=== PATIENT | male | born 1975 | race American Indian/Alaskan Native ===

== ENCOUNTER 2017-02-22 06:34 | Day surgery (SDC) | payer MEDICARE, OTHER ==
[~2017-02-22 06:34] MED LIST: Dextrose 5%-0.45% NaCl 1,000 ML IV SCH; Midazolam 1 MG/ML 2 ML SDV ONE; Sodium Chloride 0.9% 10 ML Syringe FLUSH PRN; fentaNYL 100 MCG/2 ML SDV ONE
[2017-02-22] MEDS ORDERED: fentaNYL 100 MCG/2 ML SDV IV ONE ×3 (07:41→15:02)
[2017-02-22] MEDS ORDERED: Midazolam 1 MG/ML 2 ML SDV IV ONE ×6 (07:42→15:02)
--- NOTE | 2017-02-22 09:08 | OR ---
{null, DATE: 02/22/2017 PROCEDURE: Total colonoscopy and multiple pinch biopsies. INSTRUMENT USED: CF-H180AL Olympus video colonoscope. Olympus distal attachment device. PREMEDICATIONS: Fentanyl 100 mcg intravenous, Versed 3 mg intravenous. Nasal O2 cannula. The procedure was done under pulse oximetry, BP recording, and threat monitoring analyst. INDICATION: The patient with rectal bleeding. Colonoscopic examination is done for detection of any polypoid lesions and removal, endoscopic hemostasis therapy if needed. DESCRIPTION OF PROCEDURE: Initial rectal exam was unremarkable. Rigid anoscopy showed small internal hemorrhoids and diffuse distal rectal mucosal erythema. The colonoscope was passed with ease. Photographs were taken of the distal rectum with diffuse erythema, multiple pinch biopsies were obtained and sent for histopathology. Multiple pinch biopsies were also obtained from the normal appearing sigmoid mucosa and sent for histopathology. The colonoscope was passed with ease up to the ileocecal area, photographs were taken of the normal- appearing cecum, identified by landmarks of appendiceal orifice and double- bulged ileocecal folds. The examination was compromised in a few areas due to the presence of large amount of fecal material. No bleeding was noted from any of the visualized areas at the commencement of the examination. No stricture. No vascular ectasia. No large isolated ulcerations seen. No polyp or tumor mass identified. Probing the proximal sides of folds and flexures, using adequate distention and clearing up the stool material, withdrawal of the scope was made. Multiple pinch biopsies were taken from the normal-appearing mucosa of the mid transverse colon, and distal descending colon, and sent for histopathology. No bleeding was noted from any of the visualized areas at the completion of examination. IMPRESSION: Internal hemorrhoids. The patient tolerated the procedure well. [facility] /[id number] }
[2017-02-22 09:52] VITALS: BP 124/80
--- NOTE | 2017-02-22 10:43 | LETTER ---
{null, 02/22/2017 Vannessa Verma MD [facility] [address] [place] [address] RE: OSCAR ARMOS : [address] Verma: Mr. Oscar Ramos had colonoscopic examination done this morning and he tolerated the procedure well. I herewith send a copy of the endoscopy note and photographs for your review. Thank you. Sincerely, [facility] /[id number] }
== END 2017-02-22 10:00 | disposition home or self-care (01) ==
LOC: DL.ENDO 06:34
PROVIDERS: ATTEND Internal Medicine Gastroenterology
DX: K62.89 Other specified diseases of anus and rectum (principal); K64.8 Other hemorrhoids; F10.21 Alcohol dependence, in remission; F17.210 Nicotine dependence, cigarettes, uncomplicated; Z88.1 Allergy status to other antibiotic agents; L30.9 Dermatitis, unspecified; I10 Essential (primary) hypertension; Z88.8 Allergy status to other drugs, medicaments and biological substances
CPT/HCPCS: 45380; 88305; 99282; J2250; J2930; J3010; J7042

== ENCOUNTER 2017-02-22 10:11 | Emergency (ER) | payer MEDICARE, OTHER ==
[2017-02-22 10:24] VITALS: BP 132/87
[2017-02-22] MEDS ORDERED: methylPREDNISolone Sodium Succinate 125 MG/2 ML SDV IM ONE (10:29)
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
== END 2017-02-22 10:46 | disposition home or self-care (01) ==
LOC: DL.ED 10:11
DX: L30.9 Dermatitis, unspecified (principal); I10 Essential (primary) hypertension; F17.210 Nicotine dependence, cigarettes, uncomplicated; Z88.8 Allergy status to other drugs, medicaments and biological substances
CPT/HCPCS: 99282; J2930

== ENCOUNTER 2017-03-03 21:40 | Emergency (ER) | payer MEDICARE, MEDICAID ==
[2017-03-03 22:54] VITALS: BP 151/96
[2017-03-03] MEDS ORDERED: methylPREDNISolone Sodium Succinate 125 MG/2 ML SDV IM ONE (22:55)
[2017-03-03] MEDS ORDERED: Acetaminophen/HYDROcodone 325-10 MG Tab PO ONE (22:55)
[2017-03-03] MEDS ORDERED: hydrOXYzine HCl 25 MG Tab PO ONE (22:55)
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
== END 2017-03-03 23:24 | disposition home or self-care (01) ==
LOC: DL.ED 21:40
DX: L30.8 Other specified dermatitis (principal); I10 Essential (primary) hypertension; L40.9 Psoriasis, unspecified; F17.210 Nicotine dependence, cigarettes, uncomplicated; Z88.8 Allergy status to other drugs, medicaments and biological substances; Z88.1 Allergy status to other antibiotic agents
CPT/HCPCS: 96372; 99282; A9270; J2930; 99283

== ENCOUNTER 2017-03-30 23:50 | Emergency (ER) | payer MEDICARE, OTHER, MEDICAID ==
[2017-03-30] MEDS ORDERED: Sodium Chloride 0.9% 1,000 ML IV ONE (23:51)
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
[2017-03-31 00:05] VITALS: BP 98/81
[2017-03-31 00:23] LABS: CHLORIDE,CL 106 mmol/L (101-111); SODIUM,NA 137 mmol/L (135-145)
== END 2017-03-31 00:47 ==
LOC: DL.ED 23:50
DX: F10.129 Alcohol abuse with intoxication, unspecified (principal); I10 Essential (primary) hypertension; F17.210 Nicotine dependence, cigarettes, uncomplicated; Y90.8 Blood alcohol level of 240 mg/100 ml or more
CPT/HCPCS: 36415; 80053; 85025; 96365; 99282; 99285; G0480; J7030

== ENCOUNTER 2017-04-23 21:34 | Emergency (ER) | payer MEDICARE, OTHER ==
[2017-04-23 21:46] VITALS: BP 134/93
[2017-04-23] MEDS ORDERED: Triamcinolone Acetonide 40 MG/ML 1 ML MDV INJECT ONE (22:25)
[2017-04-23] MEDS ORDERED: hydrOXYzine HCl 25 MG Tab PO ONE (22:38)
[2017-04-23] MEDS ORDERED: hydrOXYzine HCl 25 MG Tab ONE (22:38)
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
== END 2017-04-23 23:00 | disposition home or self-care (01) ==
LOC: DL.ED 21:34
DX: L30.9 Dermatitis, unspecified (principal); I10 Essential (primary) hypertension; L40.9 Psoriasis, unspecified; F17.210 Nicotine dependence, cigarettes, uncomplicated; Z88.1 Allergy status to other antibiotic agents; Z88.8 Allergy status to other drugs, medicaments and biological substances
CPT/HCPCS: 96372; 99283; A9270; J3301

== ENCOUNTER 2017-10-10 23:43 | Emergency (ER) | payer MEDICARE, OTHER ==
[2017-10-10 23:54] VITALS: BP 135/99
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
[2017-10-11 00:31] LABS: CHLORIDE,CL 106 mmol/L (101-111); SODIUM,NA 143 mmol/L (135-145)
[2017-10-11 00:32] LABS: ACETAMINOPHEN < 10
[2017-10-11] MEDS ORDERED: Bacitracin Oint 1 GM U/D Packet TOP ONE (00:50)
== END 2017-10-11 01:23 ==
LOC: DL.ED 23:43
DX: F10.129 Alcohol abuse with intoxication, unspecified (principal); Y90.8 Blood alcohol level of 240 mg/100 ml or more; R45.851 Suicidal ideations; I10 Essential (primary) hypertension; Z87.891 Personal history of nicotine dependence; Z88.1 Allergy status to other antibiotic agents; Z88.8 Allergy status to other drugs, medicaments and biological substances
CPT/HCPCS: 36415; 80053; 80305; 81001; 85025; 99285; G0480; 99284

== ENCOUNTER 2018-12-09 16:24 | Emergency (ER) | payer MEDICARE ==
[~2018-12-09 16:24] MED LIST changes: -Dextrose 5%-0.45% NaCl 1,000 ML IV SCH; +Diphtheria,Pertussis(Acell),Tetanus Vaccine 0.5 ML SDV IM ONE; -Midazolam 1 MG/ML 2 ML SDV ONE; +Ondansetron 4 MG/2 ML SDV IV ONE; -fentaNYL 100 MCG/2 ML SDV ONE
[2018-12-09 16:25] LABS: ANION GAP 22.7; CHLORIDE,CL 104 mmol/L (101-111); SODIUM,NA 141 mmol/L (135-145)
[2018-12-09] MEDS ORDERED: Lactated Ringers 1,000 ML IV ONE (16:36)
[2018-12-09] MEDS ORDERED: Lidocaine 1% 30 ML SDV INJECT ONE (16:36)
[2018-12-09] MEDS ORDERED: Clindamycin Phosphate 600 MG in Sodium Chloride 0.9% 100 ML IV ONE (17:43)
[2018-12-09] MEDS ORDERED: Bacitracin Oint 1 GM U/D Packet TOP ONE (19:15)
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
== END 2018-12-09 20:00 | disposition home or self-care (01) ==
LOC: DL.ED 16:24
DX: S06.0X9A Concussion with loss of consciousness of unspecified duration, initial encounter (principal); S01.511A Laceration without foreign body of lip, initial encounter; S01.512A Laceration without foreign body of oral cavity, initial encounter; F10.929 Alcohol use, unspecified with intoxication, unspecified; W18.30XA Fall on same level, unspecified, initial encounter; Y90.8 Blood alcohol level of 240 mg/100 ml or more; Z88.8 Allergy status to other drugs, medicaments and biological substances
CPT/HCPCS: 13152; 36415; 40650; 70450; 70486; 71045; 72125; 80053; 80305; 85025; 96361; 96365; 96372; 96375; 99284; 99285; G0480; J2001; J2405; J3490; J7050; J7120; 40830; 90715

== ENCOUNTER 2019-01-03 18:33 | Emergency (ER) | payer MEDICARE ==
[2019-01-03 19:03] VITALS: BP 139/103
[2019-01-03] MEDS ORDERED: methylPREDNISolone Sodium Succinate 125 MG/2 ML SDV IM ONE (19:26)
[2019-01-03] MEDS ORDERED: diphenhydrAMINE 50 MG Cap PO ONE (19:26)
[2019-01-03] MEDS ORDERED: Ibuprofen 800 MG Tab PO ONE (19:26)
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
== END 2019-01-03 19:46 | disposition home or self-care (01) ==
LOC: DL.ED 18:33
DX: L30.9 Dermatitis, unspecified (principal); I10 Essential (primary) hypertension; Z88.8 Allergy status to other drugs, medicaments and biological substances
CPT/HCPCS: 96372; 99282; A9270; J2930; Q0163

== ENCOUNTER 2019-08-09 07:01 | Emergency (ER) | payer MEDICARE, MEDICAID ==
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
[2019-08-09] MEDS ORDERED: Ondansetron 4 MG/2 ML SDV IV ONE (07:16)
[2019-08-09] MEDS ORDERED: Lidocaine 1% with EPINEPHrine 1:100,000 20 ML MDV INJECT ONE (07:16)
[2019-08-09] MEDS ORDERED: MVI, Adult with Vitamin K 10 ML, Thiamine 100 MG, Folic Acid 1 MG in Lactated Ringers 1... IV ONE ×4 (07:16)
[2019-08-09 07:17] VITALS: BP 116/80; PULSE 86
[2019-08-09 07:55] LABS: CHLORIDE,CL 108 mmol/L (101-111); SODIUM,NA 142 mmol/L (135-145)
[2019-08-09] MEDS ORDERED: Acetaminophen 325 MG Tab PO ONE (08:57)
== END 2019-08-09 09:08 | disposition home or self-care (01) ==
LOC: DL.ED 07:01
DX: S01.81XA Laceration without foreign body of other part of head, initial encounter (principal); S01.21XA Laceration without foreign body of nose, initial encounter; X58.XXXA Exposure to other specified factors, initial encounter
CPT/HCPCS: 12013; 36415; 70450; 72125; 80053; 80305; 81003; 82150; 82962; 83690; 85025; 99283; 99284; A9270; G0480; J2405; J3411; J7120; J3490

== ENCOUNTER 2019-11-17 17:32 | Emergency (ER) | payer MEDICARE, MEDICAID ==
[2019-11-17 17:43] VITALS: BP 142/97; PULSE 76
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
[2019-11-17] MEDS ORDERED: Acetaminophen 325 MG Tab PO ONE (18:27)
== END 2019-11-17 18:56 | disposition home or self-care (01) ==
LOC: DL.ED 17:32
DX: S80.01XA Contusion of right knee, initial encounter (principal); M25.461 Effusion, right knee; F10.220 Alcohol dependence with intoxication, uncomplicated; Z88.1 Allergy status to other antibiotic agents; Z88.8 Allergy status to other drugs, medicaments and biological substances; Y04.2XXA Assault by strike against or bumped into by another person, initial encounter; Y90.8 Blood alcohol level of 240 mg/100 ml or more
CPT/HCPCS: 36415; 73562-RT; 80305-QW; 80307; 81003; 99282; 99284-25

== ENCOUNTER 2019-12-11 18:57 | Emergency (ER) | payer MEDICARE, MEDICAID ==
[2019-12-11] MEDS ORDERED: Sodium Chloride 0.9% 10 ML Syringe FLUSH PRN (19:40)
[2019-12-11] MEDS ORDERED: MVI, Adult with Vitamin K 10 ML, Folic Acid 1 MG, Thiamine 100 MG in Lactated Ringers 1... IV ONE ×4 (19:40)
[2019-12-11 19:56] LABS: ANION GAP 15.6; CHLORIDE,CL 109 mmol/L (101-111); SODIUM,NA 142 mmol/L (135-145)
[2019-12-11 20:34] VITALS: BP 133/69; PULSE 82
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
[2019-12-11] MEDS ORDERED: Sodium Chloride 0.9% 1,000 ML IV ONE (20:52)
== END 2019-12-12 00:26 ==
LOC: DL.ED 18:57
DX: F10.129 Alcohol abuse with intoxication, unspecified (principal); Y90.8 Blood alcohol level of 240 mg/100 ml or more; I10 Essential (primary) hypertension; Z88.8 Allergy status to other drugs, medicaments and biological substances
CPT/HCPCS: 36415; 80053; 80307; 85025; 96365; 99282; 99284; J3411; J7120; J3490

== ENCOUNTER 2020-03-20 05:43 | Emergency (ER) | payer MEDICARE, MEDICAID ==
[2020-03-20 05:49] VITALS: BP 116/83; PULSE 88
[2020-03-20] MEDS ORDERED: Famotidine 20 MG/2 ML SDV IVPUSH ONE (06:05)
[2020-03-20] MEDS ORDERED: methylPREDNISolone Sodium Succinate 125 MG/2 ML SDV IVPUSH ONE (06:05)
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
== END 2020-03-20 06:59 | disposition home or self-care (01) ==
LOC: DL.ED 05:43
DX: L50.0 Allergic urticaria (principal); I10 Essential (primary) hypertension; F17.210 Nicotine dependence, cigarettes, uncomplicated; Z91.018 Allergy to other foods; Z88.8 Allergy status to other drugs, medicaments and biological substances; Z88.1 Allergy status to other antibiotic agents
CPT/HCPCS: 96374; 96375; 99283; J2930; J3490

== ENCOUNTER 2020-06-21 20:50 | Emergency (ER) | payer MEDICARE, MEDICAID ==
[2020-06-21] MEDS ORDERED: Ondansetron 4 MG/2 ML SDV ONE (21:04)
[2020-06-21] MEDS ORDERED: Sodium Chloride 0.9% 1,000 ML IV ONE (21:06)
[2020-06-21 21:11] VITALS: BP 121/81; PULSE 84
[2020-06-21] MEDS ORDERED: Ondansetron 4 MG/2 ML SDV IVPUSH ONE (21:14)
[2020-06-21] MEDS ORDERED: Pantoprazole 40 MG Vial IVPUSH ONE (21:31)
[2020-06-21 21:36] LABS: ANION GAP 14.6 mEq/L (7-13); CHLORIDE,CL 108 mmol/L (98-107); SODIUM,NA 147 mmol/L (136-145)
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
== END 2020-06-21 22:40 ==
LOC: DL.ED 20:50
DX: T49.0X2A Poisoning by local antifungal, anti-infective and anti-inflammatory drugs, intentional self-harm, initial encounter (principal); F10.129 Alcohol abuse with intoxication, unspecified; U07.1 COVID-19; I10 Essential (primary) hypertension; F17.200 Nicotine dependence, unspecified, uncomplicated; Z88.8 Allergy status to other drugs, medicaments and biological substances; Z88.1 Allergy status to other antibiotic agents; Z91.018 Allergy to other foods; Y90.8 Blood alcohol level of 240 mg/100 ml or more
CPT/HCPCS: 36415; 80053; 80307; 82150; 83605; 83690; 85025; 96361; 96374; 96375; 99284; 99285; C9113; G0480; J2405; J7030

== ENCOUNTER 2020-07-05 07:12 | Emergency (ER) | payer MEDICARE, MEDICAID ==
[2020-07-05] MEDS ORDERED: methylPREDNISolone Sodium Succinate 125 MG/2 ML SDV IVPUSH ONE (07:19)
[2020-07-05] MEDS ORDERED: Lactated Ringers 1,000 ML IV ONE (07:19)
[2020-07-05] MEDS ORDERED: Famotidine 20 MG/2 ML SDV IVPUSH ONE (07:19)
[2020-07-05 07:24] VITALS: BP 110/70; PULSE 82
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
== END 2020-07-05 09:12 | disposition home or self-care (01) ==
LOC: DL.ED 07:12
DX: L50.0 Allergic urticaria (principal); I10 Essential (primary) hypertension; F17.210 Nicotine dependence, cigarettes, uncomplicated; Z88.1 Allergy status to other antibiotic agents; Z88.8 Allergy status to other drugs, medicaments and biological substances; Z91.018 Allergy to other foods
CPT/HCPCS: 96361; 96374; 96375; 99284; J2930; J3490; J7120; 99283

== ENCOUNTER 2020-08-06 22:29 | Emergency (ER) | payer MEDICARE, MEDICAID ==
[2020-08-06 22:55] VITALS: BP 129/77; PULSE 103
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
--- NOTE | 2020-08-06 23:24 | CR ---
PROCEDURE INFORMATION: Exam: XR Right Knee Exam date and time: 08/06/2020 11:13 PM Age: 45 years old Clinical indication: Other: Etoh-uncooperative; Additional info: Fell few days ago TECHNIQUE: Imaging protocol: XR Right knee. Views: 1 or 2 views. COMPARISON: CR Knee 3V Rt 11/17/2019 5:48 PM FINDINGS: Bones/joints: A moderate-sized joint effusion is present. No fractures are identified. Alignment is anatomic. Soft tissues: Normal. IMPRESSION: 1. Moderate size joint effusion. No acute fracture identified.
== END 2020-08-07 00:09 | disposition home or self-care (01) ==
LOC: DL.ED 22:29
DX: S61.211A Laceration without foreign body of left index finger without damage to nail, initial encounter (principal); M25.461 Effusion, right knee; I10 Essential (primary) hypertension; Z88.8 Allergy status to other drugs, medicaments and biological substances; Z88.1 Allergy status to other antibiotic agents; Z91.018 Allergy to other foods; W45.8XXA Other foreign body or object entering through skin, initial encounter
CPT/HCPCS: 73560-RT; 99283-25

== ENCOUNTER 2020-08-14 21:20 | Emergency (ER) | payer MEDICARE, MEDICAID ==
[2020-08-14 21:27] VITALS: BP 100/54; PULSE 86
[2020-08-14] MEDS ORDERED: MVI, Adult with Vitamin K 10 ML, Folic Acid 1 MG, Thiamine 100 MG in Lactated Ringers 1... IV ONE ×4 (21:53)
[2020-08-14 22:11] LABS: ANION GAP 15.5 mEq/L (7-13); CHLORIDE,CL 108 mmol/L (98-107); SODIUM,NA 146 mmol/L (136-145)
--- NOTE | 2020-08-14 22:33 | CR ---
PROCEDURE INFORMATION: Exam: XR Right Knee Exam date and time: 08/14/2020 9:48 PM Age: 45 years old Clinical indication: Injury or trauma; Fall; Laceration; Patella or knee; Right; Foreign body involvement not specified; Additional info: Pain post fall TECHNIQUE: Imaging protocol: XR Right knee. Views: 3 views. COMPARISON: CR Knee 1V or 2V Rt 08/06/2020 11:13 PM FINDINGS: Bones/joints: Normal. Soft tissues: Normal. IMPRESSION: No fracture.
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
== END 2020-08-15 01:34 ==
LOC: DL.ED 21:20
DX: M25.561 Pain in right knee (principal); F10.920 Alcohol use, unspecified with intoxication, uncomplicated; I10 Essential (primary) hypertension; F17.210 Nicotine dependence, cigarettes, uncomplicated; Z91.018 Allergy to other foods; Z88.1 Allergy status to other antibiotic agents; Z88.8 Allergy status to other drugs, medicaments and biological substances; Y90.8 Blood alcohol level of 240 mg/100 ml or more
CPT/HCPCS: 36415; 73562; 80053; 80305; 80307; 81001; 85025; 93005; 96365; 96366; 99284; J3411; J7120; J3490

== ENCOUNTER 2020-09-14 17:33 | Emergency (ER) | payer MEDICARE, MEDICAID ==
[2020-09-14 18:09] VITALS: BP 146/91; PULSE 98
[2020-09-14] MEDS ORDERED: Dexamethasone 4 MG/ML SDV IM ONE (18:33)
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
[2020-09-14 19:13] LABS: CHLORIDE,CL 102 mmol/L (98-107); SODIUM,NA 138 mmol/L (136-145)
== END 2020-09-14 18:55 | disposition left against medical advice (07) ==
LOC: DL.ED 17:33
DX: L30.9 Dermatitis, unspecified (principal); H60.543 Acute eczematoid otitis externa, bilateral; I10 Essential (primary) hypertension; F17.210 Nicotine dependence, cigarettes, uncomplicated; Z88.8 Allergy status to other drugs, medicaments and biological substances; Z88.1 Allergy status to other antibiotic agents; Z91.018 Allergy to other foods
CPT/HCPCS: 36415; 80053; 85025; 86140; 96372; 99283; J1100

== ENCOUNTER 2020-10-11 06:31 | Emergency (ER) | payer MEDICARE, MEDICAID ==
[2020-10-11 06:35] VITALS: BP 109/75; PULSE 86
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
[2020-10-11] MEDS ORDERED: Naloxone 2 MG/2 ML Syringe IVPUSH ONE (07:08)
[2020-10-11] MEDS ORDERED: Naloxone 2 MG/2 ML Syringe IM ONE (07:08)
[2020-10-11 07:24] LABS: ANION GAP 18.7 mEq/L (7-13); CHLORIDE,CL 105 mmol/L (98-107); SODIUM,NA 141 mmol/L (136-145)
== END 2020-10-11 08:35 | disposition home or self-care (01) ==
LOC: DL.ED 06:31
DX: F10.129 Alcohol abuse with intoxication, unspecified (principal); F15.10 Other stimulant abuse, uncomplicated; L30.1 Dyshidrosis [pompholyx]; I10 Essential (primary) hypertension; Y90.8 Blood alcohol level of 240 mg/100 ml or more; Z88.8 Allergy status to other drugs, medicaments and biological substances; Z88.1 Allergy status to other antibiotic agents; Z91.018 Allergy to other foods
CPT/HCPCS: 36415; 80053; 80307; 85025; 86140; 96372; 99283; 99284; J2310

== ENCOUNTER 2020-10-22 13:20 | Observation (INO) | payer MEDICARE, MEDICAID ==
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
[2020-10-22] MEDS ORDERED: MVI, Adult with Vitamin K 10 ML, Thiamine 100 MG, Folic Acid 1 MG in Lactated Ringers 1... IV ONE ×4 (13:34)
[2020-10-22 14:14] LABS: ANION GAP 16.1 mEq/L (7-13); CHLORIDE,CL 110 mmol/L (98-107); SODIUM,NA 144 mmol/L (136-145)
[2020-10-22] MEDS ORDERED: LORazepam 2 MG/ML SDV IVPUSH PRN (15:45)
[2020-10-22] MEDS ORDERED: Docusate Sodium 100 MG Cap PO PRN (15:46)
[2020-10-22] MEDS ORDERED: Ondansetron 4 MG Tab.DIS PO PRN (15:46)
[2020-10-22] MEDS ORDERED: Temazepam 15 MG Cap PO PRN (15:46)
[2020-10-22] MEDS ORDERED: Sodium Chloride 0.9% 10 ML Syringe FLUSH PRN (15:46)
[2020-10-22] MEDS ORDERED: Morphine 2 MG/ML SYRINGE IVPUSH PRN (15:46)
[2020-10-22] MEDS ORDERED: Acetaminophen 325 MG Tab PO PRN (15:46)
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
[2020-10-22] MEDS ORDERED: Sodium Chloride 0.9% 1,000 ML IV SCH (16:00)
[2020-10-22] MEDS: predniSONE 20 MG Tab PO SCH ×2 (19:52→20:03)
[2020-10-22] MEDS: Acetaminophen/HYDROcodone 325-10 MG Tab PO PRN (19:53)
[2020-10-22] MEDS: LORazepam 0.5 MG Tab PO PRN (19:53)
[2020-10-22] MEDS: Levofloxacin 500 MG Tab PO SCH (20:57)
[2020-10-22] MEDS ORDERED: Hydrocortisone 1% Oint 28 GM Tube TOP SCH (21:00)
[2020-10-22] MEDS: Heparin Sodium 5,000 Units/ML Vial SUBCUT SCH (21:14)
[2020-10-22] MEDS: Hydrocortisone 1% Crm 30 GM Tube TOP SCH (23:35)
[2020-10-23] MEDS: Acetaminophen/HYDROcodone 325-10 MG Tab PO PRN (00:30)
[2020-10-23] MEDS: LORazepam 0.5 MG Tab PO PRN ×4 (01:29→21:33)
[2020-10-23] MEDS: hydrOXYzine HCl 25 MG Tab PO SCH ×4 (03:02→20:57)
[2020-10-23] MEDS: Heparin Sodium 5,000 Units/ML Vial SUBCUT SCH ×4 (04:53→20:59)
[2020-10-23 07:10] LABS: ANION GAP 13.8 mEq/L (7-13); CHLORIDE,CL 109 mmol/L (98-107); SODIUM,NA 141 mmol/L (136-145)
[2020-10-23] MEDS: Multivitamins, Therapeutic with Minerals Tab PO SCH (09:13)
[2020-10-23] MEDS: predniSONE 20 MG Tab PO SCH ×2 (09:14→20:57)
[2020-10-23] MEDS: Thiamine 100 MG Tab PO SCH (09:14)
[2020-10-23] MEDS: Hydrocortisone 1% Crm 30 GM Tube TOP SCH ×2 (09:14→20:58)
[2020-10-23] MEDS: Folic Acid 1 MG Tab PO SCH (09:14)
--- NOTE | 2020-10-23 12:02 | PCM.PN ---
- General Info Date of Service: 10/23/20 Admission Dx/Problem (Free Text): Admission Diagnosis/Problem Admission Diagnosis/Problem Intoxication Subjective Update: the patient is quite withdrawn and minimally at communicating. Last night he got a hold of skin disinfectant spray and drank the content. Continues to have severely dry, flaky skin. Denies pain. Minimally communicative and not volunteering with symptoms, - Patient Data Vitals - Most Recent: Last Vital Signs Temp 100.2 F 10/23/20 00:00 Pulse 99 10/23/20 00:00 Resp 20 10/23/20 00:00 BP 150/84 H 10/23/20 00:00 Pulse Ox 95 10/23/20 00:00 Weight - Most Recent: 218 lb 8 oz I&O - Last 24 Hours: Intake & Output 10/22/20 10/23/20 10/23/20 22:59 06:59 14:59 Intake Total 820 600 Output Total 400 Balance 820 200 Lab Results Last 24 Hours: Laboratory Results - last 24 hr 10/22/20 10/22/20 10/22/20 Range/Units 13:46 13:46 14:12 WBC 11.7 H (5.0-10.0) 10^3/uL RBC 4.15 L (4.6-6.2) 10^6/uL Hgb 13.7 L (14.0-18.0) g/dL Hct 41.2 (40.0-54.0) % MCV 99.3 (80-100) fL MCH 33.0 (27.0-34.0) pg MCHC 33.3 (33.0-35.0) g/dL Plt Count 442 D (150-450) 10^3/uL Neut % (Auto) 32.9 L (42.2-75.2) % Lymph % (Auto) 17.0 L (20.5-50.1) % [place] % (Auto) 7.2 (2-8) % Eos % (Auto) 42.6 H (1.0-3.0) % Baso % (Auto) 0.3 (0.0-1.0) % Add Manual Diff Yes Neutrophils % (Manual) 35 L (42-75) % Lymphocytes % (Manual) 15 L (20-50) % Atypical Lymphs % % Monocytes % (Manual) 6 (2-8) % Eosinophils % (Manual) 44 H (1-3) % Basophils % (Manual) Sodium 144 (136-145) mmol/L Potassium 4.1 (3.5-5.1) mmol/L Chloride 110 H (98-107) mmol/L Carbon Dioxide 22 (21-32) mmol/L Anion Gap 16.1 H (7-13) mEq/L BUN 7 (7-18) mg/dL Creatinine 0.75 (0.70-1.30) mg/dL Est Cr Clr Drug Dosing 125.72 mL/min Estimated GFR (MDRD) > 60 BUN/Creatinine Ratio 9.3 (No establ ref range) Glucose 95 (74-99) mg/dL Calcium 7.2 L (8.5-10.1) mg/dL Phosphorus (2.6-4.7) mg/dL Magnesium 2.0 (1.8-2.4) mg/dL Total Bilirubin 0.2 (0.2-1.0) mg/dL AST 21 (15-37) U/L ALT 16 (16-63) U/L Alkaline Phosphatase 116 (46-116) U/L Total Protein 5.9 L (6.4-8.2) g/dL Albumin 2.6 L (3.4-5.0) g/dL Globulin 3.3 Albumin/Globulin Ratio 0.79 Urine Opiates Screen (NEGATIVE) Ur Oxycodone Screen (NEGATIVE) Urine Methadone Screen (NEGATIVE) Ur Barbiturates Screen (NEGATIVE) U Tricyclic Antidepress (NEGATIVE) Ur Phencyclidine Scrn (NEGATIVE) Ur Amphetamine Screen (NEGATIVE) U Methamphetamines Scrn (NEGATIVE) Urine MDMA Screen (NEGATIVE) U Benzodiazepines Scrn (NEGATIVE) Urine Cocaine Screen (NEGATIVE) U Marijuana (THC) Screen (NEGATIVE) Ethyl Alcohol 336 (0) mg/dL SARS-CoV-2 RNA (FABI) Negative (NEGATIVE) 10/23/20 10/23/20 10/23/20 Range/Units 02:05 06:10 06:10 WBC 5.3 (5.0-10.0) 10^3/uL RBC 3.63 L (4.6-6.2) 10^6/uL Hgb 11.9 L D (14.0-18.0) g/dL Hct 36.3 L (40.0-54.0) % MCV 100.0 (80-100) fL MCH 32.8 (27.0-34.0) pg MCHC 32.8 L (33.0-35.0) g/dL Plt Count 417 (150-450) 10^3/uL Neut % (Auto) 67.0 (42.2-75.2) % Lymph % (Auto) 21.8 (20.5-50.1) % [place] % (Auto) 9.8 H (2-8) % Eos % (Auto) 0.8 L (1.0-3.0) % Baso % (Auto) 0.6 (0.0-1.0) % Add Manual Diff Yes Neutrophils % (Manual) 67 (42-75) % Lymphocytes % (Manual) 19 L (20-50) % Atypical Lymphs % 7 % Monocytes % (Manual) 5 (2-8) % Eosinophils % (Manual) 1 (1-3) % Basophils % (Manual) 1 Sodium 141 (136-145) mmol/L Potassium 4.8 (3.5-5.1) mmol/L Chloride 109 H (98-107) mmol/L Carbon Dioxide 23 (21-32) mmol/L Anion Gap 13.8 H (7-13) mEq/L BUN 7 (7-18) mg/dL Creatinine 0.62 L (0.70-1.30) mg/dL Est Cr Clr Drug Dosing 152.08 mL/min Estimated GFR (MDRD) > 60 BUN/Creatinine Ratio (No establ ref range) Glucose 127 H (74-99) mg/dL Calcium 7.3 L (8.5-10.1) mg/dL Phosphorus 3.1 (2.6-4.7) mg/dL Magnesium 1.9 (1.8-2.4) mg/dL Total Bilirubin (0.2-1.0) mg/dL AST (15-37) U/L ALT (16-63) U/L Alkaline Phosphatase (46-116) U/L Total Protein (6.4-8.2) g/dL Albumin (3.4-5.0) g/dL Globulin Albumin/Globulin Ratio Urine Opiates Screen Positive H (NEGATIVE) Ur Oxycodone Screen Negative (NEGATIVE) Urine Methadone Screen Negative (NEGATIVE) Ur Barbiturates Screen Negative (NEGATIVE) U Tricyclic Antidepress Negative (NEGATIVE) Ur Phencyclidine Scrn Negative (NEGATIVE) Ur Amphetamine Screen Negative (NEGATIVE) U Methamphetamines Scrn Positive H (NEGATIVE) Urine MDMA Screen Negative (NEGATIVE) U Benzodiazepines Scrn Positive H (NEGATIVE) Urine Cocaine Screen Negative (NEGATIVE) U Marijuana (THC) Screen Negative (NEGATIVE) Ethyl Alcohol (0) mg/dL SARS-CoV-2 RNA (FABI) (NEGATIVE) Med Orders - Current: Current Medications Acetaminophen (Tylenol) 650 mg PO Q4H PRN PRN Reason: Pain (Mild 1-3)/fever Hydrocodone Bitart/Acetaminophen ([place] 325-10 Mg) 1 tab PO Q4H PRN PRN Reason: Pain (moderate 4-6) Last Admin: 10/23/20 00:30 Dose: 1 tab Documented by: Docusate Sodium (Colace) 100 mg PO BID PRN PRN Reason: Constipation Emollient Ointment (Hydrocerin Lotion) 0 ml TOP TID [facility] Folic Acid (Folic Acid) 1 mg PO DAILY [facility] Last Admin: 10/23/20 09:14 Dose: 1 mg Documented by: Heparin Sodium (Porcine) (Heparin Sodium) 5,000 units SUBCUT Q8HR [facility] Last Admin: 10/23/20 05:08 Dose: Not Given Documented by: Hydrocortisone (Hydrocortisone 1% Crm) 0 gm TOP Q12H [facility] Last Admin: 10/23/20 09:14 Dose: 1 gram Documented by: Hydroxyzine HCl (Atarax) 50 mg PO Q6H [facility] Last Admin: 10/23/20 09:14 Dose: 50 mg Documented by: Sodium Chloride (Normal Saline) 1,000 mls @ 100 mls/hr IV ASDIRECTED [facility] Last Infusion: 10/23/20 04:53 Dose: 0 mls/hr Documented by: Levofloxacin (Levaquin) 500 mg PO Q24H [facility] Last Admin: 10/22/20 20:57 Dose: 500 mg Documented by: Lorazepam (Ativan) 0 mg PO TITRATE PRN; Protocol PRN Reason: [facility] protocol Last Admin: 10/23/20 09:16 Dose: 2 mg Documented by: Lorazepam (Ativan) 0 mg IVPUSH TITRATE PRN; Protocol PRN Reason: [facility] protocol Last Admin: 10/23/20 03:02 Dose: 2 mg Documented by: Morphine Sulfate (Morphine) 2 mg IVPUSH Q2H PRN PRN Reason: Pain (severe 7-10) Multivitamins/Minerals (Vitamins And Minerals) 1 tab PO WITHBREAKFAST [facility] Last Admin: 10/23/20 09:13 Dose: 1 tab Documented by: Ondansetron HCl (Zofran Odt) 4 mg PO Q6H PRN PRN Reason: nausea, able to take PO Last Admin: 10/22/20 20:57 Dose: 4 mg Documented by: Prednisone (Prednisone) 20 mg PO BID [facility] Last Admin: 10/23/20 09:14 Dose: 20 mg Documented by: Sodium Chloride (Saline Flush) 10 ml FLUSH ASDIRECTED PRN PRN Reason: Keep Vein Open Temazepam (Restoril) 15 mg PO BEDTIME PRN PRN Reason: Sleep Thiamine HCl (Vitamin B-1) 100 mg PO DAILY [facility] Last Admin: 10/23/20 09:14 Dose: 100 mg Documented by: Discontinued Medications Hydrocortisone (Hydrocortisone 1% Oint) 0 gm TOP BID [facility] Last Admin: 10/22/20 23:33 Dose: Not Given Documented by: Multivitamins/Minerals 10 ml/Thiamine HCl 100 mg/ Folic Acid 1 mg/ Lactated Ringer's 1,011.2 mls @ 999 mls/hr IV .BOLUS ONE Stop: 10/22/20 14:34 Last Admin: 10/22/20 13:51 Dose: 999 mls/hr Documented by: - Exam General: Alert, Oriented Neck: Supple Lungs: Clear to Auscultation, Normal Respiratory Effort Cardiovascular: Regular Rate, Regular Rhythm GI/Abdominal Exam: Normal Bowel Sounds, Soft, Non-Tender Extremities: No: Pedal Edema Skin: Other (whole body is covered with flaky, dry skin) Sepsis Event Note - Evaluation Sepsis Screening Result: No Definite Risk - Problem List & Annotations (1) Alcohol intoxication SNOMED Code(s): 02147357 Code(s): F10.129 - ALCOHOL ABUSE WITH INTOXICATION, UNSPECIFIED Status: Acute Current Visit: No (2) Eczema SNOMED Code(s): 67793495 Code(s): L30.9 - DERMATITIS, UNSPECIFIED Status: Acute Current Visit: No (3) Methamphetamine abuse SNOMED Code(s): 110746210 Code(s): F15.10 - OTHER STIMULANT ABUSE, UNCOMPLICATED Status: Acute Current Visit: No - Problem List Review Problem List Initiated/Reviewed/Updated: Yes - My Orders Last 24 Hours: My Active Orders 10/22/20 15:42 Wound Care [RC] Q12HR 10/22/20 15:45 LORazepam [Ativan] See Protocol IVPUSH TITRATE PRN LORazepam [Ativan] See Protocol PO TITRATE PRN 10/22/20 15:46 Oxygen Therapy [RC] PRN Up With Assistance [RC] ASDIRECTED VTE/DVT Education [RC] PER UNIT ROUTINE Vital Signs [RC] 00,04,08,12,16,20 Acetaminophen [TylenoL] 650 mg PO Q4H PRN Acetaminophen/HYDROcodone [[place] 325-10 MG] 1 tab PO Q4H PRN Docusate Sodium [Colace] 100 mg PO BID PRN Morphine 2 mg IVPUSH Q2H PRN Ondansetron [Zofran ODT] 4 mg PO Q6H PRN Sodium Chloride 0.9% [Saline Flush] 10 ml FLUSH ASDIRECTED PRN Temazepam [Restoril] 15 mg PO BEDTIME PRN Peripheral IV Insertion Adult [OM.PC] Routine Resuscitation Status Routine 10/22/20 15:47 Antiembolic Hose [OM.PC] Per Unit Routine 10/22/20 15:48 Antiembolic Devices [RC] QSHIFT Peripheral IV Care [RC] 10/22/20 16:00 Sodium Chloride 0.9% [Normal Saline] 1,000 ml IV ASDIRECTED 10/22/20 Dinner Regular Diet [DIET] 10/22/20 20:00 levoFLOXacin [Levaquin] 500 mg PO Q24H 10/22/20 21:00 predniSONE 20 mg PO BID 10/22/20 21:45 Hydrocortisone [Hydrocortisone 1% Crm] 0 gm TOP Q12H 10/22/20 22:00 Heparin Sodium 5,000 units SUBCUT Q8HR 10/23/20 03:00 hydrOXYzine HCL [Atarax] 50 mg PO Q6H 10/23/20 08:00 Multivitamins/Minerals [Vitamins and Minerals] 1 tab PO WITHBREAKFAST 10/23/20 09:00 Folic Acid 1 mg PO DAILY Thiamine [Vitamin B-1] 100 mg PO DAILY 10/23/20 14:00 I-Prop Myr/Mineral Oil/Water [Hydrocerin Lotion] See Dose Instructions TOP TID - Plan Plan:: 45-year-old that came in with dry, painful scaly rash of the whole body. 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 Severe eczema covering the whole body Will use oral prednisone Will use local hydrocortisone cream with generous amounts ofmoisturizer high risk for cellulitis, infection through the skin started levofloxacin prophylactically pain control will be with Tylenol, hydrocodone, IV morphine for mild, moderate, severe pain Alcohol addiction, substance abuse Will need treatment when skin condition is stabilizing Risk for alcohol withdrawal Will use Ativan per [facility] protocol Will hydrate Follow electrolytes and replace them as needed Chronic alcohol abuse Give thiamine, folate, multivitamin DVT prophylaxis with subcutaneous heparin
[2020-10-23] MEDS: Isopropyl Myristate/Mineral Oil/Water Lotion 240 ML Bottle TOP SCH ×2 (14:04→20:58)
[2020-10-23] MEDS: Levofloxacin 500 MG Tab PO SCH (20:57)
[2020-10-24] MEDS: hydrOXYzine HCl 25 MG Tab PO SCH ×4 (03:35→20:08)
[2020-10-24] MEDS: Heparin Sodium 5,000 Units/ML Vial SUBCUT SCH ×4 (05:14→22:09)
[2020-10-24] MEDS: LORazepam 0.5 MG Tab PO PRN ×3 (05:21→13:10)
[2020-10-24] MEDS: Acetaminophen/HYDROcodone 325-10 MG Tab PO PRN ×2 (05:21→20:11)
[2020-10-24 06:53] LABS: ANION GAP 12.7 mEq/L (7-13); CHLORIDE,CL 104 mmol/L (98-107); SODIUM,NA 140 mmol/L (136-145)
[2020-10-24] MEDS: Thiamine 100 MG Tab PO SCH (08:55)
[2020-10-24] MEDS: predniSONE 20 MG Tab PO SCH ×2 (08:55→20:08)
[2020-10-24] MEDS: Folic Acid 1 MG Tab PO SCH (08:55)
[2020-10-24] MEDS: Hydrocortisone 1% Crm 30 GM Tube TOP SCH ×3 (08:56→22:09)
[2020-10-24] MEDS: Multivitamins, Therapeutic with Minerals Tab PO SCH (08:56)
[2020-10-24] MEDS: Isopropyl Myristate/Mineral Oil/Water Lotion 240 ML Bottle TOP SCH ×3 (08:57→20:08)
--- NOTE | 2020-10-24 11:46 | PCM.PN ---
- General Info Date of Service: 10/24/20 Admission Dx/Problem (Free Text): Admission Diagnosis/Problem Admission Diagnosis/Problem Intoxication Functional Status: Reports: Pain Controlled, Tolerating Diet - Review of Systems General: Denies: Fever Pulmonary: Denies: Shortness of Breath Cardiovascular: Denies: Chest Pain Gastrointestinal: Denies: Abdominal Pain Skin: Reports: Rash - Patient Data Vitals - Most Recent: Last Vital Signs Temp 99.4 F 10/24/20 08:00 Pulse 90 10/24/20 08:00 Resp 20 10/24/20 08:00 BP 154/80 H 10/24/20 08:00 Pulse Ox 99 10/24/20 08:00 Weight - Most Recent: 218 lb 8 oz I&O - Last 24 Hours: Intake & Output 10/23/20 10/24/20 10/24/20 22:59 06:59 14:59 Intake Total 180 380 Balance 180 380 Lab Results Last 24 Hours: Laboratory Results - last 24 hr 10/24/20 10/24/20 Range/Units 06:15 06:15 WBC 7.1 (5.0-10.0) 10^3/uL RBC 3.48 L (4.6-6.2) 10^6/uL Hgb 11.4 L (14.0-18.0) g/dL Hct 34.5 L (40.0-54.0) % MCV 99.1 (80-100) fL MCH 32.8 (27.0-34.0) pg MCHC 33.0 (33.0-35.0) g/dL Plt Count 399 (150-450) 10^3/uL Neut % (Auto) 55.3 (42.2-75.2) % Lymph % (Auto) 32.2 (20.5-50.1) % Foster % (Auto) 9.0 H (2-8) % Eos % (Auto) 2.7 (1.0-3.0) % Baso % (Auto) 0.8 (0.0-1.0) % Sodium 140 (136-145) mmol/L Potassium 3.7 (3.5-5.1) mmol/L Chloride 104 (98-107) mmol/L Carbon Dioxide 27 (21-32) mmol/L Anion Gap 12.7 (7-13) mEq/L BUN 6 L (7-18) mg/dL Creatinine 0.66 L (0.70-1.30) mg/dL Est Cr Clr Drug Dosing 142.87 mL/min Estimated GFR (MDRD) > 60 Glucose 130 H (74-99) mg/dL Calcium 7.5 L (8.5-10.1) mg/dL Phosphorus 2.3 L (2.6-4.7) mg/dL Magnesium 2.0 (1.8-2.4) mg/dL Med Orders - Current: Current Medications Acetaminophen (Tylenol) 650 mg PO Q4H PRN PRN Reason: Pain (Mild 1-3)/fever Hydrocodone Bitart/Acetaminophen ([place] 325-10 Mg) 1 tab PO Q4H PRN PRN Reason: Pain (moderate 4-6) Last Admin: 10/24/20 05:21 Dose: 1 tab Documented by: Docusate Sodium (Colace) 100 mg PO BID PRN PRN Reason: Constipation Emollient Ointment (Hydrocerin Lotion) 0 ml TOP TID [facility] Last Admin: 10/24/20 08:57 Dose: 1 applic Documented by: Folic Acid (Folic Acid) 1 mg PO DAILY [facility] Last Admin: 10/24/20 08:55 Dose: 1 mg Documented by: Heparin Sodium (Porcine) (Heparin Sodium) 5,000 units SUBCUT Q8HR [facility] Last Admin: 10/24/20 05:14 Dose: 5,000 units Documented by: Hydrocortisone (Hydrocortisone 1% Crm) 0 gm TOP Q12H [facility] Last Admin: 10/24/20 08:56 Dose: 30 gram Documented by: Hydroxyzine HCl (Atarax) 50 mg PO Q6H [facility] Last Admin: 10/24/20 08:56 Dose: 50 mg Documented by: Sodium Chloride (Normal Saline) 1,000 mls @ 100 mls/hr IV ASDIRECTED [facility] Last Infusion: 10/23/20 04:53 Dose: 0 mls/hr Documented by: Levofloxacin (Levaquin) 500 mg PO Q24H [facility] Last Admin: 10/23/20 20:57 Dose: 500 mg Documented by: Lorazepam (Ativan) 0 mg PO TITRATE PRN; Protocol PRN Reason: [facility] protocol Last Admin: 10/24/20 09:06 Dose: 1 mg Documented by: Lorazepam (Ativan) 0 mg IVPUSH TITRATE PRN; Protocol PRN Reason: [facility] protocol Last Admin: 10/23/20 03:02 Dose: 2 mg Documented by: Morphine Sulfate (Morphine) 2 mg IVPUSH Q2H PRN PRN Reason: Pain (severe 7-10) Multivitamins/Minerals (Vitamins And Minerals) 1 tab PO WITHBREAKFAST [facility] Last Admin: 10/24/20 08:56 Dose: 1 tab Documented by: Ondansetron HCl (Zofran Odt) 4 mg PO Q6H PRN PRN Reason: nausea, able to take PO Last Admin: 10/22/20 20:57 Dose: 4 mg Documented by: Prednisone (Prednisone) 20 mg PO BID [facility] Last Admin: 10/24/20 08:55 Dose: 20 mg Documented by: Sodium Chloride (Saline Flush) 10 ml FLUSH ASDIRECTED PRN PRN Reason: Keep Vein Open Sodium Phosphate (Neutra-Phos) 500 mg PO Q6H [facility] Stop: 10/24/20 17:46 Temazepam (Restoril) 15 mg PO BEDTIME PRN PRN Reason: Sleep Thiamine HCl (Vitamin B-1) 100 mg PO DAILY [facility] Last Admin: 10/24/20 08:55 Dose: 100 mg Documented by: Discontinued Medications Hydrocortisone (Hydrocortisone 1% Oint) 0 gm TOP BID [facility] Last Admin: 10/22/20 23:33 Dose: Not Given Documented by: Multivitamins/Minerals 10 ml/Thiamine HCl 100 mg/ Folic Acid 1 mg/ Lactated Ringer's 1,011.2 mls @ 999 mls/hr IV .BOLUS ONE Stop: 10/22/20 14:34 Last Admin: 10/22/20 13:51 Dose: 999 mls/hr Documented by: - Exam General: Alert, Oriented Neck: Supple Lungs: Clear to Auscultation, Normal Respiratory Effort Cardiovascular: Regular Rate, Regular Rhythm GI/Abdominal Exam: Normal Bowel Sounds, Soft, Non-Tender Skin: Warm, Rash, Other (dry scaly rash improving) Sepsis Event Note - Evaluation Sepsis Screening Result: No Definite Risk - Focused Exam Vital Signs: Vital Signs Temp Pulse Resp BP Pulse Ox 10/24/20 08:00 99.4 F 90 20 154/80 H 99 10/24/20 03:35 99.9 F 88 20 145/88 H 96 - Problem List & Annotations (1) Alcohol intoxication SNOMED Code(s): 03709834 Code(s): F10.129 - ALCOHOL ABUSE WITH INTOXICATION, UNSPECIFIED Status: Acute Current Visit: No (2) Eczema SNOMED Code(s): 86616597 Code(s): L30.9 - DERMATITIS, UNSPECIFIED Status: Acute Current Visit: No (3) Methamphetamine abuse SNOMED Code(s): 354063655 Code(s): F15.10 - OTHER STIMULANT ABUSE, UNCOMPLICATED Status: Acute Current Visit: No - Problem List Review Problem List Initiated/Reviewed/Updated: Yes - My Orders Last 24 Hours: My Active Orders 10/23/20 14:00 I-Prop Myr/Mineral Oil/Water [Hydrocerin Lotion] See Dose Instructions TOP TID 10/24/20 08:59 Seizure Precautions [OM.PC] Routine 10/24/20 11:45 Phosphorus #1 [Neutra-Phos] 500 mg PO Q6H - Plan Plan:: 45-year-old that came in with dry, painful scaly rash of the whole body. 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 Severe eczema covering the whole body Will use oral prednisone Will use local hydrocortisone cream with generous amounts of moisturizer high risk for cellulitis, infection through the skin started levofloxacin prophylactically pain control will be with Tylenol, hydrocodone, IV morphine for mild, moderate, severe pain Alcohol addiction, substance abuse has been evaluated by [facility] considering alcohol treatment as inpatient Risk for alcohol withdrawal Will use Ativan per [facility] protocol can stop IVF Chronic alcohol abuse Give thiamine, folate, multivitamin DVT prophylaxis with subcutaneous heparin
[2020-10-24] MEDS: Phosphorus #1 250 MG Tab PO SCH ×2 (13:10→17:08)
[2020-10-24] MEDS: Levofloxacin 500 MG Tab PO SCH (20:07)
[2020-10-25] MEDS: hydrOXYzine HCl 25 MG Tab PO SCH ×3 (01:27→08:09)
[2020-10-25] MEDS: LORazepam 0.5 MG Tab PO PRN (01:28)
[2020-10-25] MEDS: Acetaminophen/HYDROcodone 325-10 MG Tab PO PRN ×2 (01:28→08:07)
[2020-10-25] MEDS: Heparin Sodium 5,000 Units/ML Vial SUBCUT SCH (05:06)
[2020-10-25 07:46] VITALS: BP 140/78; PULSE 60
[2020-10-25] MEDS: predniSONE 20 MG Tab PO SCH (08:07)
[2020-10-25] MEDS: Multivitamins, Therapeutic with Minerals Tab PO SCH (08:09)
[2020-10-25] MEDS: Thiamine 100 MG Tab PO SCH (08:09)
[2020-10-25] MEDS: Folic Acid 1 MG Tab PO SCH (08:10)
[2020-10-25] MEDS: Hydrocortisone 1% Crm 30 GM Tube TOP SCH ×2 (08:38→08:39)
[2020-10-25] MEDS: Isopropyl Myristate/Mineral Oil/Water Lotion 240 ML Bottle TOP SCH (08:39)
--- NOTE | 2020-10-25 09:38 | PCM.DCSUM1 ---
Discharge Summary - Hospital Course Free Text/Narrative:: 45-year-old that came in with dry, painful scaly rash of the whole body. 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 Severe eczema covering the whole body Will use local hydrocortisone cream with generous amounts of moisturizer hydroxyzine for itching Alcohol addiction, substance abuse plan for addiction treatment as inpatient Chronic alcohol abuse continue multivitamin Diagnosis: Stroke: No - Discharge Data Discharge Date: 10/25/20 Discharge Disposition: DC/Tfer to Other 70 Condition: Good - Referral to Home Health Primary Care Physician: PCP None - Discharge Diagnosis/Problem(s) (1) Alcohol intoxication SNOMED Code(s): 78490645 ICD Code: F10.129 - ALCOHOL ABUSE WITH INTOXICATION, UNSPECIFIED Status: Acute Current Visit: No (2) Eczema SNOMED Code(s): 56111131 ICD Code: L30.9 - DERMATITIS, UNSPECIFIED Status: Acute Current Visit: No (3) Methamphetamine abuse SNOMED Code(s): 294215296 ICD Code: F15.10 - OTHER STIMULANT ABUSE, UNCOMPLICATED Status: Acute Current Visit: No - Patient Instructions Diet: Regular Diet as Tolerated Activity: As Tolerated - Discharge Plan *PRESCRIPTION DRUG MONITORING PROGRAM REVIEWED*: No *COPY OF PRESCRIPTION DRUG MONITORING REPORT IN PATIENT RASHMI: No Prescriptions/Med Rec: I-Prop Myr/Mineral Oil/Water [Hydrocerin Lotion] 1 gm TOP TID #1 bottle Hydrocortisone [Hydrocortisone 1% Crm] 1 gm TOP TID #1 tube hydrOXYzine HCL [hydrOXYzine] 50 mg PO BID #14 tablet Multivitamins/Minerals [Vitamins and Minerals] 1 tab PO WITHBREAKFAST #30 tablet Home Medications: Home Meds Hydrocortisone [Hydrocortisone 1% Crm] 1 gm TOP TID #1 tube 10/25/20 [Rx] I-Prop Myr/Mineral Oil/Water [Hydrocerin Lotion] 1 gm TOP TID #1 bottle 10/25/20 [Rx] Multivitamins/Minerals [Vitamins and Minerals] 1 tab PO WITHBREAKFAST #30 tablet 10/25/20 [Rx] hydrOXYzine HCL [hydrOXYzine] 50 mg PO BID #14 tablet 10/25/20 [Rx] Referrals: PCP,None [Primary Care Provider] - (in 3-4 days to eval skin) - Discharge Summary/Plan Comment DC Time >30 min.: No - General Info Date of Service: 10/25/20 - Review of Systems General: Denies: Fever Pulmonary: Denies: Shortness of Breath Cardiovascular: Denies: Chest Pain Gastrointestinal: Denies: Abdominal Pain Genitourinary: Denies: Dysuria Skin: Reports: Pruritis Neurological: Denies: Confusion - Patient Data Vitals - Most Recent: Last Vital Signs Temp 98.7 F 10/25/20 07:45 Pulse 60 10/25/20 07:45 Resp 18 10/25/20 07:45 BP 140/78 10/25/20 07:45 Pulse Ox 98 10/25/20 07:45 Weight - Most Recent: 218 lb 8 oz I&O - Last 24 hours: Intake & Output 10/24/20 10/25/20 10/25/20 22:59 06:59 14:59 Intake Total 780 1320 240 Balance 780 1320 240 Med Orders - Current: Current Medications Acetaminophen (Tylenol) 650 mg PO Q4H PRN PRN Reason: Pain (Mild 1-3)/fever Hydrocodone Bitart/Acetaminophen ([place] 325-10 Mg) 1 tab PO Q4H PRN PRN Reason: Pain (moderate 4-6) Last Admin: 10/25/20 08:07 Dose: 1 tab Documented by: Docusate Sodium (Colace) 100 mg PO BID PRN PRN Reason: Constipation Emollient Ointment (Hydrocerin Lotion) 0 ml TOP TID [facility] Last Admin: 10/25/20 08:39 Dose: 1 applic Documented by: Folic Acid (Folic Acid) 1 mg PO DAILY [facility] Last Admin: 10/25/20 08:10 Dose: 1 mg Documented by: Heparin Sodium (Porcine) (Heparin Sodium) 5,000 units SUBCUT Q8HR [facility] Last Admin: 10/25/20 05:06 Dose: 5,000 units Documented by: Hydrocortisone (Hydrocortisone 1% Crm) 0 gm TOP Q12H [facility] Last Admin: 10/25/20 08:38 Dose: 30 gram Documented by: Hydroxyzine HCl (Atarax) 50 mg PO Q6H [facility] Last Admin: 10/25/20 08:09 Dose: 50 mg Documented by: Levofloxacin (Levaquin) 500 mg PO Q24H [facility] Last Admin: 10/24/20 20:07 Dose: 500 mg Documented by: Lorazepam (Ativan) 0 mg PO TITRATE PRN; Protocol PRN Reason: [facility] protocol Last Admin: 10/25/20 01:28 Dose: 1 mg Documented by: Lorazepam (Ativan) 0 mg IVPUSH TITRATE PRN; Protocol PRN Reason: [place] protocol Last Admin: 10/23/20 03:02 Dose: 2 mg Documented by: Morphine Sulfate (Morphine) 2 mg IVPUSH Q2H PRN PRN Reason: Pain (severe 7-10) Multivitamins/Minerals (Vitamins And Minerals) 1 tab PO WITHBREAKFAST [facility] Last Admin: 10/25/20 08:09 Dose: 1 tab Documented by: Ondansetron HCl (Zofran Odt) 4 mg PO Q6H PRN PRN Reason: nausea, able to take PO Last Admin: 10/22/20 20:57 Dose: 4 mg Documented by: Prednisone (Prednisone) 20 mg PO BID [facility] Last Admin: 10/25/20 08:07 Dose: 20 mg Documented by: Sodium Chloride (Saline Flush) 10 ml FLUSH ASDIRECTED PRN PRN Reason: Keep Vein Open Temazepam (Restoril) 15 mg PO BEDTIME PRN PRN Reason: Sleep Last Admin: 10/24/20 20:12 Dose: 15 mg Documented by: Thiamine HCl (Vitamin B-1) 100 mg PO DAILY [facility] Last Admin: 10/25/20 08:09 Dose: 100 mg Documented by: Discontinued Medications Hydrocortisone (Hydrocortisone 1% Oint) 0 gm TOP BID [facility] Last Admin: 10/22/20 23:33 Dose: Not Given Documented by: Multivitamins/Minerals 10 ml/Thiamine HCl 100 mg/ Folic Acid 1 mg/ Lactated Ringer's 1,011.2 mls @ 999 mls/hr IV .BOLUS ONE Stop: 10/22/20 14:34 Last Admin: 10/22/20 13:51 Dose: 999 mls/hr Documented by: Sodium Chloride (Normal Saline) 1,000 mls @ 100 mls/hr IV ASDIRECTED [facility] Last Infusion: 10/23/20 04:53 Dose: 0 mls/hr Documented by: Sodium Phosphate (Neutra-Phos) 500 mg PO Q6H [facility] Stop: 10/24/20 18:01 Last Admin: 10/24/20 17:08 Dose: 500 mg Documented by: - Exam General: Reports: Alert, Oriented Neck: Reports: Supple Lungs: Reports: Clear to Auscultation, Normal Respiratory Effort Cardiovascular: Reports: Regular Rate, Regular Rhythm GI/Abdominal Exam: Normal Bowel Sounds, Soft, Non-Tender Extremities: No Pedal Edema Skin: Reports: Warm, Other (dry skin, flaky all body)
== END 2020-10-25 11:34 | disposition other institution (70) ==
LOC: DL.ED 13:20 → DL.MS 14:19
PROVIDERS: ADMIT Internal Medicine; ATTEND Internal Medicine
DX: L30.9 Dermatitis, unspecified (principal); F10.129 Alcohol abuse with intoxication, unspecified; I10 Essential (primary) hypertension; F17.210 Nicotine dependence, cigarettes, uncomplicated; F15.10 Other stimulant abuse, uncomplicated; Z88.8 Allergy status to other drugs, medicaments and biological substances; Z91.018 Allergy to other foods; Z20.822 Contact with and (suspected) exposure to COVID-19
CPT/HCPCS: 36415; 80048; 80053; 80305-QW; 80307; 83735; 84100; 85025; 96365; 96372; 96375; 99217; 99219; 99225; 99284; 99285-25; A9270-GY; G0378; J1644; J2060; J3411; J3490; J7030; J7120; J7512; U0002

== ENCOUNTER 2020-11-12 22:56 | Emergency (ER) | payer MEDICARE, MEDICAID ==
[2020-11-12] MEDS ORDERED: methylPREDNISolone Sodium Succinate 125 MG/2 ML SDV IVPUSH ONE (23:11)
[2020-11-12] MEDS ORDERED: Famotidine 20 MG Tab PO ONE (23:12)
[2020-11-12] MEDS ORDERED: LORazepam 0.5 MG Tab PO ONE (23:14)
[2020-11-12] MEDS ORDERED: Acetaminophen 325 MG Tab PO ONE (23:14)
[2020-11-12 23:15] VITALS: BP 153/90; PULSE 97
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
== END 2020-11-13 00:01 | disposition home or self-care (01) ==
LOC: DL.ED 22:56
DX: L30.8 Other specified dermatitis (principal); I10 Essential (primary) hypertension; Z88.8 Allergy status to other drugs, medicaments and biological substances; Z88.1 Allergy status to other antibiotic agents; Z91.048 Other nonmedicinal substance allergy status; Z91.018 Allergy to other foods; Z72.0 Tobacco use
CPT/HCPCS: 36415; 83605; 85025; 86140; 96374; 99283; A9270; J2930

== ENCOUNTER 2020-11-21 15:46 | Emergency (ER) | payer MEDICARE, MEDICAID ==
[2020-11-21 16:43] VITALS: BP 147/76; PULSE 75
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
--- NOTE | 2020-11-21 17:33 | CR ---
PROCEDURE INFORMATION: Exam: XR Right Ankle Exam date and time: 11/21/2020 5:22 PM Age: 45 years old Clinical indication: Pain; Ankle; Right; Additional info: Swelling, erythema, and pain TECHNIQUE: Imaging protocol: XR Right ankle. Views: 3 or more views. COMPARISON: No relevant prior studies available. FINDINGS: Bones/joints: There is no evidence of acute fracture. There is no evidence of joint malalignment or dislocation. Soft tissues: Mild soft tissue swelling. IMPRESSION: 1. Mild soft tissue swelling. 2. No evidence of acute fracture. 3. No evidence of acute dislocation.
[2020-11-21 17:46] LABS: ANION GAP 15.4 mEq/L (7-13); CHLORIDE,CL 96 mmol/L (98-107); SODIUM,NA 131 mmol/L (136-145)
[2020-11-21] MEDS ORDERED: Acetaminophen 500 MG Tab PO ONE (18:01)
[2020-11-21 18:42] LABS: CORONAVIRUS COVID-19 NAA NEGATIVE (NEGATIVE)
[2020-11-21] MEDS ORDERED: methylPREDNISolone Sodium Succinate 125 MG/2 ML SDV IVPUSH ONE (19:24)
== END 2020-11-21 20:05 | disposition home or self-care (01) ==
LOC: DL.ED 15:46
DX: L03.115 Cellulitis of right lower limb (principal); L30.8 Other specified dermatitis; I10 Essential (primary) hypertension; Z88.8 Allergy status to other drugs, medicaments and biological substances; Z88.1 Allergy status to other antibiotic agents; Z91.013 Allergy to seafood; Z91.048 Other nonmedicinal substance allergy status; Z72.0 Tobacco use; Z20.822 Contact with and (suspected) exposure to COVID-19
CPT/HCPCS: 0240U; 36415; 73610; 80053; 80305; 80307; 81001; 83605; 85025; 85379; 85651; 86140; 87040; 96365; 96375; 99283; A9270; J2930; J3370; J7040

== ENCOUNTER 2020-12-18 04:10 | Emergency (ER) | payer MEDICARE, MEDICAID ==
[2020-12-18 04:14] VITALS: BP 153/103; PULSE 102
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
[2020-12-18] MEDS ORDERED: Sodium Chloride 0.9% 1,000 ML IV ONE (04:52)
[2020-12-18] MEDS ORDERED: LORazepam 2 MG/ML SDV IVPUSH ONE ×3 (05:04→06:18)
[2020-12-18 05:24] LABS: ACETAMINOPHEN 0 ug/mL (10-30 (Therapeutic)); ANION GAP 18.3 mEq/L (7-13); CHLORIDE,CL 110 mmol/L (98-107); SODIUM,NA 150 mmol/L (136-145)
[2020-12-18] MEDS ORDERED: Sodium Chloride 0.9% 1,000 ML IV SCH (05:30)
== END 2020-12-18 07:30 ==
LOC: DL.ED 04:10
DX: T39.312A Poisoning by propionic acid derivatives, intentional self-harm, initial encounter (principal); T49.0X2A Poisoning by local antifungal, anti-infective and anti-inflammatory drugs, intentional self-harm, initial encounter; R41.82 Altered mental status, unspecified; I10 Essential (primary) hypertension; Z20.822 Contact with and (suspected) exposure to COVID-19; Z88.8 Allergy status to other drugs, medicaments and biological substances; Z88.1 Allergy status to other antibiotic agents; Z91.018 Allergy to other foods
CPT/HCPCS: 36415; 80053; 80143; 80179; 80305; 80307; 81003; 82140; 82150; 83605; 83690; 84484; 85025; 87040; 96374; 96375; 96376; 99285; J2060; J7030; U0002; 93010; G0480

== ENCOUNTER 2020-12-22 23:40 | Emergency (ER) | payer MEDICARE, MEDICAID ==
[2020-12-22] MEDS ORDERED: LORazepam 0.5 MG Tab PO ONE (23:41)
[2020-12-23 00:01] VITALS: BP 105/68; PULSE 100
[2020-12-23 00:37] LABS: ACETAMINOPHEN 1 ug/mL (10-30 (Therapeutic)); ANION GAP 20.6 mEq/L (7-13); CHLORIDE,CL 111 mmol/L (98-107); SODIUM,NA 146 mmol/L (136-145)
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
[2020-12-23] MEDS ORDERED: LORazepam 0.5 MG Tab PO ONE (01:32)
[2020-12-23] MEDS ORDERED: LORazepam 0.5 MG Tab ONE (01:39)
== END 2020-12-23 01:51 ==
LOC: DL.ED 23:40
DX: R45.851 Suicidal ideations (principal); I10 Essential (primary) hypertension; Z91.048 Other nonmedicinal substance allergy status; Z88.8 Allergy status to other drugs, medicaments and biological substances; Z79.899 Other long term (current) drug therapy; Z87.891 Personal history of nicotine dependence
CPT/HCPCS: 36415; 80053; 80143; 80179; 80305; 80307; 81001; 82140; 82150; 83605; 83690; 83735; 84484; 85025; 87040; 93005; 99283; 99285; A9270

== ENCOUNTER 2021-02-05 07:22 | Emergency (ER) | payer MEDICARE, MEDICAID ==
[2021-02-05 07:34] VITALS: BP 103/69; PULSE 84
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
[2021-02-05] MEDS ORDERED: predniSONE 20 MG Tab PO ONE (07:46)
[2021-02-05] MEDS ORDERED: Famotidine 20 MG Tab PO ONE (07:47)
[2021-02-05] MEDS ORDERED: Loratadine 10 MG Tab PO ONE (07:47)
== END 2021-02-05 08:13 | disposition home or self-care (01) ==
LOC: DL.ED 07:22
DX: L20.9 Atopic dermatitis, unspecified (principal); L30.1 Dyshidrosis [pompholyx]; L98.9 Disorder of the skin and subcutaneous tissue, unspecified; Z88.8 Allergy status to other drugs, medicaments and biological substances; Z88.1 Allergy status to other antibiotic agents; Z91.018 Allergy to other foods; Z91.048 Other nonmedicinal substance allergy status; I10 Essential (primary) hypertension
CPT/HCPCS: 99282; 99283; A9270; J7512

== ENCOUNTER 2021-04-14 00:44 | Emergency (ER) | payer MEDICARE, MEDICAID ==
[2021-04-14] MEDS ORDERED: hydrOXYzine HCl 25 MG Tab PO ONE ×3 (00:45→01:14)
[2021-04-14] MEDS ORDERED: Clindamycin Phosphate 600 MG in Sodium Chloride 0.9% 100 ML IV ONE (01:10)
[2021-04-14] MEDS ORDERED: Famotidine 20 MG/2 ML SDV IVPUSH ONE (01:10)
[2021-04-14] MEDS ORDERED: methylPREDNISolone Sodium Succinate 125 MG/2 ML SDV IVPUSH ONE (01:10)
[2021-04-14 01:25] LABS: ANION GAP 14.4 mEq/L (7-13); CHLORIDE,CL 99 mmol/L (98-107); SODIUM,NA 132 mmol/L (136-145)
[2021-04-14 02:00] VITALS: BP 111/62; PULSE 54
[2021-04-14] MEDS ORDERED: Mupirocin Oint 22 GM Tube ONE (02:28)
[2021-04-14] MEDS ORDERED: hydrOXYzine HCl 25 MG Tab ONE (02:28)
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
== END 2021-04-14 02:48 | disposition home or self-care (01) ==
LOC: DL.ED 00:44
DX: L30.9 Dermatitis, unspecified (principal); F10.10 Alcohol abuse, uncomplicated; Y90.7 Blood alcohol level of 200-239 mg/100 ml; I10 Essential (primary) hypertension; Z72.0 Tobacco use; Z91.018 Allergy to other foods; Z91.09 Other allergy status, other than to drugs and biological substances; Z88.1 Allergy status to other antibiotic agents; Z88.8 Allergy status to other drugs, medicaments and biological substances
CPT/HCPCS: 36415; 80053; 80307; 83605; 85025; 86140; 87040; 96365; 96375; 99284; A9270; J2930; J3490

== ENCOUNTER 2021-04-19 17:30 | Emergency (ER) | payer MEDICARE, MEDICAID ==
[2021-04-19 17:43] VITALS: BP 98/73; PULSE 87
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
== END 2021-04-19 18:10 | disposition left against medical advice (07) ==
LOC: DL.ED 17:30
DX: F10.10 Alcohol abuse, uncomplicated (principal); R10.10 Upper abdominal pain, unspecified; R10.84 Generalized abdominal pain; I10 Essential (primary) hypertension; Z72.0 Tobacco use; Z88.8 Allergy status to other drugs, medicaments and biological substances; Z88.1 Allergy status to other antibiotic agents; Z91.048 Other nonmedicinal substance allergy status; Z91.018 Allergy to other foods
CPT/HCPCS: 99282; 99284-25

== ENCOUNTER 2021-04-24 22:40 | Emergency (ER) | payer MEDICARE, MEDICAID | END 2021-04-25 02:39 | disposition left against medical advice (07) | LOC: DL.ED 22:40 | DX: Z53.21 Procedure and treatment not carried out due to patient leaving prior to being seen by health care provider (principal) ==

== ENCOUNTER 2021-04-25 10:30 | Emergency (ER) | payer MEDICARE, MEDICAID ==
[2021-04-25] MEDS ORDERED: Sodium Chloride 0.9% 1,000 ML IV ONE (10:50)
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
[2021-04-25 11:08] VITALS: BP 104/69; PULSE 88
[2021-04-25 11:35] LABS: ANION GAP 20.7 mEq/L (7-13); CHLORIDE,CL 109 mmol/L (98-107); SODIUM,NA 146 mmol/L (136-145)
[2021-04-25 11:39] LABS: ACETAMINOPHEN 0 ug/mL (10-30 (Therapeutic))
[2021-04-25] MEDS ORDERED: Lactated Ringers 1,000 ML IV ONE (12:03)
[2021-04-25 12:47] LABS: AMPHETAMINES,URINE NEGATIVE (NEGATIVE); BARBITURATES,URINE NEGATIVE (NEGATIVE); BENZODIAZEPINE,URINE POSITIVE (NEGATIVE); MDMA (ECSTASY), URINE NEGATIVE (NEGATIVE); METHADONE,URINE NEGATIVE (NEGATIVE); METHAMPHETAMINES,URINE NEGATIVE (NEGATIVE); OPIATES,URINE NEGATIVE (NEGATIVE); OXYCODONE,URINE NEGATIVE (NEGATIVE); PHENCYCLIDINE,URINE NEGATIVE (NEGATIVE); TCA,URINE NEGATIVE (NEGATIVE)
== END 2021-04-25 14:50 ==
LOC: DL.ED 10:30
DX: T43.592A Poisoning by other antipsychotics and neuroleptics, intentional self-harm, initial encounter (principal); T38.0X2A Poisoning by glucocorticoids and synthetic analogues, intentional self-harm, initial encounter; L30.1 Dyshidrosis [pompholyx]; B87.9 Myiasis, unspecified; I10 Essential (primary) hypertension; Z88.8 Allergy status to other drugs, medicaments and biological substances; Z88.1 Allergy status to other antibiotic agents; Z91.048 Other nonmedicinal substance allergy status; Z91.018 Allergy to other foods; Z79.899 Other long term (current) drug therapy
CPT/HCPCS: 36415; 51701; 80053; 80143; 80179; 80305; 80307; 81001; 83605; 83735; 84484; 85025; 86140; 93005; 93010; 99284; 99285; J7030; J7120

== ENCOUNTER 2021-06-08 05:48 | Emergency (ER) | payer MEDICARE, MEDICAID ==
[2021-06-08 06:10] VITALS: BP 144/87; PULSE 105
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
[2021-06-08] MEDS ORDERED: methylPREDNISolone Sodium Succinate 125 MG/2 ML SDV IVPUSH ONE (06:53)
[2021-06-08 07:01] LABS: ANION GAP 15.6 mEq/L (7-13); CHLORIDE,CL 101 mmol/L (98-107); SODIUM,NA 137 mmol/L (136-145)
[2021-06-08] MEDS ORDERED: MVI, Adult with Vitamin K 10 ML, Thiamine 100 MG, Folic Acid 1 MG in Lactated Ringers 1... IV ONE ×4 (07:29)
--- NOTE | 2021-06-08 08:47 | US ---
PROCEDURE INFORMATION: Exam: US Duplex Lower Extremity Veins, Bilateral Exam date and time: 06/08/2021 8:08 AM Age: 46 years old Clinical indication: Pain; Swelling (edema) of limb; Lower extremity, bilateral; Leg, upper and leg, lower; Additional info: B/l lower ext. Swelling pain, d-dimer >1700 TECHNIQUE: Imaging protocol: Real-time duplex ultrasound of the extremities with 2-D davis scale, color Doppler flow and spectral waveform analysis with image documentation. Complete exam focused on the bilateral lower extremity veins. COMPARISON: No relevant prior studies available. FINDINGS: Right deep veins: The common femoral, femoral, popliteal, tibialis posterior, and peroneal veins are patent without thrombus. Normal Doppler waveforms. Normal compressibility and/or augmentation response. Right superficial veins: Saphenofemoral junction is patent without thrombus. Left deep veins: The common femoral, femoral, popliteal, tibialis posterior, and peroneal veins are patent without thrombus. Normal Doppler waveforms. Normal compressibility and/or augmentation response. Left superficial veins: Saphenofemoral junction is patent without thrombus. Soft tissues: Bilateral inguinal lymph nodes are prominent but not pathologically enlarged for the location and preserved fatty bertin. IMPRESSION: No evidence of deep vein thrombosis.
--- NOTE | 2021-06-08 08:53 | CR ---
PROCEDURE INFORMATION: Exam: XR Chest Exam date and time: 06/08/2021 8:38 AM Age: 46 years old Clinical indication: Other: Edema, HX chf, rales TECHNIQUE: Imaging protocol: XR of the chest. Views: 1 view. COMPARISON: CR Chest 1V Frontal 12/09/2018 4:16 PM FINDINGS: Lungs: There are bilateral increased interstitial markings, left greater than right. The central pulmonary vasculature is hazy and indistinct. The appearance is suggestive of pulmonary edema. Pleural spaces: Unremarkable. No pleural effusion. No pneumothorax. Heart/Mediastinum: Unremarkable. No cardiomegaly. Bones/joints: Moderate osteoarthritis involves the right acromioclavicular joint which is likely secondary to a healed distal right clavicle fracture. IMPRESSION: Bilateral increased interstitial markings suggestive of pulmonary edema.
[2021-06-08 09:38] LABS: AMPHETAMINES,URINE NEGATIVE (NEGATIVE); BARBITURATES,URINE NEGATIVE (NEGATIVE); BENZODIAZEPINE,URINE NEGATIVE (NEGATIVE); MDMA (ECSTASY), URINE NEGATIVE (NEGATIVE); METHADONE,URINE NEGATIVE (NEGATIVE); METHAMPHETAMINES,URINE NEGATIVE (NEGATIVE); OPIATES,URINE NEGATIVE (NEGATIVE); OXYCODONE,URINE NEGATIVE (NEGATIVE); PHENCYCLIDINE,URINE NEGATIVE (NEGATIVE); TCA,URINE NEGATIVE (NEGATIVE)
== END 2021-06-08 11:56 | disposition home or self-care (01) ==
LOC: DL.ED 05:48
DX: L30.1 Dyshidrosis [pompholyx] (principal); R60.9 Edema, unspecified; F10.10 Alcohol abuse, uncomplicated; I10 Essential (primary) hypertension; Z88.8 Allergy status to other drugs, medicaments and biological substances; Z88.1 Allergy status to other antibiotic agents; Z91.048 Other nonmedicinal substance allergy status; Z91.018 Allergy to other foods; Z72.0 Tobacco use; Y90.0 Blood alcohol level of less than 20 mg/100 ml
CPT/HCPCS: 36415; 71045; 80053; 80305; 80307; 81003; 83605; 83880; 85025; 85379; 86140; 93970; 96365; 96366; 96367; 96375; 99284; J2930; J3370; J3411; J7050; J7120; J3490

== ENCOUNTER 2021-06-18 04:26 | Inpatient (IN) | payer MEDICARE, MEDICAID ==
[2021-06-18 06:12] LABS: ANION GAP 11.9 mEq/L (7-13); CHLORIDE,CL 106 mmol/L (98-107); SODIUM,NA 141 mmol/L (136-145)
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
[2021-06-18] MEDS ORDERED: Potassium Chloride 20 MEQ in Premix Bag 1 BAG IV ONE (06:18)
[2021-06-18] MEDS ORDERED: MVI, Adult with Vitamin K 10 ML, Folic Acid 1 MG, Thiamine 100 MG in Lactated Ringers 1... IV ONE ×4 (06:20)
[2021-06-18] MEDS ORDERED: Water For Injection, Sterile 40 ML ONE (06:36)
[2021-06-18 06:58] LABS: AMPHETAMINES,URINE NEGATIVE (NEGATIVE); BARBITURATES,URINE NEGATIVE (NEGATIVE); BENZODIAZEPINE,URINE NEGATIVE (NEGATIVE); MDMA (ECSTASY), URINE NEGATIVE (NEGATIVE); METHADONE,URINE NEGATIVE (NEGATIVE); METHAMPHETAMINES,URINE POSITIVE (NEGATIVE); OPIATES,URINE NEGATIVE (NEGATIVE); OXYCODONE,URINE NEGATIVE (NEGATIVE); PHENCYCLIDINE,URINE NEGATIVE (NEGATIVE); TCA,URINE NEGATIVE (NEGATIVE)
[2021-06-18 10:44] LABS: ANION GAP 10.4 mEq/L (7-13); CHLORIDE,CL 111 mmol/L (98-107); SODIUM,NA 144 mmol/L (136-145)
[2021-06-18] MEDS ORDERED: LORazepam 2 MG/ML SDV IVPUSH ONE (15:19)
[2021-06-18] MEDS ORDERED: Ondansetron 4 MG Tab.DIS PO PRN (15:52)
[2021-06-18] MEDS ORDERED: Temazepam 15 MG Cap PO PRN (15:52)
[2021-06-18] MEDS ORDERED: Ketorolac 30 MG/ML SDV IM PRN (15:52)
[2021-06-18] MEDS ORDERED: Haloperidol Lactate 2 MG/ML Oral Soln 15 ML Bottle PO PRN (16:10)
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
[2021-06-18] MEDS ORDERED: Magnesium Sulfate/Water 2 GM in Premix Bag 1 BAG IV ONE (16:52)
[2021-06-18] MEDS: Dextrose 5%-0.45% NaCl 1,000 ML IV SCH (16:52)
[2021-06-18] MEDS: cefTRIAXone 2 GM in Sodium Chloride 0.9% 100 ML IV SCH (16:56)
[2021-06-18] MEDS: Enoxaparin 40 MG/0.4 ML Syringe SUBCUT SCH (16:59)
[2021-06-18 17:57] LABS: PTT,PARTIAL THROMBOPLSTIN TIME 29.6 SEC (22.0-34.0)
[2021-06-18] MEDS: Acetaminophen 325 MG Tab PO PRN (20:56)
[2021-06-18] MEDS: LORazepam 2 MG/ML SDV IVPUSH PRN (22:55)
[2021-06-18] MEDS: Ibuprofen 400 MG Tab PO PRN (23:02)
[2021-06-18] MEDS: chlordiazePOXIDE 25 MG Cap PO PRN (23:53)
[2021-06-19] MEDS: Dextrose 5%-0.45% NaCl 1,000 ML IV SCH ×3 (01:04→13:38)
[2021-06-19] MEDS: Acetaminophen 325 MG Tab PO PRN ×2 (03:00→08:57)
[2021-06-19] MEDS: LORazepam 2 MG/ML SDV IVPUSH PRN (05:11)
[2021-06-19 07:12] LABS: ANION GAP 10.4 mEq/L (7-13); CHLORIDE,CL 106 mmol/L (98-107); SODIUM,NA 139 mmol/L (136-145)
[2021-06-19] MEDS: Enoxaparin 40 MG/0.4 ML Syringe SUBCUT SCH (08:57)
[2021-06-19] MEDS: chlordiazePOXIDE 25 MG Cap PO PRN ×2 (08:57→21:53)
[2021-06-19] MEDS: hydrOXYzine HCl 25 MG Tab PO PRN (13:38)
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
[2021-06-19] MEDS: cefTRIAXone 2 GM in Sodium Chloride 0.9% 100 ML IV SCH (18:00)
[2021-06-19] MEDS: Ibuprofen 400 MG Tab PO PRN (19:01)
[2021-06-19] MEDS ORDERED: Isopropyl Myristate/Mineral Oil/Water Lotion 240 ML Bottle TOP PRN (21:00)
[2021-06-20] MEDS: hydrOXYzine HCl 25 MG Tab PO PRN ×2 (02:01→19:22)
[2021-06-20 06:45] LABS: ANION GAP 10.6 mEq/L (7-13); CHLORIDE,CL 108 mmol/L (98-107); SODIUM,NA 140 mmol/L (136-145)
[2021-06-20] MEDS: Ibuprofen 400 MG Tab PO PRN (10:12)
[2021-06-20] MEDS: chlordiazePOXIDE 25 MG Cap PO PRN (10:14)
[2021-06-20] MEDS: Enoxaparin 40 MG/0.4 ML Syringe SUBCUT SCH (10:14)
--- NOTE | 2021-06-20 12:20 | PCM.PN ---
- General Info Date of Service: 06/20/21 Admission Dx/Problem (Free Text): Admission Diagnosis/Problem Admission Diagnosis/Problem Cellulitis of both feet Subjective Update: Patient did fine overnight. His CIWA is anywhere between 810. Last CIWA score earlier this morning was 8. He reports no cardiopulmonary issues. No fever or chills. No pain but he itches all over. He has diffuse skin desquamation. His WBC is now within normal limits with a stable hemoglobin level. His electrolytes are fairly unremarkable. Functional Status: Reports: Pain Controlled - Review of Systems General: Reports: Weakness. Denies: Fever, Chills HEENT: Reports: No Symptoms Pulmonary: Denies: Shortness of Breath, Cough Cardiovascular: Denies: Chest Pain Gastrointestinal: Denies: Abdominal Pain, Nausea, Vomiting Genitourinary: Denies: Dysuria, Frequency Musculoskeletal: Reports: No Symptoms, Other (Unsteady and weak) Skin: Reports: Other (Skin peeling off). Denies: Cyanosis, Jaundice Neurological: Reports: Tremors, Difficulty Walking, Weakness, Gait Disturbance. Denies: Confusion, Numbness, Seizure, Syncope, Tingling, Trouble Speaking Psychiatric: Denies: Confusion, Mood Lability, Anxiety, Agitation, Hallucinations, Suicidal Ideation, Homicidal Ideation - Patient Data Vitals - Most Recent: Last Vital Signs Temp 37.4 C 06/20/21 08:36 Pulse 102 H 06/20/21 08:36 Resp 20 06/20/21 08:36 BP 84/48 L 06/20/21 08:36 Pulse Ox 96 06/20/21 08:36 Weight - Most Recent: 76.657 kg I&O - Last 24 Hours: Intake & Output 06/19/21 06/20/21 06/20/21 22:59 06:59 14:59 Intake Total 490 Output Total 450 300 Balance 40 -300 Lab Results Last 24 Hours: Laboratory Results - last 24 hr 06/20/21 06/20/21 Range/Units 06:20 06:20 WBC 8.9 (5.0-10.0) 10^3/uL RBC 2.65 L (4.6-6.2) 10^6/uL Hgb 8.4 L (14.0-18.0) g/dL Hct 25.7 L (40.0-54.0) % MCV 97.0 (80-100) fL MCH 31.7 (27.0-34.0) pg MCHC 32.7 L (33.0-35.0) g/dL Plt Count 332 (150-450) 10^3/uL Neut % (Auto) 57.4 (42.2-75.2) % Lymph % (Auto) 15.1 L (20.5-50.1) % Atkinson % (Auto) 4.7 (2-8) % Eos % (Auto) 22.7 H (1.0-3.0) % Baso % (Auto) 0.1 (0.0-1.0) % Sodium 140 (136-145) mmol/L Potassium 3.6 (3.5-5.1) mmol/L Chloride 108 H (98-107) mmol/L Carbon Dioxide 25 (21-32) mmol/L Anion Gap 10.6 (7-13) mEq/L BUN 10 (7-18) mg/dL Creatinine 0.62 L (0.70-1.30) mg/dL Est Cr Clr Drug Dosing 145.71 mL/min Estimated GFR (MDRD) > 60 BUN/Creatinine Ratio 16.1 (No establ ref range) Glucose 91 (70-99) mg/dL Calcium 6.1 L (8.5-10.1) mg/dL Total Bilirubin 0.4 (0.2-1.0) mg/dL AST 26 (15-37) U/L ALT 22 (16-63) U/L Alkaline Phosphatase 122 H (46-116) U/L Total Protein 3.9 L (6.4-8.2) g/dL Albumin < 0.6 L (3.4-5.0) g/dL Globulin 3.17217 Albumin/Globulin Ratio 0 Sammy Results Last 24 Hours: Microbiology 06/18/21 05:37 Aerobic Blood Culture - Preliminary Blood - Arm, Right Anaerobic Blood Culture - Preliminary NO GROWTH AFTER 2 DAYS 06/18/21 16:57 Wound Culture - Preliminary Ankle, Unspecified 06/18/21 05:32 Aerobic Blood Culture - Preliminary Blood - Venous - Iv Start NO GROWTH AFTER 2 DAYS Anaerobic Blood Culture - Preliminary NO GROWTH AFTER 2 DAYS Med Orders - Current: Current Medications Acetaminophen (Acetaminophen 325 Mg Tab) 650 mg PO Q4H PRN PRN Reason: Pain (Mild 1-3)/fever Last Admin: 06/19/21 08:57 Dose: 650 mg Documented by: Chlordiazepoxide HCl (Chlordiazepoxide 25 Mg Cap) 50 mg PO Q8H PRN PRN Reason: Withdrawal Symptoms Last Admin: 06/20/21 10:14 Dose: 50 mg Documented by: Emollient Ointment (Isopropyl Myristate/Mineral Oil/Water Lotion 240 Ml Bottle) 0 ml TOP BID PRN PRN Reason: Dry Skin Last Admin: 06/19/21 17:59 Dose: 1 applic Documented by: Enoxaparin Sodium (Enoxaparin 40 Mg/0.4 Ml Syringe) 40 mg SUBCUT DAILY [facility] Last Admin: 06/20/21 10:14 Dose: 40 mg Documented by: Hydroxyzine HCl (Hydroxyzine Hcl 25 Mg Tab) 25 mg PO Q12HR PRN PRN Reason: itching Last Admin: 06/20/21 02:01 Dose: 25 mg Documented by: Ceftriaxone Sodium 2 gm/ (Sodium Chloride) 100 mls @ 200 mls/hr IV Q24H [facility] Last Admin: 06/19/21 18:00 Dose: 200 mls/hr Documented by: Dextrose/Sodium Chloride (Dextrose 5%-1/2 Ns) 1,000 mls @ 75 mls/hr IV ASDIRECTED [facility] Last Admin: 06/19/21 13:38 Dose: 75 mls/hr Documented by: Vancomycin HCl 1.25 gm/ Sodium (Chloride) 250 mls @ 166.667 mls/hr IV Q8HR [facility] Last Admin: 06/20/21 06:13 Dose: 167 mls/hr Documented by: Ibuprofen (Ibuprofen 400 Mg Tab) 400 mg PO Q6H PRN PRN Reason: Pain (mild 1-3) Last Admin: 06/20/21 10:12 Dose: 400 mg Documented by: Ketorolac Tromethamine (Ketorolac 30 Mg/Ml Sdv) 30 mg IM Q6H PRN PRN Reason: Pain (moderate 4-6) Lorazepam (Lorazepam 2 Mg/Ml Sdv) 1 mg IVPUSH Q6H PRN PRN Reason: Anxiety Last Admin: 06/19/21 05:11 Dose: 1 mg Documented by: Ondansetron HCl (Ondansetron 4 Mg Tab.Dis) 4 mg PO Q6H PRN PRN Reason: nausea, able to take PO Temazepam (Temazepam 15 Mg Cap) 15 mg PO BEDTIME PRN PRN Reason: Sleep Last Admin: 06/18/21 20:57 Dose: 15 mg Documented by: Vancomycin HCl (Pharmacy To Dose - Vancomycin) 0 dose .XX ASDIRECTED YVAN Discontinued Medications Haloperidol Lactate (Haloperidol Lactate 2 Mg/Ml Oral Soln 15 Ml Bottle) 2 mg PO Q12H PRN PRN Reason: widthdrawal Vancomycin HCl 1,250 mg/ (Sodium Chloride) 250 mls @ 166.667 mls/hr IV ONETIME ONE Stop: 06/18/21 07:48 Last Infusion: 06/18/21 08:48 Dose: Infused Documented by: Potassium Chloride 20 meq/ (Premix) 100 mls @ 50 mls/hr IV ONETIME ONE Stop: 06/18/21 08:17 Last Infusion: 06/18/21 08:48 Dose: Infused Documented by: Multivitamins/Minerals 10 ml/Folic Acid 1 mg/ Thiamine HCl 100 mg/ Lactated Ringer's 1,011.2 mls @ 999 mls/hr IV ONETIME ONE Stop: 06/18/21 07:20 Last Infusion: 06/18/21 07:42 Dose: 999 mls/hr Documented by: Sterile Water (Sterile Water For Injection) Confirm Administered Dose 40 mls @ as directed .ROUTE .STK-MED ONE Stop: 06/18/21 06:37 Last Admin: 06/18/21 06:46 Dose: 30 mls/hr Documented by: Vancomycin HCl 1.25 gm/ Sodium (Chloride) 250 mls @ 167 mls/hr IV ONETIME ONE Stop: 06/18/21 19:59 Last Admin: 06/18/21 18:01 Dose: 167 mls/hr Documented by: Dextrose/Sodium Chloride (Dextrose 5%-1/2 Ns) 1,000 mls @ 125 mls/hr IV ASDIREC TATIANNA [facility] Last Infusion: 06/19/21 07:00 Dose: 75 mls/hr Documented by: Magnesium Sulfate 2 gm/ Premix 50 mls @ 25 mls/hr IV ONETIME ONE Stop: 06/18/21 18:51 Last Admin: 06/18/21 18:01 Dose: 25 mls/hr Documented by: Lorazepam (Lorazepam 2 Mg/Ml Sdv) 2 mg IVPUSH ONETIME ONE Stop: 06/18/21 15:20 Last Admin: 06/18/21 15:33 Dose: 2 mg Documented by: - Exam Quality Assessment: No: Supplemental Oxygen Urinary Catheter Total Time: 1Days 15Hours General: Alert, Oriented, Cooperative, No Acute Distress HEENT: Pupils Equal, Pupils Reactive, Mucous Membr. Moist/[place] Neck: Supple Lungs: Clear to Auscultation, Normal Respiratory Effort Cardiovascular: Regular Rate, Regular Rhythm GI/Abdominal Exam: Normal Bowel Sounds, Soft, Non-Tender, No Organomegaly, No Distention, No Abnormal Bruit (Male) Exam: Deferred, Other (Presence of urinary catheter) Back Exam: Normal Inspection, Decreased Range of Motion Extremities: Normal Range of Motion, Non-Tender, No Pedal Edema, Normal Capillary Refill, Other (Bilateral lower extremity wrapped with gauze). No: Normal Inspection Peripheral Pulses: 1+: Dorsalis Pedis (L), Dorsalis Pedis (R) Skin: Warm, Dry, Other (Diffuse ecchymosis all over his body). No: Intact Neurological: No New Focal Deficit. No: Normal Gait Psy/Mental Status: Alert, Normal Affect, Normal Mood, Withdrawal Symptoms, Other (Hand tremors). No: Suicidal Ideation, Homicidal Ideation, Hallucinations - Patient Data Lab Results Last 24 hrs: Laboratory Results - last 24 hr 06/20/21 06/20/21 Range/Units 06:20 06:20 WBC 8.9 (5.0-10.0) 10^3/uL RBC 2.65 L (4.6-6.2) 10^6/uL Hgb 8.4 L (14.0-18.0) g/dL Hct 25.7 L (40.0-54.0) % MCV 97.0 (80-100) fL MCH 31.7 (27.0-34.0) pg MCHC 32.7 L (33.0-35.0) g/dL Plt Count 332 (150-450) 10^3/uL Neut % (Auto) 57.4 (42.2-75.2) % Lymph % (Auto) 15.1 L (20.5-50.1) % Atkinson % (Auto) 4.7 (2-8) % Eos % (Auto) 22.7 H (1.0-3.0) % Baso % (Auto) 0.1 (0.0-1.0) % Sodium 140 (136-145) mmol/L Potassium 3.6 (3.5-5.1) mmol/L Chloride 108 H (98-107) mmol/L Carbon Dioxide 25 (21-32) mmol/L Anion Gap 10.6 (7-13) mEq/L BUN 10 (7-18) mg/dL Creatinine 0.62 L (0.70-1.30) mg/dL Est Cr Clr Drug Dosing 145.71 mL/min Estimated GFR (MDRD) > 60 BUN/Creatinine Ratio 16.1 (No establ ref range) Glucose 91 (70-99) mg/dL Calcium 6.1 L (8.5-10.1) mg/dL Total Bilirubin 0.4 (0.2-1.0) mg/dL AST 26 (15-37) U/L ALT 22 (16-63) U/L Alkaline Phosphatase 122 H (46-116) U/L Total Protein 3.9 L (6.4-8.2) g/dL Albumin < 0.6 L (3.4-5.0) g/dL Globulin 3.08807 Albumin/Globulin Ratio 0 Result Diagrams: 06/22/21 06:27 06/22/21 06:27 Sammy Results Last 24 hrs: Microbiology 06/18/21 05:37 Aerobic Blood Culture - Preliminary Blood - Arm, Right Anaerobic Blood Culture - Preliminary NO GROWTH AFTER 2 DAYS 06/18/21 16:57 Wound Culture - Preliminary Ankle, Unspecified 06/18/21 05:32 Aerobic Blood Culture - Preliminary Blood - Venous - Iv Start NO GROWTH AFTER 2 DAYS Anaerobic Blood Culture - Preliminary NO GROWTH AFTER 2 DAYS Sepsis Event Note - Evaluation Sepsis Screening Result: Sepsis Risk - Focused Exam Vital Signs: Vital Signs Temp Pulse Resp BP BP Pulse Ox 06/20/21 08:36 37.4 C 102 H 20 84/48 L 96 06/20/21 04:55 37.6 C 105 H 22 H 87/51 L 95 06/20/21 00:00 37.2 C 104 H 20 94/50 L 96 - Problem List Review Problem List Initiated/Reviewed/Updated: Yes - Assessment Assessment:: This is a 46-year-old male past medical history of impaired vision, hypertension, history of recurrent pneumonia, liver cirrhosis, history of bradycardia and hypertension, history of seizure, chronic alcoholism, medical noncompliance with treatment, history of eczema/psoriasis on Humira, and homelessness who was admitted for lower extremity cellulitis and inability to care for himself. Assessment: Acute: Status post altered mental status Chronic alcoholism/alcohol withdrawal; moderate CIWA score of 8-10; currently on CIWAA protocol Alcohol intoxication with a documented blood alcohol level of 400 mg/dL Cellulitis with maggot infestation on bilateral lower extremity; wound culture so far shows suspect staph aureus with moderate growth gram-negative los Questionable PVD with good pedal pulses on Doppler check Malnutrition with low protein state Dehydration, improving Hypoalbuminemia with albumin of less than 0.6 Status post leukocytosis with WBC now back to normal range Anemia of chronic disease secondary to poor nutritional intake with current hemoglobin of 8.4 g Hypokalemia, resolved with current potassium of 3.6 Mild hypochloremia with chloride of 108 Mild hypocalcemia with non-corrected calcium of 6.1 Persistent hypomagnesemia with magnesium of 1.6 Elevated vitamin B12 of 1649 Elevated alkaline phosphatase level of 122 Methamphetamine abuse positive in UDS Diffuse itching due to skin desquamation unlikely due to staphylococcal skin scalded syndrome; blood cultures so far are negative for 2 days; wound culture are pending Chronic: Impaired vision Recurrent pneumonia Liver cirrhosis Chronic alcoholism Medical noncompliance of treatment Eczema/psoriasis on Humira; last dose was back in January Homelessness/Inability to care for himself - Plan Plan:: Plan: Currently on vancomycin and rocephin for empiric antibiotic treatment day #2 Continue to monitor inflammatory markers As needed electrolyte replacement protocol Check for ionized calcium and repeat magnesium level Routine a.m. labs Whirl pool bath with adequate skin scrub to remove old skin cells Application of topical emollient from head to toe to prevent dryness Nutritional medicine consult for malnutrition Resume home medications Wound care consult DVT/GI prophylaxis CODE STATUS is full
[2021-06-20] MEDS ORDERED: DIPHENHYDRAMINE 25 MG PO PRN (13:08)
[2021-06-20] MEDS ORDERED: Ferrous Sulfate 325 MG Tab PO SCH (14:00)
[2021-06-20] MEDS: Acetaminophen 325 MG Tab PO PRN ×2 (14:11→19:17)
[2021-06-20] MEDS: cefTRIAXone 2 GM in Sodium Chloride 0.9% 100 ML IV SCH (16:23)
[2021-06-20] MEDS ORDERED: Triamcinolone Acetonide 0.1% Crm 15 GM Tube TOP SCH (21:00)
[2021-06-20] MEDS: Isopropyl Myristate/Mineral Oil/Water Lotion 240 ML Bottle TOP SCH (22:00)
[2021-06-21] MEDS: Acetaminophen 325 MG Tab PO PRN ×2 (00:59→20:36)
--- NOTE | 2021-06-21 06:31 | PCM.PN ---
- General Info Date of Service: 06/21/21 Admission Dx/Problem (Free Text): Admission Diagnosis/Problem Admission Diagnosis/Problem Cellulitis of both feet Subjective Update: Patient did much better overnight. His CIWA is anywhere between 46. He reports no cardiopulmonary issues. No fever or chills. He reports no pain and no diffuse itching. He had manual therapeutic desquamation when he was getting a bath yesterday. His WBC remains wnl with stable hemoglobin of 8.5 g level. His magnesium is slightly better at 1.7 but remains low. His non-corrected calcium remains low but with pending ionized calcium level. CRP is now is down to 8.8 from initial level of 8.8. Currently, he denies any acute issues or concerns. Overnight he was hypothermic with a documented temperature as low as 35 C. He was also relatively hypotensive with documented blood pressure as low as 84/41 mm per mercury but no signs of orthostasis. His most recent blood pressure is now within normal limits. Functional Status: Reports: Pain Controlled, Tolerating Diet, Ambulating, Urinating - Review of Systems General: Denies: Fever, Chills HEENT: Reports: No Symptoms Pulmonary: Denies: Shortness of Breath, Pleuritic Chest Pain, Cough Cardiovascular: Denies: Chest Pain Gastrointestinal: Denies: Abdominal Pain, Nausea, Vomiting Genitourinary: Denies: Dysuria, Frequency, Burning Musculoskeletal: Denies: Neck Pain, Back Pain Skin: Reports: Dryness, Other (Diffuse skin desquamation; lower extremity cellulitis). Denies: Cyanosis, Pruritis Neurological: Reports: Difficulty Walking, Weakness. Denies: Confusion Psychiatric: Denies: Confusion, Depression, Anxiety, Agitation, Hallucinations - Patient Data Vitals - Most Recent: Last Vital Signs Temp 37.0 C 06/21/21 04:00 Pulse 93 06/21/21 04:00 Resp 19 06/21/21 04:00 BP 84/41 L 06/21/21 04:00 Pulse Ox 96 06/21/21 04:00 Weight - Most Recent: 76.657 kg I&O - Last 24 Hours: Intake & Output 06/20/21 06/20/21 06/21/21 14:59 22:59 06:59 Intake Total 360 673 Output Total 300 125 Balance 60 548 Lab Results Last 24 Hours: Laboratory Results - last 24 hr 06/20/21 06/20/21 06/20/21 Range/Units 06:20 06:20 13:28 WBC 8.9 (5.0-10.0) 10^3/uL RBC 2.65 L (4.6-6.2) 10^6/uL Hgb 8.4 L (14.0-18.0) g/dL Hct 25.7 L (40.0-54.0) % MCV 97.0 (80-100) fL MCH 31.7 (27.0-34.0) pg MCHC 32.7 L (33.0-35.0) g/dL Plt Count 332 (150-450) 10^3/uL Neut % (Auto) 57.4 (42.2-75.2) % Lymph % (Auto) 15.1 L (20.5-50.1) % [place] % (Auto) 4.7 (2-8) % Eos % (Auto) 22.7 H (1.0-3.0) % Baso % (Auto) 0.1 (0.0-1.0) % ESR (0-15) mm/hr Sodium 140 (136-145) mmol/L Potassium 3.6 (3.5-5.1) mmol/L Chloride 108 H (98-107) mmol/L Carbon Dioxide 25 (21-32) mmol/L Anion Gap 10.6 (7-13) mEq/L BUN 10 (7-18) mg/dL Creatinine 0.62 L (0.70-1.30) mg/dL Est Cr Clr Drug Dosing 145.71 mL/min Estimated GFR (MDRD) > 60 BUN/Creatinine Ratio 16.1 (No establ ref range) Glucose 91 (70-99) mg/dL Calcium 6.1 L (8.5-10.1) mg/dL Magnesium (1.8-2.4) mg/dL Total Bilirubin 0.4 (0.2-1.0) mg/dL AST 26 (15-37) U/L ALT 22 (16-63) U/L Alkaline Phosphatase 122 H (46-116) U/L C-Reactive Protein (0.0-0.9) mg/dL Total Protein 3.9 L (6.4-8.2) g/dL Albumin < 0.6 L (3.4-5.0) g/dL Globulin 3.69656 Albumin/Globulin Ratio 0 Vancomycin Trough 22.6 H (10.0-20.0) ug/mL 06/20/21 06/20/21 Range/Units 13:28 13:28 WBC (5.0-10.0) 10^3/uL RBC (4.6-6.2) 10^6/uL Hgb (14.0-18.0) g/dL Hct (40.0-54.0) % MCV (80-100) fL MCH (27.0-34.0) pg MCHC (33.0-35.0) g/dL Plt Count (150-450) 10^3/uL Neut % (Auto) (42.2-75.2) % Lymph % (Auto) (20.5-50.1) % [place] % (Auto) (2-8) % Eos % (Auto) (1.0-3.0) % Baso % (Auto) (0.0-1.0) % ESR 34 H (0-15) mm/hr Sodium (136-145) mmol/L Potassium (3.5-5.1) mmol/L Chloride (98-107) mmol/L Carbon Dioxide (21-32) mmol/L Anion Gap (7-13) mEq/L BUN (7-18) mg/dL Creatinine (0.70-1.30) mg/dL Est Cr Clr Drug Dosing mL/min Estimated GFR (MDRD) BUN/Creatinine Ratio (No establ ref range) Glucose (70-99) mg/dL Calcium (8.5-10.1) mg/dL Magnesium 1.6 L (1.8-2.4) mg/dL Total Bilirubin (0.2-1.0) mg/dL AST (15-37) U/L ALT (16-63) U/L Alkaline Phosphatase (46-116) U/L C-Reactive Protein 11.8 H (0.0-0.9) mg/dL Total Protein (6.4-8.2) g/dL Albumin (3.4-5.0) g/dL Globulin Albumin/Globulin Ratio Vancomycin Trough (10.0-20.0) ug/mL Sammy Results Last 24 Hours: Microbiology 06/18/21 05:32 Aerobic Blood Culture - Preliminary Blood - Venous - Iv Start NO GROWTH AFTER 3 DAYS Anaerobic Blood Culture - Preliminary NO GROWTH AFTER 3 DAYS 06/18/21 05:37 Aerobic Blood Culture - Preliminary Blood - Arm, Right Anaerobic Blood Culture - Preliminary NO GROWTH AFTER 3 DAYS 06/18/21 16:57 Wound Culture - Preliminary Ankle, Unspecified Med Orders - Current: Current Medications Acetaminophen (Acetaminophen 325 Mg Tab) 650 mg PO Q4H PRN PRN Reason: Pain (Mild 1-3)/fever Last Admin: 06/21/21 00:59 Dose: 650 mg Documented by: Calcium Carbonate (Calcium Carbonate/Vitamin D3 1250 Mg-5 Mcg Tab) 1 tab PO DAILY [facility] Chlordiazepoxide HCl (Chlordiazepoxide 25 Mg Cap) 50 mg PO Q8H PRN PRN Reason: Withdrawal Symptoms Last Admin: 06/20/21 10:14 Dose: 50 mg Documented by: Emollient Ointment (Isopropyl Myristate/Mineral Oil/Water Lotion 240 Ml Bottle) 0 ml TOP BID [facility] Last Admin: 06/20/21 22:00 Dose: 1 applic Documented by: Enoxaparin Sodium (Enoxaparin 40 Mg/0.4 Ml Syringe) 40 mg SUBCUT DAILY [facility] Last Admin: 06/20/21 10:14 Dose: 40 mg Documented by: Ferrous Sulfate (Ferrous Sulfate 325 Mg Tab) 325 mg PO Q48H [facility] Last Admin: 06/20/21 16:19 Dose: 325 mg Documented by: Hydroxyzine HCl (Hydroxyzine Hcl 25 Mg Tab) 25 mg PO Q12HR PRN PRN Reason: itching Last Admin: 06/20/21 19:22 Dose: 25 mg Documented by: Ceftriaxone Sodium 2 gm/ (Sodium Chloride) 100 mls @ 200 mls/hr IV Q24H [facility] Last Infusion: 06/20/21 17:20 Dose: Infused Documented by: Dextrose/Sodium Chloride (Dextrose 5%-1/2 Ns) 1,000 mls @ 75 mls/hr IV ASDIR ECTED [facility] Last Admin: 06/19/21 13:38 Dose: 75 mls/hr Documented by: Vancomycin HCl 1 gm/ Sodium (Chloride) 250 mls @ 166.667 mls/hr IV Q8HR [facility] Last Admin: 06/21/21 06:29 Dose: 166.667 mls/hr Documented by: Ibuprofen (Ibuprofen 400 Mg Tab) 400 mg PO Q6H PRN PRN Reason: Pain (mild 1-3) Last Admin: 06/20/21 10:12 Dose: 400 mg Documented by: Ketorolac Tromethamine (Ketorolac 30 Mg/Ml Sdv) 30 mg IM Q6H PRN PRN Reason: Pain (moderate 4-6) Lorazepam (Lorazepam 2 Mg/Ml Sdv) 1 mg IVPUSH Q6H PRN PRN Reason: Anxiety Last Admin: 06/19/21 05:11 Dose: 1 mg Documented by: Multivitamins/Minerals/Vitamin C (Multivitamin Tab) 1 tab PO DAILY [facility] Non-Formulary Medication (Hydrophilic Ointment [Aquaphilic Ointment]) 1 dose TOP ASDIRECTED PRN PRN Reason: dry skin Ondansetron HCl (Ondansetron 4 Mg Tab.Dis) 4 mg PO Q6H PRN PRN Reason: nausea, able to take PO Temazepam (Temazepam 15 Mg Cap) 15 mg PO BEDTIME PRN PRN Reason: Sleep Last Admin: 06/18/21 20:57 Dose: 15 mg Documented by: Thiamine HCl (Thiamine 100 Mg Tab) 100 mg PO DAILY [facility] Vancomycin HCl (Pharmacy To Dose - Vancomycin) 0 dose .XX ASDIRECTED [facility] Discontinued Medications Emollient Ointment (Isopropyl Myristate/Mineral Oil/Water Lotion 240 Ml Bottle) 0 ml TOP BID PRN PRN Reason: Dry Skin Last Admin: 06/19/21 17:59 Dose: 1 applic Documented by: Haloperidol Lactate (Haloperidol Lactate 2 Mg/Ml Oral Soln 15 Ml Bottle) 2 mg PO Q12H PRN PRN Reason: widthdrawal Vancomycin HCl 1,250 mg/ (Sodium Chloride) 250 mls @ 166.667 mls/hr IV ONETIME ONE Stop: 06/18/21 07:48 Last Infusion: 06/18/21 08:48 Dose: Infused Documented by: Potassium Chloride 20 meq/ (Premix) 100 mls @ 50 mls/hr IV ONETIME ONE Stop: 06/18/21 08:17 Last Infusion: 06/18/21 08:48 Dose: Infused Documented by: Multivitamins/Minerals 10 ml/Folic Acid 1 mg/ Thiamine HCl 100 mg/ Lactated Ringer's 1,011.2 mls @ 999 mls/hr IV ONETIME ONE Stop: 06/18/21 07:20 Last Infusion: 06/18/21 07:42 Dose: 999 mls/hr Documented by: Sterile Water (Sterile Water For Injection) Confirm Administered Dose 40 mls @ as directed .ROUTE .STK-MED ONE Stop: 06/18/21 06:37 Last Admin: 06/18/21 06:46 Dose: 30 mls/hr Documented by: Vancomycin HCl 1.25 gm/ Sodium (Chloride) 250 mls @ 167 mls/hr IV ONETIME ONE Stop: 06/18/21 19:59 Last Admin: 06/18/21 18:01 Dose: 167 mls/hr Documented by: Dextrose/Sodium Chloride (Dextrose 5%-1/2 Ns) 1,000 mls @ 125 mls/hr IV ASDIRECTED [facility] Last Infusion: 06/19/21 07:00 Dose: 75 mls/hr Documented by: Magnesium Sulfate 2 gm/ Premix 50 mls @ 25 mls/hr IV ONETIME ONE Stop: 06/18/21 18:51 Last Admin: 06/18/21 18:01 Dose: 25 mls/hr Documented by: Vancomycin HCl 1.25 gm/ Sodium (Chloride) 250 mls @ 166.667 mls/hr IV Q8HR [facility] Last Admin: 06/20/21 15:36 Dose: Not Given Documented by: Lorazepam (Lorazepam 2 Mg/Ml Sdv) 2 mg IVPUSH ONETIME ONE Stop: 06/18/21 15:20 Last Admin: 06/18/21 15:33 Dose: 2 mg Documented by: - Exam Quality Assessment: Urine Catheter. No: Supplemental Oxygen Urinary Catheter Total Time: 2Days 16Hours General: Alert, Oriented, Cooperative, No Acute Distress HEENT: Pupils Equal, Pupils Reactive, EOMI, Mucous Membr. Moist/[place] Neck: Supple Lungs: Clear to Auscultation, Normal Respiratory Effort Cardiovascular: Regular Rate, Regular Rhythm GI/Abdominal Exam: Normal Bowel Sounds, Soft, Non-Tender, No Organomegaly, No Distention, No Abnormal Bruit (Male) Exam: Deferred, Other (Presence of urinary catheter) Back Exam: Normal Inspection, Decreased Range of Motion Extremities: Pedal Edema, Limited Range of Motion. No: Normal Inspection, Rio's Sign, Leg Pain Peripheral Pulses: 1+: Dorsalis Pedis (L), Dorsalis Pedis (R) Skin: Warm, Dry. No: Intact Neurological: No New Focal Deficit Psy/Mental Status: Alert, Normal Affect, Normal Mood, Withdrawal Symptoms. No: Suicidal Ideation, Homicidal Ideation - Patient Data Lab Results Last 24 hrs: Laboratory Results - last 24 hr 06/20/21 06/20/21 06/20/21 Range/Units 06:20 06:20 13:28 WBC 8.9 (5.0-10.0) 10^3/uL RBC 2.65 L (4.6-6.2) 10^6/uL Hgb 8.4 L (14.0-18.0) g/dL Hct 25.7 L (40.0-54.0) % MCV 97.0 (80-100) fL MCH 31.7 (27.0-34.0) pg MCHC 32.7 L (33.0-35.0) g/dL Plt Count 332 (150-450) 10^3/uL Neut % (Auto) 57.4 (42.2-75.2) % Lymph % (Auto) 15.1 L (20.5-50.1) % [place] % (Auto) 4.7 (2-8) % Eos % (Auto) 22.7 H (1.0-3.0) % Baso % (Auto) 0.1 (0.0-1.0) % ESR (0-15) mm/hr Sodium 140 (136-145) mmol/L Potassium 3.6 (3.5-5.1) mmol/L Chloride 108 H (98-107) mmol/L Carbon Dioxide 25 (21-32) mmol/L Anion Gap 10.6 (7-13) mEq/L BUN 10 (7-18) mg/dL Creatinine 0.62 L (0.70-1.30) mg/dL Est Cr Clr Drug Dosing 145.71 mL/min Estimated GFR (MDRD) > 60 BUN/Creatinine Ratio 16.1 (No establ ref range) Glucose 91 (70-99) mg/dL Calcium 6.1 L (8.5-10.1) mg/dL Magnesium (1.8-2.4) mg/dL Total Bilirubin 0.4 (0.2-1.0) mg/dL AST 26 (15-37) U/L ALT 22 (16-63) U/L Alkaline Phosphatase 122 H (46-116) U/L C-Reactive Protein (0.0-0.9) mg/dL Total Protein 3.9 L (6.4-8.2) g/dL Albumin < 0.6 L (3.4-5.0) g/dL Globulin 3.73006 Albumin/Globulin Ratio 0 Vancomycin Trough 22.6 H (10.0-20.0) ug/mL 06/20/21 06/20/21 Range/Units 13:28 13:28 WBC (5.0-10.0) 10^3/uL RBC (4.6-6.2) 10^6/uL Hgb (14.0-18.0) g/dL Hct (40.0-54.0) % MCV (80-100) fL MCH (27.0-34.0) pg MCHC (33.0-35.0) g/dL Plt Count (150-450) 10^3/uL Neut % (Auto) (42.2-75.2) % Lymph % (Auto) (20.5-50.1) % [place] % (Auto) (2-8) % Eos % (Auto) (1.0-3.0) % Baso % (Auto) (0.0-1.0) % ESR 34 H (0-15) mm/hr Sodium (136-145) mmol/L Potassium (3.5-5.1) mmol/L Chloride (98-107) mmol/L Carbon Dioxide (21-32) mmol/L Anion Gap (7-13) mEq/L BUN (7-18) mg/dL Creatinine (0.70-1.30) mg/dL Est Cr Clr Drug Dosing mL/min Estimated GFR (MDRD) BUN/Creatinine Ratio (No establ ref range) Glucose (70-99) mg/dL Calcium (8.5-10.1) mg/dL Magnesium 1.6 L (1.8-2.4) mg/dL Total Bilirubin (0.2-1.0) mg/dL AST (15-37) U/L ALT (16-63) U/L Alkaline Phosphatase (46-116) U/L C-Reactive Protein 11.8 H (0.0-0.9) mg/dL Total Protein (6.4-8.2) g/dL Albumin (3.4-5.0) g/dL Globulin Albumin/Globulin Ratio Vancomycin Trough (10.0-20.0) ug/mL Result Diagrams: 06/22/21 06:27 06/22/21 06:27 Sammy Results Last 24 hrs: Microbiology 06/18/21 05:32 Aerobic Blood Culture - Preliminary Blood - Venous - Iv Start NO GROWTH AFTER 3 DAYS Anaerobic Blood Culture - Preliminary NO GROWTH AFTER 3 DAYS 06/18/21 05:37 Aerobic Blood Culture - Preliminary Blood - Arm, Right Anaerobic Blood Culture - Preliminary NO GROWTH AFTER 3 DAYS 06/18/21 16:57 Wound Culture - Preliminary Ankle, Unspecified Sepsis Event Note - Evaluation Sepsis Screening Result: Possible Sepsis Risk - Focused Exam Vital Signs: Vital Signs Temp Pulse Resp BP BP Pulse Ox 06/21/21 04:00 37.0 C 93 19 84/41 L 96 06/21/21 00:00 37.8 C 107 H 20 103/57 L 96 06/20/21 20:00 35.0 C L 92 20 92/49 L 95 - Problem List Review Problem List Initiated/Reviewed/Updated: Yes - My Orders Last 24 Hours: My Active Orders 06/20/21 13:08 Hydrophilic Ointment [Aquaphilic Ointment] 1 dose TOP ASDIRECTED PRN 06/20/21 13:16 Consult to Dietary [Consult to Boilermaker'S Assistant] [CONS] Routine Consult to Wound Care Services [CONS] Routine 06/20/21 13:28 CALCIUM, IONIZED, SERUM [REF] Stat 06/20/21 14:00 Ferrous Sulfate 325 mg PO Q48H 06/20/21 15:46 Dietary Supplements [RC] TIDMEALS 06/21/21 06:00 BMP [BASIC METABOLIC PANEL,BMP] [CHEM] DAILY CBC WITH AUTO DIFF [HEME] DAILY CRP [C-REACTIVE PROTEIN] [CHEM] DAILY MAGNESIUM [CHEM] DAILY 06/21/21 09:00 Calcium Carbonate/Vitamin D3 [Calcium Carbonate/Vitamin D 1250 MG - 5 MCG] 1 tab PO DAILY Multivitamins [Tab-A-Jeancarlos] 1 tab PO DAILY Thiamine [Vitamin B-1] 100 mg PO DAILY 06/22/21 06:00 BMP [BASIC METABOLIC PANEL,BMP] [CHEM] DAILY CBC WITH AUTO DIFF [HEME] DAILY CRP [C-REACTIVE PROTEIN] [CHEM] DAILY MAGNESIUM [CHEM] DAILY 06/22/21 13:30 VANCOMYCIN TROUGH [CHEM] Timed 06/23/21 06:00 BMP [BASIC METABOLIC PANEL,BMP] [CHEM] DAILY CBC WITH AUTO DIFF [HEME] DAILY CRP [C-REACTIVE PROTEIN] [CHEM] DAILY MAGNESIUM [CHEM] DAILY 06/24/21 06:00 BMP [BASIC METABOLIC PANEL,BMP] [CHEM] DAILY CBC WITH AUTO DIFF [HEME] DAILY CRP [C-REACTIVE PROTEIN] [CHEM] DAILY MAGNESIUM [CHEM] DAILY 06/25/21 06:00 BMP [BASIC METABOLIC PANEL,BMP] [CHEM] DAILY CBC WITH AUTO DIFF [HEME] DAILY MAGNESIUM [CHEM] DAILY 06/26/21 06:00 BMP [BASIC METABOLIC PANEL,BMP] [CHEM] DAILY CBC WITH AUTO DIFF [HEME] DAILY MAGNESIUM [CHEM] DAILY 06/27/21 06:00 BMP [BASIC METABOLIC PANEL,BMP] [CHEM] DAILY CBC WITH AUTO DIFF [HEME] DAILY MAGNESIUM [CHEM] DAILY - Assessment Assessment:: This is a 46-year-old male past medical history of impaired vision, hypertension, history of recurrent pneumonia, liver cirrhosis, history of bradycardia and hypertension, history of seizure, chronic alcoholism, medical noncompliance with treatment, history of eczema/psoriasis on Humira, and homelessness who was admitted for lower extremity cellulitis and inability to care for himself. Assessment: Acute: Chronic alcoholism/alcohol withdrawal; mild CIWA score of 4-6; currently on CIWAA protocol Cellulitis with moderate infestation on bilateral lower feet; wound culture shows positive for Proteus mirabilis, Citrobacter freundii and Staph aureus Bacteremia with blood culture showing staph aureus with sensitivity to vancomycin Questionable PVD with good pedal pulses on Doppler check Malnutrition with low protein state Hypoalbuminemia with albumin of less than 0.6; nutritional medicine consult for malnutrition Anemia of chronic disease secondary to poor nutritional intake with current hemoglobin of 8.5 g Mild hyperchloremia with chloride of 108; now at 111 Mild hypocalcemia with non-corrected calcium of 6.5; pending ionized kelsey level (send out) Persistent hypomagnesemia with magnesium of 1.7 Elevated vitamin B12 of 1649 Elevated alkaline phosphatase level of 122 Methamphetamine abuse positive in UDS Diffuse itching due to skin desquamation unlikely due to staphylococcal skin scalded syndrome; wound cultures are pending; blood culture shows staph aureus Relative hypotension Resolved: Status post altered mental status Alcohol intoxication with a documented blood alcohol level of 400 mg/dL; resolved Dehydration, resolved Status post leukocytosis with WBC now back to normal range Hypokalemia, resolved with current potassium of 3.8 Hypothermia with a documented temperature of 35 C Chronic: Impaired vision Recurrent pneumonia Liver cirrhosis Chronic alcoholism Medical noncompliance of treatment Eczema/psoriasis on Humira; last dose was back in January Homelessness/Inability to care for himself - Plan Plan:: Plan: Currently on vancomycin and rocephin for empiric antibiotic treatment day #3 We will discuss with pharmacy for appropriate antibiotic regimen based on sensitivity Continue to monitor inflammatory markers As needed electrolytes replacement protocol Check for ionized calcium and repeat magnesium level; ionized calcium level is a send out Routine a.m. labs Continue with whirl pool bath with manual desquamation (exfoliating scrub to remove all skin cells) Application of topical emollient from head to toe to prevent dryness Nutritional medicine consult for malnutrition Repeat blood cultures tomorrow 1% hydrocortisone as needed to apply areas with excoriation and redness twice a day per patient request Wound care consult Okay to discontinue urinary catheter DVT/GI prophylaxis: Lovenox 40 subcu daily and will add H2 dennis twice daily Anticipated date of discharge: Greater than 96 hours due to recent diagnosis of bacteremia (next week) CODE STATUS is full
[2021-06-21 06:55] LABS: ANION GAP 10.8 mEq/L (7-13); CHLORIDE,CL 111 mmol/L (98-107); SODIUM,NA 142 mmol/L (136-145)
[2021-06-21] MEDS ORDERED: Magnesium Sulfate/Water 2 GM in Premix Bag 1 BAG IV ONE (07:12)
[2021-06-21] MEDS ORDERED: Famotidine 20 MG/2 ML SDV IVPUSH ONE (07:14)
[2021-06-21] MEDS: Calcium Carbonate/Vitamin D3 1250 MG-5 MCG Tab PO SCH (08:53)
[2021-06-21] MEDS: Thiamine 100 MG Tab PO SCH (08:53)
[2021-06-21] MEDS: Multivitamin Tab PO SCH (08:53)
[2021-06-21] MEDS: Enoxaparin 40 MG/0.4 ML Syringe SUBCUT SCH (08:53)
[2021-06-21] MEDS: Isopropyl Myristate/Mineral Oil/Water Lotion 240 ML Bottle TOP SCH ×2 (08:54→20:38)
[2021-06-21] MEDS: cefTRIAXone 2 GM in Sodium Chloride 0.9% 100 ML IV SCH (16:14)
[2021-06-21] MEDS: Famotidine 20 MG Tab PO SCH ×2 (18:02→20:36)
[2021-06-21] MEDS: HYDROPHILIC OINTMENT TOP PRN (20:37)
[2021-06-21] MEDS: hydrOXYzine HCl 25 MG Tab PO PRN (23:08)
[2021-06-22 06:54] LABS: ANION GAP 10.2 mEq/L (7-13); CHLORIDE,CL 110 mmol/L (98-107); SODIUM,NA 141 mmol/L (136-145)
--- NOTE | 2021-06-22 07:07 | PCM.PN ---
- General Info Date of Service: 06/22/21 Admission Dx/Problem (Free Text): Admission Diagnosis/Problem Admission Diagnosis/Problem Cellulitis of both feet Subjective Update: Patient had an uneventful night. His CIWA is anywhere between 2-4. He reports no cardiopulmonary issues. No fever or chills. He is afebrile with a leukocytosis. His hemoglobin slightly dropped to 8 g this morning but no report of active bleeding or melena. His electrolytes are fairly unremarkable with exception of persistent low magnesium of 1.7. Functional Status: Reports: Pain Controlled, Tolerating Diet, Ambulating, Urinating. Denies: New Symptoms - Review of Systems General: Denies: Fever, Weakness, Fatigue, Malaise, Chills HEENT: Reports: No Symptoms Pulmonary: Denies: Shortness of Breath Cardiovascular: Denies: Chest Pain, Dyspnea on Exertion, Lightheadedness Gastrointestinal: Denies: Abdominal Pain, Nausea, Vomiting Genitourinary: Denies: Dysuria, Frequency, Burning, Pain Musculoskeletal: Reports: No Symptoms Skin: Reports: Dryness, Rash. Denies: Cyanosis, Jaundice, Bruising, Pruritis Neurological: Denies: Confusion, Syncope, Difficulty Walking, Weakness, Gait Disturbance Psychiatric: Reports: Anxiety. Denies: Confusion, Depression, Agitation, Hallucinations, Suicidal Ideation, Homicidal Ideation - Patient Data Vitals - Most Recent: Last Vital Signs Temp 36.9 C 06/22/21 04:00 Pulse 92 06/22/21 04:00 Resp 20 06/22/21 04:00 BP 93/49 L 06/22/21 04:00 Pulse Ox 97 06/22/21 04:00 Weight - Most Recent: 76.657 kg I&O - Last 24 Hours: Intake & Output 06/21/21 06/22/21 06/22/21 22:59 06:59 14:59 Intake Total 600 680 Output Total 225 550 Balance 375 130 Lab Results Last 24 Hours: Laboratory Results - last 24 hr 06/22/21 06/22/21 Range/Units 06:27 06:27 WBC 9.1 (5.0-10.0) 10^3/uL RBC 2.56 L (4.6-6.2) 10^6/uL Hgb 8.0 L (14.0-18.0) g/dL Hct 25.1 L (40.0-54.0) % MCV 98.0 (80-100) fL MCH 31.3 (27.0-34.0) pg MCHC 31.9 L (33.0-35.0) g/dL Plt Count 336 (150-450) 10^3/uL Neut % (Auto) 47.5 (42.2-75.2) % Lymph % (Auto) 14.9 L (20.5-50.1) % [place] % (Auto) 8.0 (2-8) % Eos % (Auto) 29.3 H (1.0-3.0) % Baso % (Auto) 0.3 (0.0-1.0) % Add Manual Diff Yes Sodium 141 (136-145) mmol/L Potassium 4.2 (3.5-5.1) mmol/L Chloride 110 H (98-107) mmol/L Carbon Dioxide 25 (21-32) mmol/L Anion Gap 10.2 (7-13) mEq/L BUN 9 (7-18) mg/dL Creatinine 0.55 L (0.70-1.30) mg/dL Est Cr Clr Drug Dosing 164.25 mL/min Estimated GFR (MDRD) > 60 Glucose 92 (70-99) mg/dL Calcium 6.6 L (8.5-10.1) mg/dL Magnesium 1.7 L (1.8-2.4) mg/dL C-Reactive Protein 6.7 H (0.0-0.9) mg/dL Sammy Results Last 24 Hours: Microbiology 06/18/21 05:32 Aerobic Blood Culture - Preliminary Blood - Venous - Iv Start NO GROWTH AFTER 4 DAYS Anaerobic Blood Culture - Preliminary NO GROWTH AFTER 4 DAYS 06/18/21 05:37 Aerobic Blood Culture - Final Blood - Arm, Right Staphylococcus Aureus Anaerobic Blood Culture - Preliminary NO GROWTH AFTER 4 DAYS 06/18/21 16:57 Wound Culture - Final Ankle, Unspecified Proteus Mirabilis Citrobacter Freundii Staphylococcus Aureus Med Orders - Current: Current Medications Acetaminophen (Acetaminophen 325 Mg Tab) 650 mg PO Q4H PRN PRN Reason: Pain (Mild 1-3)/fever Last Admin: 06/21/21 20:36 Dose: 650 mg Documented by: Calcium Carbonate (Calcium Carbonate/Vitamin D3 1250 Mg-5 Mcg Tab) 1 tab PO DAILY YVAN Last Admin: 06/21/21 08:53 Dose: 1 tab Documented by: Chlordiazepoxide HCl (Chlordiazepoxide 25 Mg Cap) 50 mg PO Q8H PRN PRN Reason: Withdrawal Symptoms Last Admin: 06/20/21 10:14 Dose: 50 mg Documented by: Emollient Ointment (Isopropyl Myristate/Mineral Oil/Water Lotion 240 Ml Bottle) 0 ml TOP BID [facility] Last Admin: 06/21/21 20:38 Dose: 1 applic Documented by: Enoxaparin Sodium (Enoxaparin 40 Mg/0.4 Ml Syringe) 40 mg SUBCUT DAILY [facility] Last Admin: 06/21/21 08:53 Dose: 40 mg Documented by: Famotidine (Famotidine 20 Mg Tab) 20 mg PO BID [facility] Last Admin: 06/21/21 20:36 Dose: 20 mg Documented by: Ferrous Sulfate (Ferrous Sulfate 325 Mg Tab) 325 mg PO Q48H [facility] Last Admin: 06/20/21 16:19 Dose: 325 mg Documented by: Hydroxyzine HCl (Hydroxyzine Hcl 25 Mg Tab) 25 mg PO Q12HR PRN PRN Reason: itching Last Admin: 06/21/21 23:08 Dose: 25 mg Documented by: Ceftriaxone Sodium 2 gm/ (Sodium Chloride) 100 mls @ 200 mls/hr IV Q24H [facility] Last Admin: 06/21/21 16:14 Dose: 200 mls/hr Documented by: Vancomycin HCl 1 gm/ Sodium (Chloride) 250 mls @ 166.667 mls/hr IV Q8HR [facility] Last Admin: 06/22/21 06:05 Dose: 166.667 mls/hr Documented by: Ibuprofen (Ibuprofen 400 Mg Tab) 400 mg PO Q6H PRN PRN Reason: Pain (mild 1-3) Last Admin: 06/20/21 10:12 Dose: 400 mg Documented by: Ketorolac Tromethamine (Ketorolac 30 Mg/Ml Sdv) 30 mg IM Q6H PRN PRN Reason: Pain (moderate 4-6) Lorazepam (Lorazepam 2 Mg/Ml Sdv) 1 mg IVPUSH Q6H PRN PRN Reason: Anxiety Last Admin: 06/19/21 05:11 Dose: 1 mg Documented by: Multivitamins/Minerals/Vitamin C (Multivitamin Tab) 1 tab PO DAILY [facility] Last Admin: 06/21/21 08:53 Dose: 1 tab Documented by: Hydrophilic Ointment [Aquaphilic Ointment] 454 Gm Oint Non Formulary Item 0 dose TOP ASDIRECTED PRN PRN Reason: dry skin Last Admin: 06/21/21 20:37 Dose: 1 dose Documented by: Ondansetron HCl (Ondansetron 4 Mg Tab.Dis) 4 mg PO Q6H PRN PRN Reason: nausea, able to take PO Temazepam (Temazepam 15 Mg Cap) 15 mg PO BEDTIME PRN PRN Reason: Sleep Last Admin: 06/18/21 20:57 Dose: 15 mg Documented by: Thiamine HCl (Thiamine 100 Mg Tab) 100 mg PO DAILY [facility] Last Admin: 06/21/21 08:53 Dose: 100 mg Documented by: Vancomycin HCl (Pharmacy To Dose - Vancomycin) 0 dose .XX ASDIRECTED YVAN Discontinued Medications Emollient Ointment (Isopropyl Myristate/Mineral Oil/Water Lotion 240 Ml Bottle) 0 ml TOP BID PRN PRN Reason: Dry Skin Last Admin: 06/19/21 17:59 Dose: 1 applic Documented by: Famotidine (Famotidine 20 Mg/2 Ml Sdv) 20 mg IVPUSH ONETIME ONE Stop: 06/21/21 07:15 Last Admin: 06/21/21 08:53 Dose: 20 mg Documented by: Haloperidol Lactate (Haloperidol Lactate 2 Mg/Ml Oral Soln 15 Ml Bottle) 2 mg PO Q12H PRN PRN Reason: widthdrawal Vancomycin HCl 1,250 mg/ (Sodium Chloride) 250 mls @ 166.667 mls/hr IV ONETIME ONE Stop: 06/18/21 07:48 Last Infusion: 06/18/21 08:48 Dose: Infused Documented by: Potassium Chloride 20 meq/ (Premix) 100 mls @ 50 mls/hr IV ONETIME ONE Stop: 06/18/21 08:17 Last Infusion: 06/18/21 08:48 Dose: Infused Documented by: Multivitamins/Minerals 10 ml/Folic Acid 1 mg/ Thiamine HCl 100 mg/ Lactated Ringer's 1,011.2 mls @ 999 mls/hr IV ONETIME ONE Stop: 06/18/21 07:20 Last Infusion: 06/18/21 07:42 Dose: 999 mls/hr Documented by: Sterile Water (Sterile Water For Injection) Confirm Administered Dose 40 mls @ as directed .ROUTE .STK-MED ONE Stop: 06/18/21 06:37 Last Admin: 06/18/21 06:46 Dose: 30 mls/hr Documented by: Vancomycin HCl 1.25 gm/ Sodium (Chloride) 250 mls @ 167 mls/hr IV ONETIME ONE Stop: 06/18/21 19:59 Last Admin: 06/18/21 18:01 Dose: 167 mls/hr Documented by: Dextrose/Sodium Chloride (Dextrose 5%-1/2 Ns) 1,000 mls @ 125 mls/hr IV ASDIRECTED [facility] Last Infusion: 06/19/21 07:00 Dose: 75 mls/hr Documented by: Magnesium Sulfate 2 gm/ Premix 50 mls @ 25 mls/hr IV ONETIME ONE Stop: 06/18/21 18:51 Last Admin: 06/18/21 18:01 Dose: 25 mls/hr Documented by: Dextrose/Sodium Chloride (Dextrose 5%-1/2 Ns) 1,000 mls @ 75 mls/hr IV ASDIRECTED [facility] Last Admin: 06/19/21 13:38 Dose: 75 mls/hr Documented by: Vancomycin HCl 1.25 gm/ Sodium (Chloride) 250 mls @ 166.667 mls/hr IV Q8HR [facility] Last Admin: 06/20/21 15:36 Dose: Not Given Documented by: Magnesium Sulfate 2 gm/ Premix 50 mls @ 25 mls/hr IV ONETIME ONE Stop: 06/21/21 09:11 Last Infusion: 06/21/21 10:38 Dose: 25 mls/hr Documented by: Lorazepam (Lorazepam 2 Mg/Ml Sdv) 2 mg IVPUSH ONETIME ONE Stop: 06/18/21 15:20 Last Admin: 06/18/21 15:33 Dose: 2 mg Documented by: - Exam Quality Assessment: No: Supplemental Oxygen Urinary Catheter Total Time: 3Days 23Hours General: Alert, Oriented, Cooperative, No Acute Distress HEENT: Pupils Equal, Pupils Reactive, EOMI, Mucous Membr. Moist/[place] Neck: Supple Lungs: Clear to Auscultation, Normal Respiratory Effort Cardiovascular: Regular Rate, Regular Rhythm GI/Abdominal Exam: Normal Bowel Sounds, Soft, Non-Tender, No Organomegaly, No Distention, No Abnormal Bruit (Male) Exam: Deferred Back Exam: Normal Inspection, Full Range of Motion Extremities: Normal Inspection, Non-Tender, Normal Capillary Refill, Limited Range of Motion Peripheral Pulses: 2+: Dorsalis Pedis (L), Dorsalis Pedis (R) Skin: Warm, Dry, Other (Diffuse skin desquamation) Neurological: No New Focal Deficit, Normal Gait Psy/Mental Status: Alert, Normal Affect, Normal Mood, Anxious. No: Agitated, Suicidal Ideation, Homicidal Ideation, Hallucinations - Patient Data Lab Results Last 24 hrs: Laboratory Results - last 24 hr 06/22/21 06/22/21 Range/Units 06:27 06:27 WBC 9.1 (5.0-10.0) 10^3/uL RBC 2.56 L (4.6-6.2) 10^6/uL Hgb 8.0 L (14.0-18.0) g/dL Hct 25.1 L (40.0-54.0) % MCV 98.0 (80-100) fL MCH 31.3 (27.0-34.0) pg MCHC 31.9 L (33.0-35.0) g/dL Plt Count 336 (150-450) 10^3/uL Neut % (Auto) 47.5 (42.2-75.2) % Lymph % (Auto) 14.9 L (20.5-50.1) % [place] % (Auto) 8.0 (2-8) % Eos % (Auto) 29.3 H (1.0-3.0) % Baso % (Auto) 0.3 (0.0-1.0) % Add Manual Diff Yes Sodium 141 (136-145) mmol/L Potassium 4.2 (3.5-5.1) mmol/L Chloride 110 H (98-107) mmol/L Carbon Dioxide 25 (21-32) mmol/L Anion Gap 10.2 (7-13) mEq/L BUN 9 (7-18) mg/dL Creatinine 0.55 L (0.70-1.30) mg/dL Est Cr Clr Drug Dosing 164.25 mL/min Estimated GFR (MDRD) > 60 Glucose 92 (70-99) mg/dL Calcium 6.6 L (8.5-10.1) mg/dL Magnesium 1.7 L (1.8-2.4) mg/dL C-Reactive Protein 6.7 H (0.0-0.9) mg/dL Result Diagrams: 06/22/21 06:27 06/22/21 06:27 Sammy Results Last 24 hrs: Microbiology 06/18/21 05:32 Aerobic Blood Culture - Preliminary Blood - Venous - Iv Start NO GROWTH AFTER 4 DAYS Anaerobic Blood Culture - Preliminary NO GROWTH AFTER 4 DAYS 06/18/21 05:37 Aerobic Blood Culture - Final Blood - Arm, Right Staphylococcus Aureus Anaerobic Blood Culture - Preliminary NO GROWTH AFTER 4 DAYS 06/18/21 16:57 Wound Culture - Final Ankle, Unspecified Proteus Mirabilis Citrobacter Freundii Staphylococcus Aureus Sepsis Event Note - Evaluation Sepsis Screening Result: No Definite Risk - Focused Exam Vital Signs: Vital Signs Temp Pulse Resp BP BP Pulse Ox 06/22/21 04:00 36.9 C 92 20 93/49 L 97 06/22/21 00:00 36.8 C 91 20 106/71 100 06/21/21 20:00 38.3 C H 97 18 106/54 L 99 - Problem List Review Problem List Initiated/Reviewed/Updated: Yes - My Orders Last 24 Hours: My Active Orders 06/21/21 09:00 Calcium Carbonate/Vitamin D3 [Calcium Carbonate/Vitamin D 1250 MG - 5 MCG] 1 tab PO DAILY Multivitamins [Tab-A-Jeancarlos] 1 tab PO DAILY Thiamine [Vitamin B-1] 100 mg PO DAILY 06/21/21 10:13 Remove Gordon Catheter [Urinary Catheter Removal] [RC] PER UNIT ROUTINE 06/21/21 19:00 Famotidine [Pepcid] 20 mg PO BID 06/22/21 06:27 CBC WITH AUTO DIFF [HEME] DAILY MANUAL DIFFERENTIAL QA/NC [HEME] Routine 06/22/21 13:30 VANCOMYCIN TROUGH [CHEM] Timed 06/23/21 05:11 CULTURE BLOOD [BC] AM CULTURE BLOOD [BC] AM Blood Culture x2 Reflex Set [OM.PC] AM 06/23/21 06:00 BMP [BASIC METABOLIC PANEL,BMP] [CHEM] DAILY CBC WITH AUTO DIFF [HEME] DAILY CRP [C-REACTIVE PROTEIN] [CHEM] DAILY MAGNESIUM [CHEM] DAILY 06/24/21 06:00 BMP [BASIC METABOLIC PANEL,BMP] [CHEM] DAILY CBC WITH AUTO DIFF [HEME] DAILY CRP [C-REACTIVE PROTEIN] [CHEM] DAILY MAGNESIUM [CHEM] DAILY 06/25/21 06:00 BMP [BASIC METABOLIC PANEL,BMP] [CHEM] DAILY CBC WITH AUTO DIFF [HEME] DAILY MAGNESIUM [CHEM] DAILY 06/26/21 06:00 BMP [BASIC METABOLIC PANEL,BMP] [CHEM] DAILY CBC WITH AUTO DIFF [HEME] DAILY MAGNESIUM [CHEM] DAILY 06/27/21 06:00 BMP [BASIC METABOLIC PANEL,BMP] [CHEM] DAILY CBC WITH AUTO DIFF [HEME] DAILY MAGNESIUM [CHEM] DAILY - Assessment Assessment:: This is a 46-year-old male past medical history of impaired vision, hypertension, history of recurrent pneumonia, liver cirrhosis, history of bradycardia and hypertension, history of seizure, chronic alcoholism, medical noncompliance with treatment, history of eczema/psoriasis on Humira, and homelessness who was admitted for lower extremity cellulitis and inability to care for himself. Assessment: Acute: Status post altered mental status Chronic alcoholism/alcohol withdrawal; moderate CIWA score of 8-10; currently on CIWAA protocol Alcohol intoxication with a documented blood alcohol level of 400 mg/dL Cellulitis with moderate infestation on bilateral lower feet; wound culture so far shows suspect staph aureus with moderate growth gram-negative los Questionable PVD with good pedal pulses on Doppler check Malnutrition with low protein state Dehydration, improving Hypoalbuminemia with albumin of less than 0.6 Status post leukocytosis with WBC now back to normal range Anemia of chronic disease secondary to poor nutritional intake with current hemoglobin of 8.4 g Hypokalemia, resolved with current potassium of 3.6 Mild hypochloremia with chloride of 108 Mild hypocalcemia with noncorrected calcium of 6.1 Persistent hypomagnesemia with magnesium 1.6 Elevated vitamin B12 of 1649 Elevated alkaline phosphatase level of 122 Methamphetamine abuse positive in UDS Diffuse itching due to skin desquamation unlikely due to staphylococcal skin scalded syndrome blood cultures so far; are negative for 2 days; wound culture are pending Chronic: Impaired vision Recurrent pneumonia Liver cirrhosis Chronic alcoholism Medical noncompliance of treatment Eczema/psoriasis on Humira; last dose was back in January Homelessness/Inability to care for himself - Plan Plan:: Plan: Antibiotic treatment day #4 now on Levaquin 750 mg p.o. daily for treatment of bacteremia/cellulitis Continue to monitor inflammatory markers As needed electrolytes replacement protocol Check for ionized calcium and repeat magnesium level; ionized calcium level is a send out Routine a.m. labs Continue with whirl pool bath with manual desquamation (exfoliating scrub to remove all skin cells) Application of topical emollient from head to toe to prevent dryness Nutritional medicine consult for malnutrition Repeat blood cultures today 1% hydrocortisone as needed to apply areas with excoriation and redness twice a day per patient request Continue wound care Encourage patient to be more mobile and ambulate as much as he can DVT/GI prophylaxis: Lovenox 40 subcu daily and will add H2 dennis twice daily Anticipated date of discharge: Greater than 96 hours due to recent diagnosis of bacteremia Anticipate discharge: next week for inpatient chemical rehab once medically cleared CODE STATUS is full
[2021-06-22] MEDS ORDERED: Magnesium Sulfate/Water 2 GM in Premix Bag 1 BAG IV ONE (07:10)
[2021-06-22] MEDS ORDERED: Ferrous Sulfate 325 MG Tab PO SCH (09:00)
[2021-06-22] MEDS: Enoxaparin 40 MG/0.4 ML Syringe SUBCUT SCH (09:15)
[2021-06-22] MEDS: Calcium Carbonate/Vitamin D3 1250 MG-5 MCG Tab PO SCH (09:16)
[2021-06-22] MEDS: Thiamine 100 MG Tab PO SCH (09:16)
[2021-06-22] MEDS: Multivitamin Tab PO SCH (09:16)
[2021-06-22] MEDS: Famotidine 20 MG Tab PO SCH ×2 (09:16→20:08)
[2021-06-22] MEDS: Ascorbic Acid 500 MG Tab PO SCH ×2 (09:17→20:08)
[2021-06-22] MEDS: HYDROPHILIC OINTMENT TOP PRN (09:17)
[2021-06-22] MEDS: Isopropyl Myristate/Mineral Oil/Water Lotion 240 ML Bottle TOP SCH ×2 (09:21→22:55)
[2021-06-22] MEDS ORDERED: Levofloxacin 500 MG Tab PO SCH (11:00)
[2021-06-22] MEDS: Acetaminophen 325 MG Tab PO PRN ×2 (11:44→17:28)
[2021-06-22] MEDS: hydrOXYzine HCl 25 MG Tab PO PRN (12:14)
[2021-06-22] MEDS: Ferrous Sulfate 325 MG Tab PO SCH (17:28)
[2021-06-22] MEDS: Ibuprofen 400 MG Tab PO PRN (20:12)
[2021-06-22] MEDS: Hydrocortisone 1% Crm 30 GM Tube TOP SCH (22:57)
[2021-06-23 00:37] VITALS: BP 109/62; PULSE 100
[2021-06-23] MEDS: Ibuprofen 400 MG Tab PO PRN (04:50)
[2021-06-23 06:24] LABS: ANION GAP 11.2 mEq/L (7-13); CHLORIDE,CL 113 mmol/L (98-107); SODIUM,NA 145 mmol/L (136-145)
--- NOTE | 2021-06-23 07:38 | PCM.PN ---
- General Info Date of Service: 06/23/21 Admission Dx/Problem (Free Text): Admission Diagnosis/Problem Admission Diagnosis/Problem Cellulitis of both feet Subjective Update: Patient has had multiple bouts of diarrhea yesterday. His last episode was last night but denies being watery in consistency but rather loose. His night nurse caught him with an empty bottle of hand sanitizing alcohol in his room (suspicious of ingesting it). Per night nurse, he threatened to leave AMA unless he speaks with the physician. Apparently he did not like the IDT morning rounds and would only prefer perhaps 1-2 staff. I met up with him and asked him what was bothering him. He did not specifically provide any details but expressed intentions of leaving AMA. Besides the diarrhea he has not had any acute issues or any other concerns. His hemoglobin is now slightly up at 8.9 g with much improved calcium and magnesium levels. His vitals overnight remain fairly stable. He does look much better with most skin cells removed off of his face and around his neck area. To note, C. difficile studies were ordered last night and I informed the nurse that if negative, we will start him on as needed Imodium. Functional Status: Reports: Pain Controlled, Tolerating Diet, Ambulating, Urinating - Review of Systems General: Denies: Fever, Weakness, Fatigue, Malaise, Chills HEENT: Reports: No Symptoms Pulmonary: Denies: Shortness of Breath, Cough Cardiovascular: Denies: Chest Pain Gastrointestinal: Reports: Diarrhea, Flatus. Denies: Abdominal Pain, Constipation, Nausea, Vomiting Genitourinary: Denies: Frequency, Urgency Musculoskeletal: Denies: Neck Pain, Back Pain, Joint Pain Skin: Denies: Cyanosis, Jaundice, Pallor, Diaphoresis, Dryness, Pruritis Neurological: Denies: Dizziness, Headache, Numbness, Pre-Existing Deficit, Seizure, Syncope, Tremors, Trouble Speaking, Difficulty Walking, Weakness, C hange in Speech, Gait Disturbance Psychiatric: Denies: Depression, Anxiety, Agitation - Patient Data Vitals - Most Recent: Last Vital Signs Temp 36.8 C 06/23/21 00:00 Pulse 100 06/23/21 00:00 Resp 18 06/23/21 00:00 BP 109/62 06/23/21 00:00 Pulse Ox 97 06/23/21 00:00 Weight - Most Recent: 76.657 kg I&O - Last 24 Hours: Intake & Output 06/22/21 06/23/21 06/23/21 22:59 06:59 14:59 Intake Total 250 1450 Balance 250 1450 Lab Results Last 24 Hours: Laboratory Results - last 24 hr 06/18/21 06/22/21 06/23/21 Range/Units 17:20 06:27 05:30 WBC 8.7 (5.0-10.0) 10^3/uL RBC 2.84 L (4.6-6.2) 10^6/uL Hgb 8.9 L (14.0-18.0) g/dL Hct 27.9 L (40.0-54.0) % MCV 98.2 (80-100) fL MCH 31.3 (27.0-34.0) pg MCHC 31.9 L (33.0-35.0) g/dL Plt Count 395 (150-450) 10^3/uL Neut % (Auto) 34.0 L (42.2-75.2) % Lymph % (Auto) 14.4 L (20.5-50.1) % Titus % (Auto) 7.0 (2-8) % Eos % (Auto) 44.3 H (1.0-3.0) % Baso % (Auto) 0.3 (0.0-1.0) % Neutrophils % (Manual) 41 L (42-75) % Lymphocytes % (Manual) 20 (20-50) % Monocytes % (Manual) 7 (2-8) % Eosinophils % (Manual) 31 H (1-3) % Basophils % (Manual) 1 Hypochromasia 2+ moderate Sodium (136-145) mmol/L Potassium (3.5-5.1) mmol/L Chloride (98-107) mmol/L Carbon Dioxide (21-32) mmol/L Anion Gap (7-13) mEq/L BUN (7-18) mg/dL Creatinine (0.70-1.30) mg/dL Est Cr Clr Drug Dosing mL/min Estimated GFR (MDRD) Glucose (70-99) mg/dL Calcium (8.5-10.1) mg/dL Magnesium (1.8-2.4) mg/dL C-Reactive Protein (0.0-0.9) mg/dL CCP IgG/IgA Ab 5 (0-19) units 06/23/21 Range/Units 05:30 WBC (5.0-10.0) 10^3/uL RBC (4.6-6.2) 10^6/uL Hgb (14.0-18.0) g/dL Hct (40.0-54.0) % MCV (80-100) fL MCH (27.0-34.0) pg MCHC (33.0-35.0) g/dL Plt Count (150-450) 10^3/uL Neut % (Auto) (42.2-75.2) % Lymph % (Auto) (20.5-50.1) % Titus % (Auto) (2-8) % Eos % (Auto) (1.0-3.0) % Baso % (Auto) (0.0-1.0) % Neutrophils % (Manual) (42-75) % Lymphocytes % (Manual) (20-50) % Monocytes % (Manual) (2-8) % Eosinophils % (Manual) (1-3) % Basophils % (Manual) Hypochromasia Sodium 145 (136-145) mmol/L Potassium 4.2 (3.5-5.1) mmol/L Chloride 113 H (98-107) mmol/L Carbon Dioxide 25 (21-32) mmol/L Anion Gap 11.2 (7-13) mEq/L BUN 12 (7-18) mg/dL Creatinine 0.67 L (0.70-1.30) mg/dL Est Cr Clr Drug Dosing 134.83 mL/min Estimated GFR (MDRD) > 60 Glucose 85 (70-99) mg/dL Calcium 7.1 L (8.5-10.1) mg/dL Magnesium 1.8 (1.8-2.4) mg/dL C-Reactive Protein 8.7 H (0.0-0.9) mg/dL CCP IgG/IgA Ab (0-19) units Sammy Results Last 24 Hours: Microbiology 06/18/21 05:32 Aerobic Blood Culture - Final Blood - Venous - Iv Start NO GROWTH AFTER 5 DAYS Anaerobic Blood Culture - Final NO GROWTH AFTER 5 DAYS 06/18/21 05:37 Aerobic Blood Culture - Final Blood - Arm, Right Staphylococcus Aureus Anaerobic Blood Culture - Final NO GROWTH AFTER 5 DAYS Med Orders - Current: Current Medications Acetaminophen (Acetaminophen 325 Mg Tab) 650 mg PO Q4H PRN PRN Reason: Pain (Mild 1-3)/fever Last Admin: 06/22/21 17:28 Dose: 650 mg Documented by: Ascorbic Acid (Ascorbic Acid 500 Mg Tab) 500 mg PO BID [facility] Last Admin: 06/22/21 20:08 Dose: 500 mg Documented by: Calcium Carbonate (Calcium Carbonate/Vitamin D3 1250 Mg-5 Mcg Tab) 1 tab PO DAILY [facility] Last Admin: 06/22/21 09:16 Dose: 1 tab Documented by: Chlordiazepoxide HCl (Chlordiazepoxide 25 Mg Cap) 50 mg PO Q8H PRN PRN Reason: Withdrawal Symptoms Last Admin: 06/20/21 10:14 Dose: 50 mg Documented by: Emollient Ointment (Isopropyl Myristate/Mineral Oil/Water Lotion 240 Ml Bottle) 0 ml TOP BID [facility] Last Admin: 06/22/21 22:55 Dose: 1 applic Documented by: Enoxaparin Sodium (Enoxaparin 40 Mg/0.4 Ml Syringe) 40 mg SUBCUT DAILY [facility] Last Admin: 06/22/21 09:15 Dose: 40 mg Documented by: Famotidine (Famotidine 20 Mg Tab) 20 mg PO BID [facility] Last Admin: 06/22/21 20:08 Dose: 20 mg Documented by: Ferrous Sulfate (Ferrous Sulfate 325 Mg Tab) 325 mg PO BIDMEALS [facility] Last Admin: 06/22/21 17:28 Dose: 325 mg Documented by: Hydrocortisone (Hydrocortisone 1% Crm 30 Gm Tube) 0 gm TOP BID [facility] Last Admin: 06/22/21 22:57 Dose: 1 applic Documented by: Hydroxyzine HCl (Hydroxyzine Hcl 25 Mg Tab) 25 mg PO Q12HR PRN PRN Reason: itching Last Admin: 06/22/21 12:14 Dose: 25 mg Documented by: Ibuprofen (Ibuprofen 400 Mg Tab) 400 mg PO Q6H PRN PRN Reason: Pain (mild 1-3) Last Admin: 06/23/21 04:50 Dose: 400 mg Documented by: Ketorolac Tromethamine (Ketorolac 30 Mg/Ml Sdv) 30 mg IM Q6H PRN PRN Reason: Pain (moderate 4-6) Levofloxacin (Levofloxacin 500 Mg Tab) 750 mg PO DAILY@1100 [facility] Last Admin: 06/22/21 11:26 Dose: 750 mg Documented by: Lorazepam (Lorazepam 2 Mg/Ml Sdv) 1 mg IVPUSH Q6H PRN PRN Reason: Anxiety Last Admin: 06/19/21 05:11 Dose: 1 mg Documented by: Multivitamins/Minerals/Vitamin C (Multivitamin Tab) 1 tab PO DAILY [facility] Last Admin: 06/22/21 09:16 Dose: 1 tab Documented by: Hydrophilic Ointment [Aquaphilic Ointment] 454 Gm Oint Non Formulary Item 0 dose TOP ASDIRECTED PRN PRN Reason: dry skin Last Admin: 06/22/21 09:17 Dose: 1 dose Documented by: Ondansetron HCl (Ondansetron 4 Mg Tab.Dis) 4 mg PO Q6H PRN PRN Reason: nausea, able to take PO Temazepam (Temazepam 15 Mg Cap) 15 mg PO BEDTIME PRN PRN Reason: Sleep Last Admin: 06/18/21 20:57 Dose: 15 mg Documented by: Thiamine HCl (Thiamine 100 Mg Tab) 100 mg PO DAILY [facility] Last Admin: 06/22/21 09:16 Dose: 100 mg Documented by: Discontinued Medications Emollient Ointment (Isopropyl Myristate/Mineral Oil/Water Lotion 240 Ml Bottle) 0 ml TOP BID PRN PRN Reason: Dry Skin Last Admin: 06/19/21 17:59 Dose: 1 applic Documented by: Famotidine (Famotidine 20 Mg/2 Ml Sdv) 20 mg IVPUSH ONETIME ONE Stop: 06/21/21 07:15 Last Admin: 06/21/21 08:53 Dose: 20 mg Documented by: Ferrous Sulfate (Ferrous Sulfate 325 Mg Tab) 325 mg PO Q48H [facility] Last Admin: 06/20/21 16:19 Dose: 325 mg Documented by: Ferrous Sulfate (Ferrous Sulfate 325 Mg Tab) 325 mg PO BID [facility] Last Admin: 06/22/21 09:17 Dose: 325 mg Documented by: Haloperidol Lactate (Haloperidol Lactate 2 Mg/Ml Oral Soln 15 Ml Bottle) 2 mg PO Q12H PRN PRN Reason: widthdrawal Vancomycin HCl 1,250 mg/ (Sodium Chloride) 250 mls @ 166.667 mls/hr IV ONETIME ONE Stop: 06/18/21 07:48 Last Infusion: 06/18/21 08:48 Dose: Infused Documented by: Potassium Chloride 20 meq/ (Premix) 100 mls @ 50 mls/hr IV ONETIME ONE Stop: 06/18/21 08:17 Last Infusion: 06/18/21 08:48 Dose: Infused Documented by: Multivitamins/Minerals 10 ml/Folic Acid 1 mg/ Thiamine HCl 100 mg/ Lactated Ringer's 1,011.2 mls @ 999 mls/hr IV ONETIME ONE Stop: 06/18/21 07:20 Last Infusion: 06/18/21 07:42 Dose: 999 mls/hr Documented by: Sterile Water (Sterile Water For Injection) Confirm Administered Dose 40 mls @ as directed .ROUTE .STK-MED ONE Stop: 06/18/21 06:37 Last Admin: 06/18/21 06:46 Dose: 30 mls/hr Documented by: Vancomycin HCl 1.25 gm/ Sodium (Chloride) 250 mls @ 167 mls/hr IV ONETIME ONE Stop: 06/18/21 19:59 Last Admin: 06/18/21 18:01 Dose: 167 mls/hr Documented by: Dextrose/Sodium Chloride (Dextrose 5%-1/2 Ns) 1,000 mls @ 125 mls/hr IV ASDIRECTED [facility] Last Infusion: 06/19/21 07:00 Dose: 75 mls/hr Documented by: Ceftriaxone Sodium 2 gm/ (Sodium Chloride) 100 mls @ 200 mls/hr IV Q24H [facility] Last Admin: 06/21/21 16:14 Dose: 200 mls/hr Documented by: Magnesium Sulfate 2 gm/ Premix 50 mls @ 25 mls/hr IV ONETIME ONE Stop: 06/18/21 18:51 Last Admin: 06/18/21 18:01 Dose: 25 mls/hr Documented by: Dextrose/Sodium Chloride (Dextrose 5%-1/2 Ns) 1,000 mls @ 75 mls/hr IV ASDIRECTED [facility] Last Admin: 06/19/21 13:38 Dose: 75 mls/hr Documented by: Vancomycin HCl 1.25 gm/ Sodium (Chloride) 250 mls @ 166.667 mls/hr IV Q8HR [facility] Last Admin: 06/20/21 15:36 Dose: Not Given Documented by: Vancomycin HCl 1 gm/ Sodium (Chloride) 250 mls @ 166.667 mls/hr IV Q8HR YVAN Last Admin: 06/22/21 06:05 Dose: 166.667 mls/hr Documented by: Magnesium Sulfate 2 gm/ Premix 50 mls @ 25 mls/hr IV ONETIME ONE Stop: 06/21/21 09:11 Last Infusion: 06/21/21 10:38 Dose: 25 mls/hr Documented by: Magnesium Sulfate 2 gm/ Premix 50 mls @ 25 mls/hr IV ONETIME ONE Stop: 06/22/21 09:09 Last Admin: 06/22/21 08:11 Dose: 25 mls/hr Documented by: Lorazepam (Lorazepam 2 Mg/Ml Sdv) 2 mg IVPUSH ONETIME ONE Stop: 06/18/21 15:20 Last Admin: 06/18/21 15:33 Dose: 2 mg Documented by: Vancomycin HCl (Pharmacy To Dose - Vancomycin) 0 dose .XX ASDIRECTED YVAN - Exam Quality Assessment: DVT Prophylaxis, Skin Breakdown. No: Supplemental Oxygen, Urine Catheter Urinary Catheter Total Time: 3Days 23Hours General: Alert, Oriented, Cooperative, No Acute Distress HEENT: Pupils Equal, Pupils Reactive, EOMI, Mucous Membr. Moist/[place] Neck: Supple Lungs: Clear to Auscultation, Normal Respiratory Effort Cardiovascular: Regular Rate, Regular Rhythm GI/Abdominal Exam: Normal Bowel Sounds, Soft, Non-Tender, No Organomegaly, No Distention, No Abnormal Bruit (Male) Exam: Deferred Back Exam: Normal Inspection, Decreased Range of Motion Extremities: Normal Range of Motion, Non-Tender, Normal Capillary Refill. No: Leg Pain, Increased Warmth, Redness Peripheral Pulses: 2+: Dorsalis Pedis (L), Dorsalis Pedis (R) Skin: Warm, Dry, Other (Much improved diffuse skin desquamation) Neurological: No New Focal Deficit Psy/Mental Status: Alert, Normal Affect, Normal Mood. No: Suicidal Ideation, Homicidal Ideation, Hallucinations, Withdrawal Symptoms - Patient Data Lab Results Last 24 hrs: Laboratory Results - last 24 hr 06/18/21 06/22/21 06/23/21 Range/Units 17:20 06:27 05:30 WBC 8.7 (5.0-10.0) 10^3/uL RBC 2.84 L (4.6-6.2) 10^6/uL Hgb 8.9 L (14.0-18.0) g/dL Hct 27.9 L (40.0-54.0) % MCV 98.2 (80-100) fL MCH 31.3 (27.0-34.0) pg MCHC 31.9 L (33.0-35.0) g/dL Plt Count 395 (150-450) 10^3/uL Neut % (Auto) 34.0 L (42.2-75.2) % Lymph % (Auto) 14.4 L (20.5-50.1) % Titus % (Auto) 7.0 (2-8) % Eos % (Auto) 44.3 H (1.0-3.0) % Baso % (Auto) 0.3 (0.0-1.0) % Neutrophils % (Manual) 41 L (42-75) % Lymphocytes % (Manual) 20 (20-50) % Monocytes % (Manual) 7 (2-8) % Eosinophils % (Manual) 31 H (1-3) % Basophils % (Manual) 1 Hypochromasia 2+ moderate Sodium (136-145) mmol/L Potassium (3.5-5.1) mmol/L Chloride (98-107) mmol/L Carbon Dioxide (21-32) mmol/L Anion Gap (7-13) mEq/L BUN (7-18) mg/dL Creatinine (0.70-1.30) mg/dL Est Cr Clr Drug Dosing mL/min Estimated GFR (MDRD) Glucose (70-99) mg/dL Calcium (8.5-10.1) mg/dL Magnesium (1.8-2.4) mg/dL C-Reactive Protein (0.0-0.9) mg/dL CCP IgG/IgA Ab 5 (0-19) units 06/23/21 Range/Units 05:30 WBC (5.0-10.0) 10^3/uL RBC (4.6-6.2) 10^6/uL Hgb (14.0-18.0) g/dL Hct (40.0-54.0) % MCV (80-100) fL MCH (27.0-34.0) pg MCHC (33.0-35.0) g/dL Plt Count (150-450) 10^3/uL Neut % (Auto) (42.2-75.2) % Lymph % (Auto) (20.5-50.1) % Titus % (Auto) (2-8) % Eos % (Auto) (1.0-3.0) % Baso % (Auto) (0.0-1.0) % Neutrophils % (Manual) (42-75) % Lymphocytes % (Manual) (20-50) % Monocytes % (Manual) (2-8) % Eosinophils % (Manual) (1-3) % Basophils % (Manual) Hypochromasia Sodium 145 (136-145) mmol/L Potassium 4.2 (3.5-5.1) mmol/L Chloride 113 H (98-107) mmol/L Carbon Dioxide 25 (21-32) mmol/L Anion Gap 11.2 (7-13) mEq/L BUN 12 (7-18) mg/dL Creatinine 0.67 L (0.70-1.30) mg/dL Est Cr Clr Drug Dosing 134.83 mL/min Estimated GFR (MDRD) > 60 Glucose 85 (70-99) mg/dL Calcium 7.1 L (8.5-10.1) mg/dL Magnesium 1.8 (1.8-2.4) mg/dL C-Reactive Protein 8.7 H (0.0-0.9) mg/dL CCP IgG/IgA Ab (0-19) units Result Diagrams: 06/23/21 05:30 06/23/21 05:30 Sammy Results Last 24 hrs: Microbiology 06/18/21 05:32 Aerobic Blood Culture - Final Blood - Venous - Iv Start NO GROWTH AFTER 5 DAYS Anaerobic Blood Culture - Final NO GROWTH AFTER 5 DAYS 06/18/21 05:37 Aerobic Blood Culture - Final Blood - Arm, Right Staphylococcus Aureus Anaerobic Blood Culture - Final NO GROWTH AFTER 5 DAYS Sepsis Event Note - Evaluation Sepsis Screening Result: No Definite Risk - Focused Exam Vital Signs: Vital Signs Temp Pulse Resp BP BP Pulse Ox 06/23/21 00:00 36.8 C 100 18 109/62 97 06/22/21 20:00 36.3 C 92 18 102/58 L 98 - Problem List Review Problem List Initiated/Reviewed/Updated: Yes - My Orders Last 24 Hours: My Active Orders 06/22/21 09:00 Ascorbic Acid [Vitamin C] 500 mg PO BID 06/22/21 09:01 Blood Culture x2 Reflex Set [OM.PC] Stat 06/22/21 09:35 CULTURE BLOOD [BC] Stat 06/22/21 09:43 CULTURE BLOOD [BC] Stat 06/22/21 11:00 levoFLOXacin [Levaquin] 750 mg PO DAILY@1100 06/22/21 18:00 Ferrous Sulfate 325 mg PO BIDMEALS 06/22/21 19:47 CLOSTRIDIUM DIFFICILE TOX RFLX [MREF] Stat 06/22/21 19:50 Isolation [COMM] Stat 06/22/21 21:00 Hydrocortisone [Hydrocortisone 1% Crm] 0 gm TOP BID 06/24/21 06:00 BMP [BASIC METABOLIC PANEL,BMP] [CHEM] DAILY CBC WITH AUTO DIFF [HEME] DAILY CRP [C-REACTIVE PROTEIN] [CHEM] DAILY MAGNESIUM [CHEM] DAILY 06/25/21 06:00 BMP [BASIC METABOLIC PANEL,BMP] [CHEM] DAILY CBC WITH AUTO DIFF [HEME] DAILY MAGNESIUM [CHEM] DAILY 06/26/21 06:00 BMP [BASIC METABOLIC PANEL,BMP] [CHEM] DAILY CBC WITH AUTO DIFF [HEME] DAILY MAGNESIUM [CHEM] DAILY 06/27/21 06:00 BMP [BASIC METABOLIC PANEL,BMP] [CHEM] DAILY CBC WITH AUTO DIFF [HEME] DAILY MAGNESIUM [CHEM] DAILY - Assessment Assessment:: This is a 46-year-old male past medical history of impaired vision, hypertension, history of recurrent pneumonia, liver cirrhosis, history of bradycardia and hypertension, history of seizure, chronic alcoholism, medical noncompliance with treatment, history of eczema/psoriasis on Humira, and homelessness who was admitted for lower extremity cellulitis and inability to care for himself. Assessment: Acute: Cellulitis with maggot infestation on bilateral lower feet; wound culture so far shows suspect staph aureus with moderate growth gram-negative los Bacteremia secondary to staph aureus Questionable PVD with good pedal pulses on Doppler check Malnutrition with low protein state Hypoalbuminemia with albumin of less than 0.6 Anemia of chronic disease secondary to poor nutritional intake with current hemoglobin of 8.9 g Mild hyperchloremia with chloride of 113 Persistent mild hypocalcemia with non-corrected calcium of 7.1 Elevated vitamin B12 of 1649 Elevated alkaline phosphatase level of 122 Methamphetamine abuse positive on UDS Diffuse itching due to skin desquamation unlikely due to staphylococcal skin scalded syndrome Questionable RA with negative anti-CCP antibody, IgG/IgA Probable alcohol craving; nurse found at least 4 bottles of hand sanitizing alcohol in his room but patient denied ingesting it Resolved: Status post altered mental status Chronic alcoholism/alcohol withdrawal; low CIWA score; now of CIWA protocol Alcohol intoxication with a documented blood alcohol level of 400 mg/dL Dehydration Status post leukocytosis with WBC now back to normal range Hypokalemia, resolved with current potassium of 4.2 Persistent hypomagnesemia with magnesium of 1.8 Chronic: Impaired vision Recurrent pneumonia Liver cirrhosis Chronic alcoholism Medical noncompliance of treatment Eczema/psoriasis on Humira; last dose was back in January Homelessness/Inability to care for himself - Plan Plan:: Plan: Antibiotic treatment day #5 now on Levaquin 750 mg p.o. daily for treatment of bacteremia/cellulitis Continue to monitor inflammatory markers As needed electrolytes replacement protocol Check for ionized calcium and repeat magnesium level; ionized calcium level is a send out Routine a.m. labs Continue with whirl pool bath with manual desquamation (exfoliating scrub to remove all skin cells) Application of topical emollient from head to toe to prevent dryness Nutritional medicine consult for malnutrition Repeat blood cultures yesterday 1% hydrocortisone as needed to apply areas with excoriation and redness twice a day per patient request Continue wound care Patient may leave AMA; he expressed intentions and informed nurse about it; he was warned and cautioned that he is not medically stable but I will not hold him hostage or prevent him from leaving if he is choosing to do so. Patient states that he was told by some doctors he does not have much time to live due to his bad veins and therefore there is no point of me trying to cure him. He would rather leave and do whatever he wants to do for the remaining days or months of his life DVT/GI prophylaxis: Lovenox 40 subcu daily and will add H2 dennis twice daily Anticipated date of discharge: Greater than 96 hours due to recent diagnosis of bacteremia Anticipate discharge: next week for inpatient chemical rehab once medically cleared CODE STATUS is full 0944: Patient left A
[2021-06-23] MEDS: Isopropyl Myristate/Mineral Oil/Water Lotion 240 ML Bottle TOP SCH (09:20)
[2021-06-23] MEDS: Ferrous Sulfate 325 MG Tab PO SCH (09:20)
[2021-06-23] MEDS: Enoxaparin 40 MG/0.4 ML Syringe SUBCUT SCH (09:20)
[2021-06-23] MEDS: Hydrocortisone 1% Crm 30 GM Tube TOP SCH (09:20)
[2021-06-23] MEDS: Calcium Carbonate/Vitamin D3 1250 MG-5 MCG Tab PO SCH (09:20)
[2021-06-23] MEDS: Famotidine 20 MG Tab PO SCH (09:21)
[2021-06-23] MEDS: Multivitamin Tab PO SCH (09:21)
[2021-06-23] MEDS: Thiamine 100 MG Tab PO SCH (09:21)
[2021-06-23] MEDS: Ascorbic Acid 500 MG Tab PO SCH (09:21)
--- NOTE | 2021-06-23 09:54 | PCM.DCSUM1 ---
Discharge Summary - Hospital Course Brief History: This is a 46-year-old male past medical history of impaired vision, hypertension, history of recurrent pneumonia, liver cirrhosis, history of bradycardia and hypertension, history of seizure, chronic alcoholism, medical noncompliance with treatment, history of eczema/psoriasis on Humira, and homelessness who was admitted for lower extremity cellulitis and inability to care for himself. Diagnosis: Stroke: No - Discharge Data Discharge Date: 06/23/21 Discharge Disposition: Against Medical Advice 07 Condition: Good - Referral to Home Health Primary Care Physician: PCP None - Patient Summary/Data Operative Procedure(s) Performed: None Complications: None Consults: Consultations 06/18/21 15:52 Consult to Case Management/[employer] [CONS] Routine Consult to Box Hinge And Lock Attacher [CONS] Routine OT Evaluation and Treatment [CONS] Routine PT Evaluation and Treatment [CONS] Routine 06/20/21 13:16 Consult to Dietary [Consult to Box Hinge And Lock Attacher] [CONS] Routine Consult to Wound Care Services [CONS] Routine Labs Pending at D/C: None Recommended Follow-up Testing/Procedures: with PCP but he left AMA Planned Operative Procedure(s) after DC: None Hospital Course: Patient was admitted for treatment primarily of of lower extremity cellulitis and alcohol withdrawal. He responded to initial treatment with intravenous a ntibiotics as well as CIWA protocol. However he was diagnosed with bacteremia, awaiting repeat blood cultures to make sure he was no longer bacteremic. He had diffuse skin desquamation due to underlying skin disorder but he improved with aggressive bathing along with manual removal of his old skin cells. His electrolytes have been on and off but we were routinely replacing it. He has improved significantly since admission but not ready to go. Last night he was caught with a few bottles of alcohol hand reporting consultant. We felt he was craving for alcohol and likely ingesting it. However he adamantly denied it. Earlier this morning he expressed intentions of leaving [facility] however I informed him that he was not cleared medically to go. Unfortunately, he decided to leave the facility on his own accord knowing the consequences that he might get worse or after leaving the campus. - Discharge Plan *PRESCRIPTION DRUG MONITORING PROGRAM REVIEWED*: No *COPY OF PRESCRIPTION DRUG MONITORING REPORT IN PATIENT RASHMI: No Home Medications: Home Meds Adalimumab [Humira Pen] 40 mg SQ .[id number] 04/14/21 [History] Calcium Citrate/Vitamin D3 [Calcium Citrate - Vit D Caplet] 1 tab PO DAILY 06/20/21 [History] Ferrous Sulfate 325 mg PO Q48H 06/20/21 [History] Hydrophilic Ointment [Aquaphilic Ointment] 1 dose TOP ASDIRECTED PRN 06/20/21 [History] Ketoconazole 10 ml TOP .TWICEWEEKLY 06/20/21 [History] Multivitamin [Multivitamins] 1 tab PO DAILY 06/20/21 [History] Thiamine [Vitamin B-1] 100 mg PO DAILY 06/20/21 [History] Triamcinolone Acetonide [Kenalog 0.1% Crm] 1 dose TOP BID 06/20/21 [History] diphenhydrAMINE [Benadryl] 25 mg PO BID PRN 06/20/21 [History] Referrals: PCP,None [Primary Care Provider] - - Discharge Summary/Plan Comment DC Time >30 min.: No (he left AMA) Total # of Minutes for Discharge Time: < 5 mins Discharge Summary/Plan Comment: He left AMA - General Info Date of Service: 06/23/21 Admission Dx/Problem (Free Text: Admission Diagnosis/Problem Admission Diagnosis/Problem Cellulitis of both feet Subjective Update: Patient has had multiple bouts of diarrhea yesterday. His last episode was last night but denies being watery in consistency but rather loose. His nurse last night caught him with an empty bottle of hand sanitizing alcohol in his room (suspicious of ingesting it). Per night nurse, he threatened to leave AMA unless he speaks with the physician. Apparently he did not like the IDT morning rounds and would only prefer perhaps 1-2 staff. I met up with him and asked him what was bothering him. He did not specifically provide any details but expressed some intentions of leaving AMA. Besides the diarrhea he has not had any acute issues or any other concerns. His hemoglobin is now slightly up at 8.9 g with much improved calcium and magnesium levels. His vitals overnight remain fairly stable. He does look much better with most skin cells removed off of his face and around his neck area. To note, C. difficile studies were ordered last night and I informed the nurse that if negative, we will start him on as needed Imodium. - Review of Systems Systems Review Comment: Patient left AMA - Patient Data Vitals - Most Recent: Last Vital Signs Temp 36.8 C 06/23/21 00:00 Pulse 100 06/23/21 00:00 Resp 18 06/23/21 00:00 BP 109/62 06/23/21 00:00 Pulse Ox 97 06/23/21 00:00 Weight - Most Recent: 76.657 kg I&O - Last 24 hours: Intake & Output 06/22/21 06/23/21 06/23/21 22:59 06:59 14:59 Intake Total 250 1450 Balance 250 1450 Lab Results - Last 24 hrs: Laboratory Results - last 24 hr 06/18/21 06/23/21 06/23/21 Range/Units 17:20 05:30 05:30 WBC 8.7 (5.0-10.0) 10^3/uL RBC 2.84 L (4.6-6.2) 10^6/uL Hgb 8.9 L (14.0-18.0) g/dL Hct 27.9 L (40.0-54.0) % MCV 98.2 (80-100) fL MCH 31.3 (27.0-34.0) pg MCHC 31.9 L (33.0-35.0) g/dL Plt Count 395 (150-450) 10^3/uL Neut % (Auto) 34.0 L (42.2-75.2) % Lymph % (Auto) 14.4 L (20.5-50.1) % [place] % (Auto) 7.0 (2-8) % Eos % (Auto) 44.3 H (1.0-3.0) % Baso % (Auto) 0.3 (0.0-1.0) % Sodium 145 (136-145) mmol/L Potassium 4.2 (3.5-5.1) mmol/L Chloride 113 H (98-107) mmol/L Carbon Dioxide 25 (21-32) mmol/L Anion Gap 11.2 (7-13) mEq/L BUN 12 (7-18) mg/dL Creatinine 0.67 L (0.70-1.30) mg/dL Est Cr Clr Drug Dosing 134.83 mL/min Estimated GFR (MDRD) > 60 Glucose 85 (70-99) mg/dL Calcium 7.1 L (8.5-10.1) mg/dL Magnesium 1.8 (1.8-2.4) mg/dL C-Reactive Protein 8.7 H (0.0-0.9) mg/dL CCP IgG/IgA Ab 5 (0-19) units USMAN Results - Last 24 hrs: Microbiology 06/18/21 05:32 Aerobic Blood Culture - Final Blood - Venous - Iv Start NO GROWTH AFTER 5 DAYS Anaerobic Blood Culture - Final NO GROWTH AFTER 5 DAYS 06/18/21 05:37 Aerobic Blood Culture - Final Blood - Arm, Right Staphylococcus Aureus Anaerobic Blood Culture - Final NO GROWTH AFTER 5 DAYS Med Orders - Current: Current Medications Acetaminophen (Acetaminophen 325 Mg Tab) 650 mg PO Q4H PRN PRN Reason: Pain (Mild 1-3)/fever Last Admin: 06/22/21 17:28 Dose: 650 mg Documented by: Ascorbic Acid (Ascorbic Acid 500 Mg Tab) 500 mg PO BID [facility] Last Admin: 06/23/21 09:21 Dose: Not Given Documented by: Calcium Carbonate (Calcium Carbonate/Vitamin D3 1250 Mg-5 Mcg Tab) 1 tab PO DAILY [facility] Last Admin: 06/23/21 09:20 Dose: Not Given Documented by: Chlordiazepoxide HCl (Chlordiazepoxide 25 Mg Cap) 50 mg PO Q8H PRN PRN Reason: Withdrawal Symptoms Last Admin: 06/20/21 10:14 Dose: 50 mg Documented by: Emollient Ointment (Isopropyl Myristate/Mineral Oil/Water Lotion 240 Ml Bottle) 0 ml TOP BID [facility] Last Admin: 06/23/21 09:20 Dose: Not Given Documented by: Enoxaparin Sodium (Enoxaparin 40 Mg/0.4 Ml Syringe) 40 mg SUBCUT DAILY [facility] Last Admin: 06/23/21 09:20 Dose: Not Given Documented by: Famotidine (Famotidine 20 Mg Tab) 20 mg PO BID [facility] Last Admin: 06/23/21 09:21 Dose: Not Given Documented by: Ferrous Sulfate (Ferrous Sulfate 325 Mg Tab) 325 mg PO BIDMEALS [facility] Last Admin: 06/23/21 09:20 Dose: Not Given Documented by: Hydrocortisone (Hydrocortisone 1% Crm 30 Gm Tube) 0 gm TOP BID [facility] Last Admin: 06/23/21 09:20 Dose: Not Given Documented by: Hydroxyzine HCl (Hydroxyzine Hcl 25 Mg Tab) 25 mg PO Q12HR PRN PRN Reason: itching Last Admin: 06/22/21 12:14 Dose: 25 mg Documented by: Ibuprofen (Ibuprofen 400 Mg Tab) 400 mg PO Q6H PRN PRN Reason: Pain (mild 1-3) Last Admin: 06/23/21 04:50 Dose: 400 mg Documented by: Ketorolac Tromethamine (Ketorolac 30 Mg/Ml Sdv) 30 mg IM Q6H PRN PRN Reason: Pain (moderate 4-6) Levofloxacin (Levofloxacin 500 Mg Tab) 750 mg PO DAILY@1100 [facility] Last Admin: 06/22/21 11:26 Dose: 750 mg Documented by: Lorazepam (Lorazepam 2 Mg/Ml Sdv) 1 mg IVPUSH Q6H PRN PRN Reason: Anxiety Last Admin: 06/19/21 05:11 Dose: 1 mg Documented by: Multivitamins/Minerals/Vitamin C (Multivitamin Tab) 1 tab PO DAILY [facility] Last Admin: 06/23/21 09:21 Dose: Not Given Documented by: Hydrophilic Ointment [Aquaphilic Ointment] 454 Gm Oint Non Formulary Item 0 dose TOP ASDIRECTED PRN PRN Reason: dry skin Last Admin: 06/22/21 09:17 Dose: 1 dose Documented by: Ondansetron HCl (Ondansetron 4 Mg Tab.Dis) 4 mg PO Q6H PRN PRN Reason: nausea, able to take PO Temazepam (Temazepam 15 Mg Cap) 15 mg PO BEDTIME PRN PRN Reason: Sleep Last Admin: 06/18/21 20:57 Dose: 15 mg Documented by: Thiamine HCl (Thiamine 100 Mg Tab) 100 mg PO DAILY [facility] Last Admin: 06/23/21 09:21 Dose: Not Given Documented by: Discontinued Medications Emollient Ointment (Isopropyl Myristate/Mineral Oil/Water Lotion 240 Ml Bottle) 0 ml TOP BID PRN PRN Reason: Dry Skin Last Admin: 06/19/21 17:59 Dose: 1 applic Documented by: Famotidine (Famotidine 20 Mg/2 Ml Sdv) 20 mg IVPUSH ONETIME ONE Stop: 06/21/21 07:15 Last Admin: 06/21/21 08:53 Dose: 20 mg Documented by: Ferrous Sulfate (Ferrous Sulfate 325 Mg Tab) 325 mg PO Q48H [facility] Last Admin: 06/20/21 16:19 Dose: 325 mg Documented by: Ferrous Sulfate (Ferrous Sulfate 325 Mg Tab) 325 mg PO BID [facility] Last Admin: 06/22/21 09:17 Dose: 325 mg Documented by: Haloperidol Lactate (Haloperidol Lactate 2 Mg/Ml Oral Soln 15 Ml Bottle) 2 mg PO Q12H PRN PRN Reason: widthdrawal Vancomycin HCl 1,250 mg/ (Sodium Chloride) 250 mls @ 166.667 mls/hr IV ONETIME ONE Stop: 06/18/21 07:48 Last Infusion: 06/18/21 08:48 Dose: Infused Documented by: Potassium Chloride 20 meq/ (Premix) 100 mls @ 50 mls/hr IV ONETIME ONE Stop: 06/18/21 08:17 Last Infusion: 06/18/21 08:48 Dose: Infused Documented by: Multivitamins/Minerals 10 ml/Folic Acid 1 mg/ Thiamine HCl 100 mg/ Lactated Ringer's 1,011.2 mls @ 999 mls/hr IV ONETIME ONE Stop: 06/18/21 07:20 Last Infusion: 06/18/21 07:42 Dose: 999 mls/hr Documented by: Sterile Water (Sterile Water For Injection) Confirm Administered Dose 40 mls @ as directed .ROUTE .STK-MED ONE Stop: 06/18/21 06:37 Last Admin: 06/18/21 06:46 Dose: 30 mls/hr Documented by: Vancomycin HCl 1.25 gm/ Sodium (Chloride) 250 mls @ 167 mls/hr IV ONETIME ONE Stop: 06/18/21 19:59 Last Admin: 06/18/21 18:01 Dose: 167 mls/hr Documented by: Dextrose/Sodium Chloride (Dextrose 5%-1/2 Ns) 1,000 mls @ 125 mls/hr IV ASDIRECTED [facility] Last Infusion: 06/19/21 07:00 Dose: 75 mls/hr Documented by: Ceftriaxone Sodium 2 gm/ (Sodium Chloride) 100 mls @ 200 mls/hr IV Q24H [facility] Last Admin: 06/21/21 16:14 Dose: 200 mls/hr Documented by: Magnesium Sulfate 2 gm/ Premix 50 mls @ 25 mls/hr IV ONETIME ONE Stop: 06/18/21 18:51 Last Admin: 06/18/21 18:01 Dose: 25 mls/hr Documented by: Dextrose/Sodium Chloride (Dextrose 5%-1/2 Ns) 1,000 mls @ 75 mls/hr IV ASDIRECTED [facility] Last Admin: 06/19/21 13:38 Dose: 75 mls/hr Documented by: Vancomycin HCl 1.25 gm/ Sodium (Chloride) 250 mls @ 166.667 mls/hr IV Q8HR [facility] Last Admin: 06/20/21 15:36 Dose: Not Given Documented by: Vancomycin HCl 1 gm/ Sodium (Chloride) 250 mls @ 166.667 mls/hr IV Q8HR [facility] Last Admin: 06/22/21 06:05 Dose: 166.667 mls/hr Documented by: Magnesium Sulfate 2 gm/ Premix 50 mls @ 25 mls/hr IV ONETIME ONE Stop: 06/21/21 09:11 Last Infusion: 06/21/21 10:38 Dose: 25 mls/hr Documented by: Magnesium Sulfate 2 gm/ Premix 50 mls @ 25 mls/hr IV ONETIME ONE Stop: 06/22/21 09:09 Last Admin: 06/22/21 08:11 Dose: 25 mls/hr Documented by: Lorazepam (Lorazepam 2 Mg/Ml Sdv) 2 mg IVPUSH ONETIME ONE Stop: 06/18/21 15:20 Last Admin: 06/18/21 15:33 Dose: 2 mg Documented by: Vancomycin HCl (Pharmacy To Dose - Vancomycin) 0 dose .XX ASDIRECTED [facility] - Exam Physical Findings Comments:: Unable to examine. He left AMA.
== END 2021-06-23 09:13 | disposition left against medical advice (07) | DRG 872 ==
LOC: DL.ED 04:26 → DL.MS 15:30
PROVIDERS: ADMIT Pediatrics; ATTEND Internal Medicine
DX: A41.01 Sepsis due to Methicillin susceptible Staphylococcus aureus (principal); L03.115 Cellulitis of right lower limb; B87.9 Myiasis, unspecified; L30.9 Dermatitis, unspecified; F10.239 Alcohol dependence with withdrawal, unspecified; F10.130 Alcohol abuse with withdrawal, uncomplicated; L03.116 Cellulitis of left lower limb; Y90.9 Presence of alcohol in blood, level not specified; L02.611 Cutaneous abscess of right foot; E46 Unspecified protein-calorie malnutrition; Q60.0 Renal agenesis, unilateral; H54.7 Unspecified visual loss; I10 Essential (primary) hypertension; K74.69 Other cirrhosis of liver; R56.9 Unspecified convulsions; F41.9 Anxiety disorder, unspecified; Z91.048 Other nonmedicinal substance allergy status; F32.9 Major depressive disorder, single episode, unspecified; E86.0 Dehydration; D63.8 Anemia in other chronic diseases classified elsewhere; E87.6 Hypokalemia; Z20.822 Contact with and (suspected) exposure to COVID-19; F19.10 Other psychoactive substance abuse, uncomplicated; L30.8 Other specified dermatitis; E87.8 Other disorders of electrolyte and fluid balance, not elsewhere classified; E83.51 Hypocalcemia; R74.8 Abnormal levels of other serum enzymes; F15.10 Other stimulant abuse, uncomplicated; E83.42 Hypomagnesemia; T68.XXXA Hypothermia, initial encounter; Z59.0 Homelessness; Z86.19 Personal history of other infectious and parasitic diseases; Z91.19 Patient's noncompliance with other medical treatment and regimen; Z88.8 Allergy status to other drugs, medicaments and biological substances; Z88.1 Allergy status to other antibiotic agents; Z91.018 Allergy to other foods; Z79.899 Other long term (current) drug therapy; Z87.01 Personal history of pneumonia (recurrent)
CPT/HCPCS: 36415; 80048; 80053; 80202; 80305-QW; 80307; 81003; 82330; 82550; 82607; 82746; 83540; 83550; 83605; 83735; 83880; 84100; 84132; 84443; 85025; 85379; 85610; 85651; 85730; 86140; 86200; 87040; 87070; 87077; 87186; 87205; 87493; 93005; 96365; 96366; 96368; 97162-GP; 97165-GO; 99285-25; A9270-GY; J0696; J1650; J2060; J3370; J3411; J3475; J3480; J3490; J7042; J7050; J7120; U0002

== ENCOUNTER 2021-06-23 12:33 | Emergency (ER) | payer MEDICARE, MEDICAID ==
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
[2021-06-23 13:28] LABS: ACETAMINOPHEN 0 ug/mL (10-30 (Therapeutic)); ANION GAP 8.9 mEq/L (7-13); CHLORIDE,CL 115 mmol/L (98-107); SODIUM,NA 144 mmol/L (136-145)
[2021-06-23] MEDS: MVI, Adult with Vitamin K 10 ML, Folic Acid 1 MG, Thiamine 100 MG in Lactated Ringers 1... IV ONE ×4 (14:27)
[2021-06-23] MEDS: diphenhydrAMINE 25 MG Tab PO ONE (21:55)
[2021-06-23 23:07] LABS: ANION GAP 12.5 mEq/L (7-13); CHLORIDE,CL 114 mmol/L (98-107); SODIUM,NA 145 mmol/L (136-145)
[2021-06-24 01:15] LABS: ANION GAP 11.1 mEq/L (7-13); CHLORIDE,CL 109 mmol/L (98-107); SODIUM,NA 140 mmol/L (136-145)
[2021-06-24 05:14] LABS: AMPHETAMINES,URINE NEGATIVE (NEGATIVE); BARBITURATES,URINE NEGATIVE (NEGATIVE); BENZODIAZEPINE,URINE POSITIVE (NEGATIVE); MDMA (ECSTASY), URINE NEGATIVE (NEGATIVE); METHADONE,URINE NEGATIVE (NEGATIVE); METHAMPHETAMINES,URINE NEGATIVE (NEGATIVE); OPIATES,URINE NEGATIVE (NEGATIVE); OXYCODONE,URINE NEGATIVE (NEGATIVE); PHENCYCLIDINE,URINE NEGATIVE (NEGATIVE); TCA,URINE NEGATIVE (NEGATIVE)
[2021-06-24 05:22] LABS: ANION GAP 14.3 mEq/L (7-13); CHLORIDE,CL 109 mmol/L (98-107); SODIUM,NA 143 mmol/L (136-145)
[2021-06-24 09:32] LABS: ANION GAP 12.5 mEq/L (7-13); CHLORIDE,CL 109 mmol/L (98-107); SODIUM,NA 143 mmol/L (136-145)
[2021-06-24 10:23] VITALS: BP 92/50; PULSE 109
[2021-06-24] MEDS: LORazepam 1 MG Tab PO ONE (11:18)
== END 2021-06-24 12:08 ==
LOC: DL.ED 12:33
DX: T50.0X2A Poisoning by mineralocorticoids and their antagonists, intentional self-harm, initial encounter (principal); I10 Essential (primary) hypertension; Z91.018 Allergy to other foods; Z88.1 Allergy status to other antibiotic agents; Z91.048 Other nonmedicinal substance allergy status
CPT/HCPCS: 36415; 80048; 80053; 80143; 80179; 80305; 80307; 81003; 82140; 82150; 83605; 83690; 83735; 85025; 85610; 87040; 96365; 99285; A9270; J3411; J7120; J3490

== ENCOUNTER 2021-08-11 12:34 | Observation (INO) | payer MEDICARE, MEDICAID ==
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
[2021-08-11] MEDS ORDERED: MVI, Adult with Vitamin K 10 ML, Thiamine 100 MG, Folic Acid 1 MG in Lactated Ringers 1... IV ONE ×4 (12:45)
[2021-08-11] MEDS: Sodium Chloride 0.9% 10 ML Syringe FLUSH PRN (13:29)
[2021-08-11 13:43] LABS: CHLORIDE,CL 111 mmol/L (98-107); SODIUM,NA 145 mmol/L (136-145)
[2021-08-11 13:47] LABS: ACETAMINOPHEN 0 ug/mL (10-30 (Therapeutic))
[2021-08-11 14:04] LABS: PTT,PARTIAL THROMBOPLSTIN TIME 27.5 SEC (22.0-34.0)
[2021-08-11] MEDS ORDERED: LORazepam 0.5 MG Tab PO PRN (16:52)
[2021-08-11] MEDS ORDERED: Lactated Ringers 1,000 ML IV SCH (17:00)
[2021-08-11] MEDS ORDERED: REMDESIVIR 200 MG in Sodium Chloride 0.9% 250 ML IV ONE (17:01)
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
[2021-08-11] MEDS ORDERED: Iopamidol 755 Mg/ML 100 ML Bottle IVPUSH ONE (17:39)
--- NOTE | 2021-08-11 17:51 | PCM.PN ---
- General Info Date of Service: 08/11/21 Admission Dx/Problem (Free Text): Intoxication, suicide attempt, COVID-19 positive - Patient Data Vitals - Most Recent: Last Vital Signs Temp 98.2 F 08/11/21 13:07 Pulse 75 08/11/21 14:36 Resp 20 08/11/21 14:36 BP 118/85 08/11/21 14:36 Pulse Ox 99 08/11/21 14:36 Weight - Most Recent: 178 lb Lab Results Last 24 Hours: Laboratory Results - last 24 hr 08/11/21 08/11/21 08/11/21 Range/Units 13:17 13:17 13:38 WBC 6.5 (5.0-10.0) 10^3/uL RBC 4.33 L (4.6-6.2) 10^6/uL Hgb 13.0 L D (14.0-18.0) g/dL Hct 39.7 L (40.0-54.0) % MCV 91.7 D (80-100) fL MCH 30.0 (27.0-34.0) pg MCHC 32.7 L (33.0-35.0) g/dL Plt Count 462 H (150-450) 10^3/uL Neut % (Auto) 65.4 (42.2-75.2) % Lymph % (Auto) 12.5 L (20.5-50.1) % [place] % (Auto) 5.7 (2-8) % Eos % (Auto) 15.5 H (1.0-3.0) % Baso % (Auto) 0.9 (0.0-1.0) % PT (9.0-12.0) SEC INR (0.9-1.2) APTT (22.0-34.0) SEC D-Dimer, Quantitative (0-400) ng/mL Sodium 145 (136-145) mmol/L Potassium 4.0 (3.5-5.1) mmol/L Chloride 111 H (98-107) mmol/L Carbon Dioxide 26 (21-32) mmol/L Anion Gap 12.0 (7-13) mEq/L BUN 7 (7-18) mg/dL Creatinine 0.77 (0.70-1.30) mg/dL Est Cr Clr Drug Dosing TNP Estimated GFR (MDRD) > 60 BUN/Creatinine Ratio 9.1 (No establ ref range) Glucose 83 (70-99) mg/dL Calcium 7.3 L (8.5-10.1) mg/dL Magnesium 2.0 (1.8-2.4) mg/dL Total Bilirubin 0.1 L (0.2-1.0) mg/dL AST 57 H (15-37) U/L ALT 33 (16-63) U/L Alkaline Phosphatase 118 H (46-116) U/L Total Protein 5.5 L (6.4-8.2) g/dL Albumin 1.9 L (3.4-5.0) g/dL Globulin 3.6 Albumin/Globulin Ratio 0.53 Amylase 19 L (25-115) U/L Lipase 174 (73-393) U/L Salicylates 2.9 (2.8-20(Therapeutic)) mg/dL Acetaminophen 0 L (10-30 (Therapeutic)) ug/mL Ethyl Alcohol 364 (0) mg/dL SARS-CoV-2 RNA (FABI) (NEGATIVE) 08/11/21 08/11/21 08/11/21 Range/Units 13:38 13:38 14:00 WBC (5.0-10.0) 10^3/uL RBC (4.6-6.2) 10^6/uL Hgb (14.0-18.0) g/dL Hct (40.0-54.0) % MCV (80-100) fL MCH (27.0-34.0) pg MCHC (33.0-35.0) g/dL Plt Count (150-450) 10^3/uL Neut % (Auto) (42.2-75.2) % Lymph % (Auto) (20.5-50.1) % [place] % (Auto) (2-8) % Eos % (Auto) (1.0-3.0) % Baso % (Auto) (0.0-1.0) % PT 9.6 (9.0-12.0) SEC INR 1.0 (0.9-1.2) APTT 27.5 (22.0-34.0) SEC D-Dimer, Quantitative 1620 H (0-400) ng/mL Sodium (136-145) mmol/L Potassium (3.5-5.1) mmol/L Chloride (98-107) mmol/L Carbon Dioxide (21-32) mmol/L Anion Gap (7-13) mEq/L BUN (7-18) mg/dL Creatinine (0.70-1.30) mg/dL Est Cr Clr Drug Dosing Estimated GFR (MDRD) BUN/Creatinine Ratio (No establ ref range) Glucose (70-99) mg/dL Calcium (8.5-10.1) mg/dL Magnesium (1.8-2.4) mg/dL Total Bilirubin (0.2-1.0) mg/dL AST (15-37) U/L ALT (16-63) U/L Alkaline Phosphatase (46-116) U/L Total Protein (6.4-8.2) g/dL Albumin (3.4-5.0) g/dL Globulin Albumin/Globulin Ratio Amylase (25-115) U/L Lipase (73-393) U/L Salicylates (2.8-20(Therapeutic)) mg/dL Acetaminophen (10-30 (Therapeutic)) ug/mL Ethyl Alcohol (0) mg/dL SARS-CoV-2 RNA (FABI) Positive H (NEGATIVE) Med Orders - Current: Current Medications Acetaminophen (Acetaminophen 325 Mg Tab) 650 mg PO Q4H PRN PRN Reason: Pain (Mild 1-3)/fever Dexamethasone (Dexamethasone 6 Mg Tablet) 6 mg PO DAILY [facility] Stop: 08/20/21 09:01 Enoxaparin Sodium (Enoxaparin 40 Mg/0.4 Ml Syringe) 40 mg SUBCUT DAILY [facility] Folic Acid (Folic Acid 1 Mg Tab) 1 mg PO DAILY [facility]VAN Stop: 08/14/21 09:01 Lactated Ringer's (Ringers, Lactated) 1,000 mls @ 125 mls/hr IV ASDIRECTED YVAN Stop: 08/11/21 21:01 Remdesivir 200 mg/ Sodium (Chloride) 250 mls @ 250 mls/hr IV ONETIME ONE Stop: 08/11/21 18:00 Remdesivir 100 mg/ Sodium (Chloride) 100 mls @ 100 mls/hr IV Q24H YVAN Stop: 08/15/21 09:59 Lorazepam (Lorazepam 2 Mg/Ml Sdv) 0 mg IV TITRATE PRN; Protocol PRN Reason: alcohol withdrawal Lorazepam (Lorazepam 0.5 Mg Tab) 0 mg PO TITRATE PRN; Protocol PRN Reason: alcohol withdrawal Miscellaneous Information (Check Nicotine Patch) 1 ea TRDERM BEDTIME YVAN Multivitamins/Minerals/Vitamin C (Multivitamin Tab) 1 tab PO DAILY YVAN Nicotine (Nicotine 21 Mg/24 Hr Patch) 21 mg TRDERM DAILY YVAN Sodium Chloride (Sodium Chloride 0.9% 10 Ml Syringe) 10 ml FLUSH ASDIRECTED PRN PRN Reason: Keep Vein Open Last Admin: 08/11/21 13:29 Dose: 10 ml Documented by: Thiamine HCl (Thiamine 100 Mg Tab) 100 mg PO DAILY YVAN Discontinued Medications Multivitamins/Minerals 10 ml/Thiamine HCl 100 mg/ Folic Acid 1 mg/ Lactated Ringer's 1,011.2 mls @ 999 mls/hr IV .BOLUS ONE Stop: 08/11/21 13:45 Last Admin: 08/11/21 13:29 Dose: 999 mls/hr Documented by: Iopamidol (Iopamidol 755 Mg/Ml 100 Ml Bottle) 100 ml IVPUSH ONETIME ONE Stop: 08/11/21 17:40 - Patient Data Lab Results Last 24 hrs: Laboratory Results - last 24 hr 08/11/21 08/11/21 08/11/21 Range/Units 13:17 13:17 13:38 WBC 6.5 (5.0-10.0) 10^3/uL RBC 4.33 L (4.6-6.2) 10^6/uL Hgb 13.0 L D (14.0-18.0) g/dL Hct 39.7 L (40.0-54.0) % MCV 91.7 D (80-100) fL MCH 30.0 (27.0-34.0) pg MCHC 32.7 L (33.0-35.0) g/dL Plt Count 462 H (150-450) 10^3/uL Neut % (Auto) 65.4 (42.2-75.2) % Lymph % (Auto) 12.5 L (20.5-50.1) % [place] % (Auto) 5.7 (2-8) % Eos % (Auto) 15.5 H (1.0-3.0) % Baso % (Auto) 0.9 (0.0-1.0) % PT (9.0-12.0) SEC INR (0.9-1.2) APTT (22.0-34.0) SEC D-Dimer, Quantitative (0-400) ng/mL Sodium 145 (136-145) mmol/L Potassium 4.0 (3.5-5.1) mmol/L Chloride 111 H (98-107) mmol/L Carbon Dioxide 26 (21-32) mmol/L Anion Gap 12.0 (7-13) mEq/L BUN 7 (7-18) mg/dL Creatinine 0.77 (0.70-1.30) mg/dL Est Cr Clr Drug Dosing TNP Estimated GFR (MDRD) > 60 BUN/Creatinine Ratio 9.1 (No establ ref range) Glucose 83 (70-99) mg/dL Calcium 7.3 L (8.5-10.1) mg/dL Magnesium 2.0 (1.8-2.4) mg/dL Total Bilirubin 0.1 L (0.2-1.0) mg/dL AST 57 H (15-37) U/L ALT 33 (16-63) U/L Alkaline Phosphatase 118 H (46-116) U/L Total Protein 5.5 L (6.4-8.2) g/dL Albumin 1.9 L (3.4-5.0) g/dL Globulin 3.6 Albumin/Globulin Ratio 0.53 Amylase 19 L (25-115) U/L Lipase 174 (73-393) U/L Salicylates 2.9 (2.8-20(Therapeutic)) mg/dL Acetaminophen 0 L (10-30 (Therapeutic)) ug/mL Ethyl Alcohol 364 (0) mg/dL SARS-CoV-2 RNA (FABI) (NEGATIVE) 08/11/21 08/11/21 08/11/21 Range/Units 13:38 13:38 14:00 WBC (5.0-10.0) 10^3/uL RBC (4.6-6.2) 10^6/uL Hgb (14.0-18.0) g/dL Hct (40.0-54.0) % MCV (80-100) fL MCH (27.0-34.0) pg MCHC (33.0-35.0) g/dL Plt Count (150-450) 10^3/uL Neut % (Auto) (42.2-75.2) % Lymph % (Auto) (20.5-50.1) % [place] % (Auto) (2-8) % Eos % (Auto) (1.0-3.0) % Baso % (Auto) (0.0-1.0) % PT 9.6 (9.0-12.0) SEC INR 1.0 (0.9-1.2) APTT 27.5 (22.0-34.0) SEC D-Dimer, Quantitative 1620 H (0-400) ng/mL Sodium (136-145) mmol/L Potassium (3.5-5.1) mmol/L Chloride (98-107) mmol/L Carbon Dioxide (21-32) mmol/L Anion Gap (7-13) mEq/L BUN (7-18) mg/dL Creatinine (0.70-1.30) mg/dL Est Cr Clr Drug Dosing Estimated GFR (MDRD) BUN/Creatinine Ratio (No establ ref range) Glucose (70-99) mg/dL Calcium (8.5-10.1) mg/dL Magnesium (1.8-2.4) mg/dL Total Bilirubin (0.2-1.0) mg/dL AST (15-37) U/L ALT (16-63) U/L Alkaline Phosphatase (46-116) U/L Total Protein (6.4-8.2) g/dL Albumin (3.4-5.0) g/dL Globulin Albumin/Globulin Ratio Amylase (25-115) U/L Lipase (73-393) U/L Salicylates (2.8-20(Therapeutic)) mg/dL Acetaminophen (10-30 (Therapeutic)) ug/mL Ethyl Alcohol (0) mg/dL SARS-CoV-2 RNA (FABI) Positive H (NEGATIVE) Result Diagrams: 08/11/21 13:38 08/11/21 13:17 Sepsis Event Note - Evaluation Sepsis Screening Result: No Definite Risk - Focused Exam Vital Signs: Vital Signs Temp Pulse Resp BP Pulse Ox 08/11/21 14:36 75 20 118/85 99 08/11/21 13:07 98.2 F 67 20 114/82 99 - Problem List & Annotations (1) Alcohol intoxication SNOMED Code(s): 68113881 Code(s): F10.129 - ALCOHOL ABUSE WITH INTOXICATION, UNSPECIFIED Status: Acute Priority: High Current Visit: Yes Onset Date: ~08/07/21 (2) COVID-19 SNOMED Code(s): 581629165 Code(s): U07.1 - COVID-19 Status: Acute Priority: High Current Visit: Yes (3) Eczema SNOMED Code(s): 59683290 Code(s): L30.9 - DERMATITIS, UNSPECIFIED Status: Acute Current Visit: No Qualifiers: Eczema type: unspecified Qualified Code(s): L30.9 - Dermatitis, unspecified (4) Feeling suicidal SNOMED Code(s): 463907027 Code(s): R45.851 - SUICIDAL IDEATIONS Status: Acute Priority: High Current Visit: Yes (5) Hand rn utilization management um poisoning SNOMED Code(s): 387478343 Code(s): T49.0X1A - POISONING BY LOCAL ANTIFUNG/INFECT/INFLAMM DRUGS, ACC, INIT Status: Acute Priority: High Current Visit: Yes Qualifiers: Encounter type: initial encounter Injury intent: intentional self-harm Qualified Code(s): T49.0X2A - Poisoning by local antifungal, anti-infective and anti-inflammatory drugs, intentional self-harm, initial encounter (6) Suicide attempt SNOMED Code(s): 09157314 Code(s): T14.91XA - SUICIDE ATTEMPT, INITIAL ENCOUNTER Status: Acute Priority: High Current Visit: Yes (7) Acute respiratory failure with hypoxia SNOMED Code(s): 81504948, 678723738 Code(s): J96.01 - ACUTE RESPIRATORY FAILURE WITH HYPOXIA Status: Acute Priority: High Current Visit: Yes - Problem List Review Problem List Initiated/Reviewed/Updated: Yes - My Orders Last 24 Hours: My Active Orders 08/11/21 16:52 Aspiration Precautions [RC] ASDIRECTED CIWAA Assessment [RC] Q4H Notify Provider [RC] PRN Oxygen Therapy [RC] PRN Up With Assistance [RC] ASDIRECTED VTE/DVT Education [RC] PER UNIT ROUTINE Vital Signs [RC] Q4H Consult to Case Management/Route Delivery Supervisor [CONS] Routine PT Evaluation and Treatment [CONS] Routine Acetaminophen [TylenoL] 650 mg PO Q4H PRN LORazepam [Ativan] See Protocol IV TITRATE PRN LORazepam [Ativan] See Protocol PO TITRATE PRN Seizure Precautions [OM.PC] Stat Resuscitation Status Routine 08/11/21 16:58 Cardiac Monitoring [RC] CONTINUOUS 08/11/21 17:00 Enoxaparin [Lovenox] 40 mg SUBCUT DAILY Lactated Ringers [Ringers, Lactated] 1,000 ml IV ASDIRECTED Nicotine [Habitrol] 21 mg TRDERM DAILY 08/11/21 17:01 Remdesivir 200 mg Sodium Chloride 0.9% [Normal Saline] 250 ml IV ONETIME Isolation [COMM] Stat 08/11/21 17:04 Chest w Cont [CT] Routine 08/11/21 Dinner Regular Diet [DIET] dexAMETHasone 6 mg PO DAILY 08/11/21 17:37 MISC TEST Routine 08/11/21 17:39 INR,PT,PROTHROMBIN TIME [COAG] Routine 08/11/21 17:46 Echo Comp wo Cont [US] Routine 08/11/21 19:00 BASIC METABOLIC PANEL,BMP [CHEM] Timed ETHANOL BLOOD MEDICAL [CHEM] Routine 08/11/21 21:00 Check Patch 1 ea TRDERM BEDTIME 08/11/21 23:00 BASIC METABOLIC PANEL,BMP [CHEM] Timed ETHANOL BLOOD MEDICAL [CHEM] Routine 08/12/21 05:11 CBC WITH AUTO DIFF [HEME] AM MAGNESIUM [CHEM] AM PHOSPHORUS [CHEM] AM 08/12/21 09:00 Folic Acid 1 mg PO DAILY Multivitamins [Tab-A-Jeancarlos] 1 tab PO DAILY Remdesivir 100 mg Sodium Chloride 0.9% [Normal Saline AdvBag] 100 ml IV Q24H Thiamine [Vitamin B-1] 100 mg PO DAILY 08/12/21 17:00 COMPREHENSIVE METABOLIC PN,CMP [CHEM] DAILY 08/13/21 17:00 COMPREHENSIVE METABOLIC PN,CMP [CHEM] DAILY - Assessment Assessment:: EKG interpretation from 08/11/2021 at 1554 Normal sinus rhythm Rate 65 Abnormal P wave, left atrial enlargement Prolonged ME Prolonged QTC Flat T waves in inferior leads T wave inversions in lead V3 and V4 Left anterior fascicular block No prior - Plan Plan:: Oscar is a 46-year-old male with past medical history of recurrent alcohol intoxication and psoriasis presenting to the emergency room via ambulance with abdominal pain, intoxication, and suicide attempt with Prozac. - Alcohol intoxication Self-reports history of seizure 3 days ago Complains of severe abdominal pain, but lipase is negative, so pancreatitis is unlikely at this time, but not off the differential CIWA protocol with Ativan Seizure precautions - Suicide attempt With Prozac, unknown number of pills, unknown timeline EKG in ER showed normal sinus rhythm, rate 65 bpm, abnormal P wave in leads II, III, and aVF, left atrial enlargement, prolonged ME interval, prolonged QTc, flat T waves in inferior leads, T wave inversions in leads V3 and V4, left anterior fascicular block, and a regular rhythm Spoke with poison control and they recommended to procure BMP and EtOH every 4 hours until the EtOH is less than 100. Then obtain only BMP 12 hours after EtOH is less than 100 Methanol pending Observe for serotonin syndrome Suicide precautions [facility] to be consulted for psych eval Patient cannot leave hospital due to suicide attempt before psych eval - COVID-19 positive Requiring 1 L of oxygen as desaturates quickly with activity EKG showed left anterior fascicular block and left atrial enlargement Dexamethasone 6 mg for 10 days ending on 08/21/2021 Remdesivir started today CTA ordered Echo ordered Airborne, droplet, and contact precautions Place in negative pressure room - Psoriasis, severe Starting dexamethasone 4 COVID-19, which should help his skin condition Diet: General DVT: Lovenox, prophylactic dose Disposition: Safe alcohol withdrawal and psych eval
[2021-08-11] MEDS ORDERED: Water For Injection, Sterile 40 ML ONE (18:22)
[2021-08-11] MEDS: Nicotine 21 MG/24 Hr Patch TRDERM SCH ×2 (18:44→18:53)
[2021-08-11] MEDS: Enoxaparin 40 MG/0.4 ML Syringe SUBCUT SCH (18:44)
[2021-08-11] MEDS: Dexamethasone 6 MG TABLET PO SCH (18:44)
--- NOTE | 2021-08-11 19:18 | CT ---
PROCEDURE INFORMATION: Exam: CTA Chest With Contrast Exam date and time: 08/11/2021 5:39 PM Age: 46 years old Clinical indication: Other: Pe protocol; Additional info: Elevated d-dimer 1620--- covid pos requiring o2 TECHNIQUE: Imaging protocol: Computed tomographic angiography of the chest with contrast. 3D rendering (Not supervised by radiologist): MIP and/or 3D reconstructed images were created and reviewed. Radiation optimization: All CT scans at this facility use at least one of these dose optimization techniques: automated exposure control; mA and/or kV adjustment per patient size (includes targeted exams where dose is matched to clinical indication); or iterative reconstruction. Contrast material: [id number]; Contrast volume: 74 ml; Contrast route: INTRAVENOUS (IV); COMPARISON: CR Chest 1V Frontal 06/08/2021 8:38 AM FINDINGS: Pulmonary arteries: No evidence of pulmonary embolus to the segmental level. Aorta: Unremarkable. No aortic aneurysm. No aortic dissection. Lungs: A few scattered tiny alveolar opacities are seen compatible with inflammatory changes and likely represent infection. These are worst in the right lower lobe. Mild bronchial wall thickening fairly diffusely. This may represent bronchitis. Pleural spaces: Small layering right pleural effusion with associated atelectasis. Heart: Coronary artery calcifications. Mild cardiac enlargement. Lymph nodes: Mildly prominent bilateral axillary lymph nodes. Stomach and bowel: [id number] distention of the stomach with food and fluid. Bones/joints: Unremarkable. No acute fracture. Soft tissues: Unremarkable. IMPRESSION: 1. No evidence of pulmonary embolus 2. Scattered likely inflammatory opacities worse in the right middle lobe are compatible with infection 3. Small layering right effusion 4. Findings compatible with mild bronchitis
[2021-08-11 19:36] LABS: ANION GAP 15.7 mEq/L (7-13); CHLORIDE,CL 108 mmol/L (98-107); SODIUM,NA 143 mmol/L (136-145)
[2021-08-11] MEDS: Acetaminophen 325 MG Tab PO PRN (20:14)
[2021-08-11] MEDS: LORazepam 2 MG/ML SDV IV PRN ×3 (20:33→22:43)
[2021-08-11] MEDS ORDERED: hydrOXYzine HCl 10 MG Tab PO ONE (20:42)
[2021-08-11] MEDS ORDERED: Metoprolol Tartrate 5 MG/5 ML SDV IVPUSH PRN (20:44)
[2021-08-11] MEDS: Metoprolol Tartrate 25 MG Tab PO SCH (21:08)
[2021-08-11] MEDS: Check NICOTINE Patch TRDERM SCH (21:22)
[2021-08-11 23:30] LABS: ANION GAP 14.5 mEq/L (7-13); CHLORIDE,CL 107 mmol/L (98-107); SODIUM,NA 140 mmol/L (136-145)
[2021-08-12] MEDS: LORazepam 2 MG/ML SDV IV PRN ×2 (00:10→03:15)
[2021-08-12] MEDS: Acetaminophen 325 MG Tab PO PRN (00:15)
[2021-08-12] MEDS: Isopropyl Myristate/Mineral Oil/Water Lotion 240 ML Bottle TOP SCH ×5 (01:33→20:22)
[2021-08-12] MEDS: Dexamethasone 6 MG TABLET PO SCH (08:17)
[2021-08-12] MEDS: Folic Acid 1 MG Tab PO SCH (08:17)
[2021-08-12] MEDS: Metoprolol Tartrate 25 MG Tab PO SCH ×2 (08:17→20:16)
[2021-08-12] MEDS: Enoxaparin 40 MG/0.4 ML Syringe SUBCUT SCH (08:20)
[2021-08-12] MEDS: Nicotine 21 MG/24 Hr Patch TRDERM SCH (08:21)
[2021-08-12] MEDS: REMDESIVIR 100 MG in Sodium Chloride 0.9% 100 ML IV SCH (08:22)
[2021-08-12] MEDS ORDERED: Multivitamin Tab PO SCH (09:00)
[2021-08-12] MEDS ORDERED: Thiamine 100 MG Tab PO SCH (09:00)
[2021-08-12] MEDS ORDERED: hydrALAZINE 20 MG/ML SDV IVPUSH PRN (09:40)
[2021-08-12] MEDS ORDERED: Enoxaparin 40 MG/0.4 ML Syringe SUBCUT ONE (09:45)
[2021-08-12] MEDS ORDERED: MVI, Adult with Vitamin K 10 ML, Folic Acid 1 MG, Thiamine 100 MG in Lactated Ringers 1... IV ONE ×4 (09:46)
[2021-08-12 10:55] LABS: AMPHETAMINES,URINE NEGATIVE (NEGATIVE); BARBITURATES,URINE NEGATIVE (NEGATIVE); BENZODIAZEPINE,URINE POSITIVE (NEGATIVE); MDMA (ECSTASY), URINE NEGATIVE (NEGATIVE); METHADONE,URINE NEGATIVE (NEGATIVE); METHAMPHETAMINES,URINE NEGATIVE (NEGATIVE); OPIATES,URINE NEGATIVE (NEGATIVE); OXYCODONE,URINE NEGATIVE (NEGATIVE); PHENCYCLIDINE,URINE NEGATIVE (NEGATIVE); TCA,URINE NEGATIVE (NEGATIVE)
[2021-08-12] MEDS ORDERED: chlordiazePOXIDE 25 MG Cap PO PRN ×2 (11:01→11:02)
[2021-08-12] MEDS ORDERED: LORazepam 2 MG/ML SDV IVPUSH PRN (11:03)
--- NOTE | 2021-08-12 11:14 | PCM.PN ---
- General Info Date of Service: 08/12/21 Admission Dx/Problem (Free Text): Intoxication, suicide attempt, COVID-19 positive Subjective Update: Oscar is a 46-year-old male with past medical history of recurrent alcohol intoxication and psoriasis presenting to the emergency room via ambulance with abdominal pain, intoxication, and suicide attempt with Prozac. When I encountered him this morning, Mr. Moore was sleeping (he is on ativan for alcohol withdrawal). He opened eyes when I called him. But he did not answer questions. His BP is uncontrolled. He has mild tachycardia On RM D-dimer 1620 AST 56, al phos 117 Albumin 1.7 UDS- positive for BZ, Ethyl alcohol trending down to 60 - Review of Systems Systems Review Comment:: does not answer questions and follow commands (sleeping, on ativan) - Patient Data Vitals - Most Recent: Last Vital Signs Temp 36.8 C 08/12/21 08:03 Pulse 86 08/12/21 08:17 Resp 16 08/12/21 08:03 BP 157/107 H 08/12/21 08:17 Pulse Ox 96 08/12/21 08:03 Weight - Most Recent: 80.739 kg I&O - Last 24 Hours: Intake & Output 08/11/21 08/12/21 08/12/21 22:59 06:59 14:59 Intake Total 2520 200 Output Total 300 800 Balance 2220 -800 200 Lab Results Last 24 Hours: Laboratory Results - last 24 hr 08/11/21 08/11/21 08/11/21 Range/Units 13:17 13:17 13:38 WBC 6.5 (5.0-10.0) 10^3/uL RBC 4.33 L (4.6-6.2) 10^6/uL Hgb 13.0 L D (14.0-18.0) g/dL Hct 39.7 L (40.0-54.0) % MCV 91.7 D (80-100) fL MCH 30.0 (27.0-34.0) pg MCHC 32.7 L (33.0-35.0) g/dL Plt Count 462 H (150-450) 10^3/uL Neut % (Auto) 65.4 (42.2-75.2) % Lymph % (Auto) 12.5 L (20.5-50.1) % Bent % (Auto) 5.7 (2-8) % Eos % (Auto) 15.5 H (1.0-3.0) % Baso % (Auto) 0.9 (0.0-1.0) % PT (9.0-12.0) SEC INR (0.9-1.2) APTT (22.0-34.0) SEC D-Dimer, Quantitative (0-400) ng/mL Sodium 145 (136-145) mmol/L Potassium 4.0 (3.5-5.1) mmol/L Chloride 111 H (98-107) mmol/L Carbon Dioxide 26 (21-32) mmol/L Anion Gap 12.0 (7-13) mEq/L BUN 7 (7-18) mg/dL Creatinine 0.77 (0.70-1.30) mg/dL Est Cr Clr Drug Dosing TNP Estimated GFR (MDRD) > 60 BUN/Creatinine Ratio 9.1 (No establ ref range) Glucose 83 (70-99) mg/dL Calcium 7.3 L (8.5-10.1) mg/dL Phosphorus (2.6-4.7) mg/dL Magnesium 2.0 (1.8-2.4) mg/dL Total Bilirubin 0.1 L (0.2-1.0) mg/dL Direct Bilirubin (0.0-0.2) mg/dL AST 57 H (15-37) U/L ALT 33 (16-63) U/L Alkaline Phosphatase 118 H (46-116) U/L Total Protein 5.5 L (6.4-8.2) g/dL Albumin 1.9 L (3.4-5.0) g/dL Globulin 3.6 Albumin/Globulin Ratio 0.53 Amylase 19 L (25-115) U/L Lipase 174 (73-393) U/L Urine Color (YELLOW) Urine Appearance (CLEAR) Urine pH (5.0-9.0) Ur Specific [place] (1.005-1.030) Urine Protein (NEGATIVE) Urine Glucose (UA) (NEGATIVE) Urine Ketones (NEGATIVE) Urine Occult Blood (NEGATIVE) Urine Nitrite (NEGATIVE) Urine Bilirubin (NEGATIVE) Urine Urobilinogen (0.2-1.0) mg/dL Ur Leukocyte Esterase (NEGATIVE) Salicylates 2.9 (2.8-20(Therapeutic)) mg/dL Urine Opiates Screen (NEGATIVE) Ur Oxycodone Screen (NEGATIVE) Urine Methadone Screen (NEGATIVE) Acetaminophen 0 L (10-30 (Therapeutic)) ug/mL Ur Barbiturates Screen (NEGATIVE) U Tricyclic Antidepress (NEGATIVE) Ur Phencyclidine Scrn (NEGATIVE) Ur Amphetamine Screen (NEGATIVE) U Methamphetamines Scrn (NEGATIVE) Urine MDMA Screen (NEGATIVE) U Benzodiazepines Scrn (NEGATIVE) Urine Cocaine Screen (NEGATIVE) U Marijuana (THC) Screen (NEGATIVE) Ethyl Alcohol 364 (0) mg/dL SARS-CoV-2 RNA (FABI) (NEGATIVE) 08/11/21 08/11/21 08/11/21 Range/Units 13:38 13:38 14:00 WBC (5.0-10.0) 10^3/uL RBC (4.6-6.2) 10^6/uL Hgb (14.0-18.0) g/dL Hct (40.0-54.0) % MCV (80-100) fL MCH (27.0-34.0) pg MCHC (33.0-35.0) g/dL Plt Count (150-450) 10^3/uL Neut % (Auto) (42.2-75.2) % Lymph % (Auto) (20.5-50.1) % Bent % (Auto) (2-8) % Eos % (Auto) (1.0-3.0) % Baso % (Auto) (0.0-1.0) % PT 9.6 (9.0-12.0) SEC INR 1.0 (0.9-1.2) APTT 27.5 (22.0-34.0) SEC D-Dimer, Quantitative 1620 H (0-400) ng/mL Sodium (136-145) mmol/L Potassium (3.5-5.1) mmol/L Chloride (98-107) mmol/L Carbon Dioxide (21-32) mmol/L Anion Gap (7-13) mEq/L BUN (7-18) mg/dL Creatinine (0.70-1.30) mg/dL Est Cr Clr Drug Dosing Estimated GFR (MDRD) BUN/Creatinine Ratio (No establ ref range) Glucose (70-99) mg/dL Calcium (8.5-10.1) mg/dL Phosphorus (2.6-4.7) mg/dL Magnesium (1.8-2.4) mg/dL Total Bilirubin (0.2-1.0) mg/dL Direct Bilirubin (0.0-0.2) mg/dL AST (15-37) U/L ALT (16-63) U/L Alkaline Phosphatase (46-116) U/L Total Protein (6.4-8.2) g/dL Albumin (3.4-5.0) g/dL Globulin Albumin/Globulin Ratio Amylase (25-115) U/L Lipase (73-393) U/L Urine Color (YELLOW) Urine Appearance (CLEAR) Urine pH (5.0-9.0) Ur Specific [place] (1.005-1.030) Urine Protein (NEGATIVE) Urine Glucose (UA) (NEGATIVE) Urine Ketones (NEGATIVE) Urine Occult Blood (NEGATIVE) Urine Nitrite (NEGATIVE) Urine Bilirubin (NEGATIVE) Urine Urobilinogen (0.2-1.0) mg/dL Ur Leukocyte Esterase (NEGATIVE) Salicylates (2.8-20(Therapeutic)) mg/dL Urine Opiates Screen (NEGATIVE) Ur Oxycodone Screen (NEGATIVE) Urine Methadone Screen (NEGATIVE) Acetaminophen (10-30 (Therapeutic)) ug/mL Ur Barbiturates Screen (NEGATIVE) U Tricyclic Antidepress (NEGATIVE) Ur Phencyclidine Scrn (NEGATIVE) Ur Amphetamine Screen (NEGATIVE) U Methamphetamines Scrn (NEGATIVE) Urine MDMA Screen (NEGATIVE) U Benzodiazepines Scrn (NEGATIVE) Urine Cocaine Screen (NEGATIVE) U Marijuana (THC) Screen (NEGATIVE) Ethyl Alcohol (0) mg/dL SARS-CoV-2 RNA (FABI) Positive H (NEGATIVE) 08/11/21 08/11/21 08/11/21 Range/Units 19:03 19:03 23:02 WBC (5.0-10.0) 10^3/uL RBC (4.6-6.2) 10^6/uL Hgb (14.0-18.0) g/dL Hct (40.0-54.0) % MCV (80-100) fL MCH (27.0-34.0) pg MCHC (33.0-35.0) g/dL Plt Count (150-450) 10^3/uL Neut % (Auto) (42.2-75.2) % Lymph % (Auto) (20.5-50.1) % Bent % (Auto) (2-8) % Eos % (Auto) (1.0-3.0) % Baso % (Auto) (0.0-1.0) % PT (9.0-12.0) SEC INR (0.9-1.2) APTT (22.0-34.0) SEC D-Dimer, Quantitative (0-400) ng/mL Sodium 143 140 (136-145) mmol/L Potassium 3.7 4.5 (3.5-5.1) mmol/L Chloride 108 H 107 (98-107) mmol/L Carbon Dioxide 23 23 (21-32) mmol/L Anion Gap 15.7 H 14.5 H (7-13) mEq/L BUN 8 8 (7-18) mg/dL Creatinine 0.74 0.90 (0.70-1.30) mg/dL Est Cr Clr Drug Dosing 122.08 100.38 Estimated GFR (MDRD) > 60 > 60 BUN/Creatinine Ratio 8.9 (No establ ref range) Glucose 99 106 H (70-99) mg/dL Calcium 6.8 L 6.7 L (8.5-10.1) mg/dL Phosphorus (2.6-4.7) mg/dL Magnesium (1.8-2.4) mg/dL Total Bilirubin 0.1 L (0.2-1.0) mg/dL Direct Bilirubin 0.1 (0.0-0.2) mg/dL AST 56 H (15-37) U/L ALT 31 (16-63) U/L Alkaline Phosphatase 117 H (46-116) U/L Total Protein 5.2 L (6.4-8.2) g/dL Albumin 1.7 L (3.4-5.0) g/dL Globulin 3.5 Albumin/Globulin Ratio 0.49 Amylase (25-115) U/L Lipase (73-393) U/L Urine Color (YELLOW) Urine Appearance (CLEAR) Urine pH (5.0-9.0) Ur Specific [place] (1.005-1.030) Urine Protein (NEGATIVE) Urine Glucose (UA) (NEGATIVE) Urine Ketones (NEGATIVE) Urine Occult Blood (NEGATIVE) Urine Nitrite (NEGATIVE) Urine Bilirubin (NEGATIVE) Urine Urobilinogen (0.2-1.0) mg/dL Ur Leukocyte Esterase (NEGATIVE) Salicylates (2.8-20(Therapeutic)) mg/dL Urine Opiates Screen (NEGATIVE) Ur Oxycodone Screen (NEGATIVE) Urine Methadone Screen (NEGATIVE) Acetaminophen (10-30 (Therapeutic)) ug/mL Ur Barbiturates Screen (NEGATIVE) U Tricyclic Antidepress (NEGATIVE) Ur Phencyclidine Scrn (NEGATIVE) Ur Amphetamine Screen (NEGATIVE) U Methamphetamines Scrn (NEGATIVE) Urine MDMA Screen (NEGATIVE) U Benzodiazepines Scrn (NEGATIVE) Urine Cocaine Screen (NEGATIVE) U Marijuana (THC) Screen (NEGATIVE) Ethyl Alcohol 180 60 (0) mg/dL SARS-CoV-2 RNA (FABI) (NEGATIVE) 08/12/21 08/12/21 08/12/21 Range/Units 06:25 06:25 10:45 WBC 5.3 (5.0-10.0) 10^3/uL RBC 4.08 L (4.6-6.2) 10^6/uL Hgb 12.3 L (14.0-18.0) g/dL Hct 37.6 L (40.0-54.0) % MCV 92.2 (80-100) fL MCH 30.1 (27.0-34.0) pg MCHC 32.7 L (33.0-35.0) g/dL Plt Count 429 (150-450) 10^3/uL Neut % (Auto) 82.1 H (42.2-75.2) % Lymph % (Auto) 11.6 L (20.5-50.1) % Bent % (Auto) 5.7 (2-8) % Eos % (Auto) 0.2 L (1.0-3.0) % Baso % (Auto) 0.4 (0.0-1.0) % PT (9.0-12.0) SEC INR (0.9-1.2) APTT (22.0-34.0) SEC D-Dimer, Quantitative (0-400) ng/mL Sodium (136-145) mmol/L Potassium (3.5-5.1) mmol/L Chloride (98-107) mmol/L Carbon Dioxide (21-32) mmol/L Anion Gap (7-13) mEq/L BUN (7-18) mg/dL Creatinine (0.70-1.30) mg/dL Est Cr Clr Drug Dosing Estimated GFR (MDRD) BUN/Creatinine Ratio (No establ ref range) Glucose (70-99) mg/dL Calcium (8.5-10.1) mg/dL Phosphorus 3.8 (2.6-4.7) mg/dL Magnesium 1.9 (1.8-2.4) mg/dL Total Bilirubin (0.2-1.0) mg/dL Direct Bilirubin (0.0-0.2) mg/dL AST (15-37) U/L ALT (16-63) U/L Alkaline Phosphatase (46-116) U/L Total Protein (6.4-8.2) g/dL Albumin (3.4-5.0) g/dL Globulin Albumin/Globulin Ratio Amylase (25-115) U/L Lipase (73-393) U/L Urine Color Yellow (YELLOW) Urine Appearance Clear (CLEAR) Urine pH 7.0 (5.0-9.0) Ur Specific [place] 1.025 (1.005-1.030) Urine Protein Negative (NEGATIVE) Urine Glucose (UA) Negative (NEGATIVE) Urine Ketones Negative (NEGATIVE) Urine Occult Blood Trace-intact H (NEGATIVE) Urine Nitrite Negative (NEGATIVE) Urine Bilirubin Negative (NEGATIVE) Urine Urobilinogen 0.2 (0.2-1.0) mg/dL Ur Leukocyte Esterase Negative (NEGATIVE) Salicylates (2.8-20(Therapeutic)) mg/dL Urine Opiates Screen (NEGATIVE) Ur Oxycodone Screen (NEGATIVE) Urine Methadone Screen (NEGATIVE) Acetaminophen (10-30 (Therapeutic)) ug/mL Ur Barbiturates Screen (NEGATIVE) U Tricyclic Antidepress (NEGATIVE) Ur Phencyclidine Scrn (NEGATIVE) Ur Amphetamine Screen (NEGATIVE) U Methamphetamines Scrn (NEGATIVE) Urine MDMA Screen (NEGATIVE) U Benzodiazepines Scrn (NEGATIVE) Urine Cocaine Screen (NEGATIVE) U Marijuana (THC) Screen (NEGATIVE) Ethyl Alcohol (0) mg/dL SARS-CoV-2 RNA (FABI) (NEGATIVE) 08/12/21 Range/Units 10:45 WBC (5.0-10.0) 10^3/uL RBC (4.6-6.2) 10^6/uL Hgb (14.0-18.0) g/dL Hct (40.0-54.0) % MCV (80-100) fL MCH (27.0-34.0) pg MCHC (33.0-35.0) g/dL Plt Count (150-450) 10^3/uL Neut % (Auto) (42.2-75.2) % Lymph % (Auto) (20.5-50.1) % Bent % (Auto) (2-8) % Eos % (Auto) (1.0-3.0) % Baso % (Auto) (0.0-1.0) % PT (9.0-12.0) SEC INR (0.9-1.2) APTT (22.0-34.0) SEC D-Dimer, Quantitative (0-400) ng/mL Sodium (136-145) mmol/L Potassium (3.5-5.1) mmol/L Chloride (98-107) mmol/L Carbon Dioxide (21-32) mmol/L Anion Gap (7-13) mEq/L BUN (7-18) mg/dL Creatinine (0.70-1.30) mg/dL Est Cr Clr Drug Dosing Estimated GFR (MDRD) BUN/Creatinine Ratio (No establ ref range) Glucose (70-99) mg/dL Calcium (8.5-10.1) mg/dL Phosphorus (2.6-4.7) mg/dL Magnesium (1.8-2.4) mg/dL Total Bilirubin (0.2-1.0) mg/dL Direct Bilirubin (0.0-0.2) mg/dL AST (15-37) U/L ALT (16-63) U/L Alkaline Phosphatase (46-116) U/L Total Protein (6.4-8.2) g/dL Albumin (3.4-5.0) g/dL Globulin Albumin/Globulin Ratio Amylase (25-115) U/L Lipase (73-393) U/L Urine Color (YELLOW) Urine Appearance (CLEAR) Urine pH (5.0-9.0) Ur Specific [place] (1.005-1.030) Urine Protein (NEGATIVE) Urine Glucose (UA) (NEGATIVE) Urine Ketones (NEGATIVE) Urine Occult Blood (NEGATIVE) Urine Nitrite (NEGATIVE) Urine Bilirubin (NEGATIVE) Urine Urobilinogen (0.2-1.0) mg/dL Ur Leukocyte Esterase (NEGATIVE) Salicylates (2.8-20(Therapeutic)) mg/dL Urine Opiates Screen Negative (NEGATIVE) Ur Oxycodone Screen Negative (NEGATIVE) Urine Methadone Screen Negative (NEGATIVE) Acetaminophen (10-30 (Therapeutic)) ug/mL Ur Barbiturates Screen Negative (NEGATIVE) U Tricyclic Antidepress Negative (NEGATIVE) Ur Phencyclidine Scrn Negative (NEGATIVE) Ur Amphetamine Screen Negative (NEGATIVE) U Methamphetamines Scrn Negative (NEGATIVE) Urine MDMA Screen Negative (NEGATIVE) U Benzodiazepines Scrn Positive H (NEGATIVE) Urine Cocaine Screen Negative (NEGATIVE) U Marijuana (THC) Screen Negative (NEGATIVE) Ethyl Alcohol (0) mg/dL SARS-CoV-2 RNA (FABI) (NEGATIVE) Med Orders - Current: Current Medications Chlordiazepoxide HCl (Chlordiazepoxide 10 Mg Cap) 10 mg PO Q6H PRN PRN Reason: Withdrawal Symptoms Chlordiazepoxide HCl (Chlordiazepoxide 25 Mg Cap) 25 mg PO Q6H PRN PRN Reason: Withdrawal Symptoms Chlordiazepoxide HCl (Chlordiazepoxide 25 Mg Cap) 50 mg PO Q6H PRN PRN Reason: Withdrawal Symptoms Dexamethasone (Dexamethasone 6 Mg Tablet) 6 mg PO DAILY [facility] Stop: 08/20/21 09:01 Last Admin: 08/12/21 08:17 Dose: 6 mg Documented by: Emollient Ointment (Isopropyl Myristate/Mineral Oil/Water Lotion 240 Ml Bottle) 0 ml TOP QID [facility] Last Admin: 08/12/21 08:31 Dose: Not Given Documented by: Enoxaparin Sodium (Enoxaparin 80 Mg/0.8 Ml Syringe) 80 mg SUBCUT Q12HR [facility] Folic Acid (Folic Acid 1 Mg Tab) 1 mg PO DAILY [facility] Stop: 08/14/21 09:01 Last Admin: 08/12/21 08:17 Dose: 1 mg Documented by: Hydralazine HCl (Hydralazine 20 Mg/Ml Sdv) 10 mg IVPUSH Q4H PRN PRN Reason: Hypertension Remdesivir 100 mg/ Sodium (Chloride) 100 mls @ 100 mls/hr IV Q24H [facility] Stop: 08/15/21 09:59 Last Infusion: 11/06/21 10:11 Dose: Infused Documented by: Multivitamins/Minerals 10 ml/Folic Acid 1 mg/ Thiamine HCl 100 mg/ Lactated Ringer's 1,011.2 mls @ 100 mls/hr IV ONETIME ONE Stop: 08/12/21 19:52 Last Admin: 08/12/21 11:05 Dose: 100 mls/hr Documented by: Lorazepam (Lorazepam 2 Mg/Ml Sdv) 1 mg IVPUSH Q4H PRN PRN Reason: Withdrawal Symptoms Metoprolol Tartrate (Metoprolol Tartrate 5 Mg/5 Ml Sdv) 2.5 mg IVPUSH Q10M PRN PRN Reason: Tachycardia Metoprolol Tartrate (Metoprolol Tartrate 25 Mg Tab) 12.5 mg PO Q12H [facility] Last Admin: 08/12/21 08:17 Dose: 12.5 mg Documented by: Miscellaneous Information (Check Nicotine Patch) 1 ea TRDERM BEDTIME [facility] Last Admin: 08/11/21 21:22 Dose: Not Given Documented by: Multivitamins/Minerals/Vitamin C (Multivitamin Tab) 1 tab PO DAILY [facility] Nicotine (Nicotine 21 Mg/24 Hr Patch) 21 mg TRDERM DAILY [facility] Last Admin: 08/12/21 08:21 Dose: Not Given Documented by: Sodium Chloride (Sodium Chloride 0.9% 10 Ml Syringe) 10 ml FLUSH ASDIRECTED PRN PRN Reason: Keep Vein Open Last Admin: 08/11/21 13:29 Dose: 10 ml Documented by: Thiamine HCl (Thiamine 100 Mg Tab) 100 mg PO DAILY [facility] Triamcinolone Acetonide (Triamcinolone Acetonide 0.1% Crm 15 Gm Tube) 0 gm TOP BID [facility] Discontinued Medications Acetaminophen (Acetaminophen 325 Mg Tab) 650 mg PO Q4H PRN PRN Reason: Pain (Mild 1-3)/fever Last Admin: 08/12/21 00:15 Dose: 650 mg Documented by: Enoxaparin Sodium (Enoxaparin 40 Mg/0.4 Ml Syringe) 40 mg SUBCUT DAILY [facility] Last Admin: 08/12/21 08:20 Dose: 40 mg Documented by: Enoxaparin Sodium (Enoxaparin 40 Mg/0.4 Ml Syringe) 40 mg SUBCUT ONETIME ONE Stop: 08/12/21 09:46 Last Admin: 08/12/21 11:01 Dose: 40 mg Documented by: Hydroxyzine HCl (Hydroxyzine Hcl 10 Mg Tab) 10 mg PO ONETIME ONE Stop: 08/11/21 20:43 Last Admin: 08/11/21 21:08 Dose: 10 mg Documented by: Multivitamins/Minerals 10 ml/Thiamine HCl 100 mg/ Folic Acid 1 mg/ Lactated Ringer's 1,011.2 mls @ 999 mls/hr IV .BOLUS ONE Stop: 08/11/21 13:45 Last Admin: 08/11/21 13:29 Dose: 999 mls/hr Documented by: Lactated Ringer's (Ringers, Lactated) 1,000 mls @ 125 mls/hr IV ASDIRECTED [facility] Stop: 08/11/21 21:01 Last Admin: 08/11/21 20:18 Dose: 125 mls/hr Documented by: Remdesivir 200 mg/ Sodium (Chloride) 250 mls @ 250 mls/hr IV ONETIME ONE Stop: 08/11/21 18:00 Last Admin: 08/11/21 18:46 Dose: 250 mls/hr Documented by: Sterile Water (Sterile Water For Injection) Confirm Administered Dose 40 mls @ as directed .ROUTE .STK-MED ONE Stop: 08/11/21 18:23 Last Admin: 08/11/21 18:54 Dose: Not Given Documented by: Iopamidol (Iopamidol 755 Mg/Ml 100 Ml Bottle) 100 ml IVPUSH ONETIME ONE Stop: 08/11/21 17:40 Last Admin: 08/11/21 18:32 Dose: 100 ml Documented by: Lorazepam (Lorazepam 2 Mg/Ml Sdv) 0 mg IV TITRATE PRN; Protocol PRN Reason: alcohol withdrawal Last Admin: 08/12/21 03:15 Dose: 2 mg Documented by: Lorazepam (Lorazepam 0.5 Mg Tab) 0 mg PO TITRATE PRN; Protocol PRN Reason: alcohol withdrawal Multivitamins/Minerals/Vitamin C (Multivitamin Tab) 1 tab PO DAILY [facility] Last Admin: 08/12/21 08:17 Dose: 1 tab Documented by: Thiamine HCl (Thiamine 100 Mg Tab) 100 mg PO DAILY [facility] Last Admin: 08/12/21 08:17 Dose: 100 mg Documented by: - Exam General: Other (sleeping) HEENT: Pupils Equal, Pupils Reactive Neck: No JVD, No Thyromegaly Lungs: Clear to Auscultation, Normal Respiratory Effort Cardiovascular: Regular Rate, Regular Rhythm, Tachycardia GI/Abdominal Exam: Soft, Non-Tender, No Distention Extremities: Normal Inspection, Non-Tender, No Pedal Edema, Normal Capillary Refill Skin: Warm, Dry, Other (psoriasis) Neurological: No New Focal Deficit, Strength Equal Bilateral Psy/Mental Status: Other (sleeping, on ativan for withdrawal) - Patient Data Lab Results Last 24 hrs: Laboratory Results - last 24 hr 08/11/21 08/11/21 08/11/21 Range/Units 13:17 13:17 13:38 WBC 6.5 (5.0-10.0) 10^3/uL RBC 4.33 L (4.6-6.2) 10^6/uL Hgb 13.0 L D (14.0-18.0) g/dL Hct 39.7 L (40.0-54.0) % MCV 91.7 D (80-100) fL MCH 30.0 (27.0-34.0) pg MCHC 32.7 L (33.0-35.0) g/dL Plt Count 462 H (150-450) 10^3/uL Neut % (Auto) 65.4 (42.2-75.2) % Lymph % (Auto) 12.5 L (20.5-50.1) % Bent % (Auto) 5.7 (2-8) % Eos % (Auto) 15.5 H (1.0-3.0) % Baso % (Auto) 0.9 (0.0-1.0) % PT (9.0-12.0) SEC INR (0.9-1.2) APTT (22.0-34.0) SEC D-Dimer, Quantitative (0-400) ng/mL Sodium 145 (136-145) mmol/L Potassium 4.0 (3.5-5.1) mmol/L Chloride 111 H (98-107) mmol/L Carbon Dioxide 26 (21-32) mmol/L Anion Gap 12.0 (7-13) mEq/L BUN 7 (7-18) mg/dL Creatinine 0.77 (0.70-1.30) mg/dL Est Cr Clr Drug Dosing TNP Estimated GFR (MDRD) > 60 BUN/Creatinine Ratio 9.1 (No establ ref range) Glucose 83 (70-99) mg/dL Calcium 7.3 L (8.5-10.1) mg/dL Phosphorus (2.6-4.7) mg/dL Magnesium 2.0 (1.8-2.4) mg/dL Total Bilirubin 0.1 L (0.2-1.0) mg/dL Direct Bilirubin (0.0-0.2) mg/dL AST 57 H (15-37) U/L ALT 33 (16-63) U/L Alkaline Phosphatase 118 H (46-116) U/L Total Protein 5.5 L (6.4-8.2) g/dL Albumin 1.9 L (3.4-5.0) g/dL Globulin 3.6 Albumin/Globulin Ratio 0.53 Amylase 19 L (25-115) U/L Lipase 174 (73-393) U/L Urine Color (YELLOW) Urine Appearance (CLEAR) Urine pH (5.0-9.0) Ur Specific [place] (1.005-1.030) Urine Protein (NEGATIVE) Urine Glucose (UA) (NEGATIVE) Urine Ketones (NEGATIVE) Urine Occult Blood (NEGATIVE) Urine Nitrite (NEGATIVE) Urine Bilirubin (NEGATIVE) Urine Urobilinogen (0.2-1.0) mg/dL Ur Leukocyte Esterase (NEGATIVE) Salicylates 2.9 (2.8-20(Therapeutic)) mg/dL Urine Opiates Screen (NEGATIVE) Ur Oxycodone Screen (NEGATIVE) Urine Methadone Screen (NEGATIVE) Acetaminophen 0 L (10-30 (Therapeutic)) ug/mL Ur Barbiturates Screen (NEGATIVE) U Tricyclic Antidepress (NEGATIVE) Ur Phencyclidine Scrn (NEGATIVE) Ur Amphetamine Screen (NEGATIVE) U Methamphetamines Scrn (NEGATIVE) Urine MDMA Screen (NEGATIVE) U Benzodiazepines Scrn (NEGATIVE) Urine Cocaine Screen (NEGATIVE) U Marijuana (THC) Screen (NEGATIVE) Ethyl Alcohol 364 (0) mg/dL SARS-CoV-2 RNA (AFBI) (NEGATIVE) 08/11/21 08/11/21 08/11/21 Range/Units 13:38 13:38 14:00 WBC (5.0-10.0) 10^3/uL RBC (4.6-6.2) 10^6/uL Hgb (14.0-18.0) g/dL Hct (40.0-54.0) % MCV (80-100) fL MCH (27.0-34.0) pg MCHC (33.0-35.0) g/dL Plt Count (150-450) 10^3/uL Neut % (Auto) (42.2-75.2) % Lymph % (Auto) (20.5-50.1) % Bent % (Auto) (2-8) % Eos % (Auto) (1.0-3.0) % Baso % (Auto) (0.0-1.0) % PT 9.6 (9.0-12.0) SEC INR 1.0 (0.9-1.2) APTT 27.5 (22.0-34.0) SEC D-Dimer, Quantitative 1620 H (0-400) ng/mL Sodium (136-145) mmol/L Potassium (3.5-5.1) mmol/L Chloride (98-107) mmol/L Carbon Dioxide (21-32) mmol/L Anion Gap (7-13) mEq/L BUN (7-18) mg/dL Creatinine (0.70-1.30) mg/dL Est Cr Clr Drug Dosing Estimated GFR (MDRD) BUN/Creatinine Ratio (No establ ref range) Glucose (70-99) mg/dL Calcium (8.5-10.1) mg/dL Phosphorus (2.6-4.7) mg/dL Magnesium (1.8-2.4) mg/dL Total Bilirubin (0.2-1.0) mg/dL Direct Bilirubin (0.0-0.2) mg/dL AST (15-37) U/L ALT (16-63) U/L Alkaline Phosphatase (46-116) U/L Total Protein (6.4-8.2) g/dL Albumin (3.4-5.0) g/dL Globulin Albumin/Globulin Ratio Amylase (25-115) U/L Lipase (73-393) U/L Urine Color (YELLOW) Urine Appearance (CLEAR) Urine pH (5.0-9.0) Ur Specific [place] (1.005-1.030) Urine Protein (NEGATIVE) Urine Glucose (UA) (NEGATIVE) Urine Ketones (NEGATIVE) Urine Occult Blood (NEGATIVE) Urine Nitrite (NEGATIVE) Urine Bilirubin (NEGATIVE) Urine Urobilinogen (0.2-1.0) mg/dL Ur Leukocyte Esterase (NEGATIVE) Salicylates (2.8-20(Therapeutic)) mg/dL Urine Opiates Screen (NEGATIVE) Ur Oxycodone Screen (NEGATIVE) Urine Methadone Screen (NEGATIVE) Acetaminophen (10-30 (Therapeutic)) ug/mL Ur Barbiturates Screen (NEGATIVE) U Tricyclic Antidepress (NEGATIVE) Ur Phencyclidine Scrn (NEGATIVE) Ur Amphetamine Screen (NEGATIVE) U Methamphetamines Scrn (NEGATIVE) Urine MDMA Screen (NEGATIVE) U Benzodiazepines Scrn (NEGATIVE) Urine Cocaine Screen (NEGATIVE) U Marijuana (THC) Screen (NEGATIVE) Ethyl Alcohol (0) mg/dL SARS-CoV-2 RNA (FABI) Positive H (NEGATIVE) 08/11/21 08/11/21 08/11/21 Range/Units 19:03 19:03 23:02 WBC (5.0-10.0) 10^3/uL RBC (4.6-6.2) 10^6/uL Hgb (14.0-18.0) g/dL Hct (40.0-54.0) % MCV (80-100) fL MCH (27.0-34.0) pg MCHC (33.0-35.0) g/dL Plt Count (150-450) 10^3/uL Neut % (Auto) (42.2-75.2) % Lymph % (Auto) (20.5-50.1) % Bent % (Auto) (2-8) % Eos % (Auto) (1.0-3.0) % Baso % (Auto) (0.0-1.0) % PT (9.0-12.0) SEC INR (0.9-1.2) APTT (22.0-34.0) SEC D-Dimer, Quantitative (0-400) ng/mL Sodium 143 140 (136-145) mmol/L Potassium 3.7 4.5 (3.5-5.1) mmol/L Chloride 108 H 107 (98-107) mmol/L Carbon Dioxide 23 23 (21-32) mmol/L Anion Gap 15.7 H 14.5 H (7-13) mEq/L BUN 8 8 (7-18) mg/dL Creatinine 0.74 0.90 (0.70-1.30) mg/dL Est Cr Clr Drug Dosing 122.08 100.38 Estimated GFR (MDRD) > 60 > 60 BUN/Creatinine Ratio 8.9 (No establ ref range) Glucose 99 106 H (70-99) mg/dL Calcium 6.8 L 6.7 L (8.5-10.1) mg/dL Phosphorus (2.6-4.7) mg/dL Magnesium (1.8-2.4) mg/dL Total Bilirubin 0.1 L (0.2-1.0) mg/dL Direct Bilirubin 0.1 (0.0-0.2) mg/dL AST 56 H (15-37) U/L ALT 31 (16-63) U/L Alkaline Phosphatase 117 H (46-116) U/L Total Protein 5.2 L (6.4-8.2) g/dL Albumin 1.7 L (3.4-5.0) g/dL Globulin 3.5 Albumin/Globulin Ratio 0.49 Amylase (25-115) U/L Lipase (73-393) U/L Urine Color (YELLOW) Urine Appearance (CLEAR) Urine pH (5.0-9.0) Ur Specific [place] (1.005-1.030) Urine Protein (NEGATIVE) Urine Glucose (UA) (NEGATIVE) Urine Ketones (NEGATIVE) Urine Occult Blood (NEGATIVE) Urine Nitrite (NEGATIVE) Urine Bilirubin (NEGATIVE) Urine Urobilinogen (0.2-1.0) mg/dL Ur Leukocyte Esterase (NEGATIVE) Salicylates (2.8-20(Therapeutic)) mg/dL Urine Opiates Screen (NEGATIVE) Ur Oxycodone Screen (NEGATIVE) Urine Methadone Screen (NEGATIVE) Acetaminophen (10-30 (Therapeutic)) ug/mL Ur Barbiturates Screen (NEGATIVE) U Tricyclic Antidepress (NEGATIVE) Ur Phencyclidine Scrn (NEGATIVE) Ur Amphetamine Screen (NEGATIVE) U Methamphetamines Scrn (NEGATIVE) Urine MDMA Screen (NEGATIVE) U Benzodiazepines Scrn (NEGATIVE) Urine Cocaine Screen (NEGATIVE) U Marijuana (THC) Screen (NEGATIVE) Ethyl Alcohol 180 60 (0) mg/dL SARS-CoV-2 RNA (FABI) (NEGATIVE) 08/12/21 08/12/21 08/12/21 Range/Units 06:25 06:25 10:45 WBC 5.3 (5.0-10.0) 10^3/uL RBC 4.08 L (4.6-6.2) 10^6/uL Hgb 12.3 L (14.0-18.0) g/dL Hct 37.6 L (40.0-54.0) % MCV 92.2 (80-100) fL MCH 30.1 (27.0-34.0) pg MCHC 32.7 L (33.0-35.0) g/dL Plt Count 429 (150-450) 10^3/uL Neut % (Auto) 82.1 H (42.2-75.2) % Lymph % (Auto) 11.6 L (20.5-50.1) % Bent % (Auto) 5.7 (2-8) % Eos % (Auto) 0.2 L (1.0-3.0) % Baso % (Auto) 0.4 (0.0-1.0) % PT (9.0-12.0) SEC INR (0.9-1.2) APTT (22.0-34.0) SEC D-Dimer, Quantitative (0-400) ng/mL Sodium (136-145) mmol/L Potassium (3.5-5.1) mmol/L Chloride (98-107) mmol/L Carbon Dioxide (21-32) mmol/L Anion Gap (7-13) mEq/L BUN (7-18) mg/dL Creatinine (0.70-1.30) mg/dL Est Cr Clr Drug Dosing Estimated GFR (MDRD) BUN/Creatinine Ratio (No establ ref range) Glucose (70-99) mg/dL Calcium (8.5-10.1) mg/dL Phosphorus 3.8 (2.6-4.7) mg/dL Magnesium 1.9 (1.8-2.4) mg/dL Total Bilirubin (0.2-1.0) mg/dL Direct Bilirubin (0.0-0.2) mg/dL AST (15-37) U/L ALT (16-63) U/L Alkaline Phosphatase (46-116) U/L Total Protein (6.4-8.2) g/dL Albumin (3.4-5.0) g/dL Globulin Albumin/Globulin Ratio Amylase (25-115) U/L Lipase (73-393) U/L Urine Color Yellow (YELLOW) Urine Appearance Clear (CLEAR) Urine pH 7.0 (5.0-9.0) Ur Specific [place] 1.025 (1.005-1.030) Urine Protein Negative (NEGATIVE) Urine Glucose (UA) Negative (NEGATIVE) Urine Ketones Negative (NEGATIVE) Urine Occult Blood Trace-intact H (NEGATIVE) Urine Nitrite Negative (NEGATIVE) Urine Bilirubin Negative (NEGATIVE) Urine Urobilinogen 0.2 (0.2-1.0) mg/dL Ur Leukocyte Esterase Negative (NEGATIVE) Salicylates (2.8-20(Therapeutic)) mg/dL Urine Opiates Screen (NEGATIVE) Ur Oxycodone Screen (NEGATIVE) Urine Methadone Screen (NEGATIVE) Acetaminophen (10-30 (Therapeutic)) ug/mL Ur Barbiturates Screen (NEGATIVE) U Tricyclic Antidepress (NEGATIVE) Ur Phencyclidine Scrn (NEGATIVE) Ur Amphetamine Screen (NEGATIVE) U Methamphetamines Scrn (NEGATIVE) Urine MDMA Screen (NEGATIVE) U Benzodiazepines Scrn (NEGATIVE) Urine Cocaine Screen (NEGATIVE) U Marijuana (THC) Screen (NEGATIVE) Ethyl Alcohol (0) mg/dL SARS-CoV-2 RNA (FABI) (NEGATIVE) 08/12/21 Range/Units 10:45 WBC (5.0-10.0) 10^3/uL RBC (4.6-6.2) 10^6/uL Hgb (14.0-18.0) g/dL Hct (40.0-54.0) % MCV (80-100) fL MCH (27.0-34.0) pg MCHC (33.0-35.0) g/dL Plt Count (150-450) 10^3/uL Neut % (Auto) (42.2-75.2) % Lymph % (Auto) (20.5-50.1) % [place] % (Auto) (2-8) % Eos % (Auto) (1.0-3.0) % Baso % (Auto) (0.0-1.0) % PT (9.0-12.0) SEC INR (0.9-1.2) APTT (22.0-34.0) SEC D-Dimer, Quantitative (0-400) ng/mL Sodium (136-145) mmol/L Potassium (3.5-5.1) mmol/L Chloride (98-107) mmol/L Carbon Dioxide (21-32) mmol/L Anion Gap (7-13) mEq/L BUN (7-18) mg/dL Creatinine (0.70-1.30) mg/dL Est Cr Clr Drug Dosing Estimated GFR (MDRD) BUN/Creatinine Ratio (No establ ref range) Glucose (70-99) mg/dL Calcium (8.5-10.1) mg/dL Phosphorus (2.6-4.7) mg/dL Magnesium (1.8-2.4) mg/dL Total Bilirubin (0.2-1.0) mg/dL Direct Bilirubin (0.0-0.2) mg/dL AST (15-37) U/L ALT (16-63) U/L Alkaline Phosphatase (46-116) U/L Total Protein (6.4-8.2) g/dL Albumin (3.4-5.0) g/dL Globulin Albumin/Globulin Ratio Amylase (25-115) U/L Lipase (73-393) U/L Urine Color (YELLOW) Urine Appearance (CLEAR) Urine pH (5.0-9.0) Ur Specific [place] (1.005-1.030) Urine Protein (NEGATIVE) Urine Glucose (UA) (NEGATIVE) Urine Ketones (NEGATIVE) Urine Occult Blood (NEGATIVE) Urine Nitrite (NEGATIVE) Urine Bilirubin (NEGATIVE) Urine Urobilinogen (0.2-1.0) mg/dL Ur Leukocyte Esterase (NEGATIVE) Salicylates (2.8-20(Therapeutic)) mg/dL Urine Opiates Screen Negative (NEGATIVE) Ur Oxycodone Screen Negative (NEGATIVE) Urine Methadone Screen Negative (NEGATIVE) Acetaminophen (10-30 (Therapeutic)) ug/mL Ur Barbiturates Screen Negative (NEGATIVE) U Tricyclic Antidepress Negative (NEGATIVE) Ur Phencyclidine Scrn Negative (NEGATIVE) Ur Amphetamine Screen Negative (NEGATIVE) U Methamphetamines Scrn Negative (NEGATIVE) Urine MDMA Screen Negative (NEGATIVE) U Benzodiazepines Scrn Positive H (NEGATIVE) Urine Cocaine Screen Negative (NEGATIVE) U Marijuana (THC) Screen Negative (NEGATIVE) Ethyl Alcohol (0) mg/dL SARS-CoV-2 RNA (FABI) (NEGATIVE) Result Diagrams: 08/12/21 06:25 08/11/21 23:02 Sepsis Event Note - Evaluation Sepsis Screening Result: No Definite Risk - Focused Exam Vital Signs: Vital Signs Temp Temp Pulse Pulse Resp BP BP 08/12/21 08:17 86 157/107 H 08/12/21 08:03 36.8 C 82 16 153/92 H 08/12/21 03:23 37.0 C 95 20 134/92 H 08/12/21 03:00 37.0 C 08/12/21 00:15 37.9 C 08/11/21 23:52 37.9 C 101 H 19 130/86 Pulse Ox 08/12/21 08:17 08/12/21 08:03 96 08/12/21 03:23 95 08/12/21 03:00 08/12/21 00:15 08/11/21 23:52 92 L - Problem List Review Problem List Initiated/Reviewed/Updated: Yes - My Orders Last 24 Hours: My Active Orders 08/11/21 20:44 Metoprolol Tartrate [Lopressor] 2.5 mg IVPUSH Q10M PRN 08/11/21 21:00 I-Prop Myr/Mineral Oil/Water [Hydrocerin Lotion] See Dose Instructions TOP QID Metoprolol Tartrate [Lopressor] 12.5 mg PO Q12H 08/12/21 09:40 hydrALAZINE [Apresoline] 10 mg IVPUSH Q4H PRN 08/12/21 09:46 MVI, Adult with Vitamin K [Infuvite Adult] 10 ml Folic Acid 1 mg Thiamine [Vitamin B-1] 100 mg Lactated Ringers [Ringers, Lactated] 1,000 ml IV ONETIME 08/12/21 10:59 chlordiazePOXIDE [Librium] 10 mg PO Q6H PRN 08/12/21 11:00 BILIRUBIN DIRECT [CHEM] Routine CMP [COMPREHENSIVE METABOLIC PN,CMP] [CHEM] Routine 08/12/21 11:01 chlordiazePOXIDE [Librium] 25 mg PO Q6H PRN 08/12/21 11:02 chlordiazePOXIDE [Librium] 50 mg PO Q6H PRN 08/12/21 11:03 LORazepam [Ativan] 1 mg IVPUSH Q4H PRN 08/12/21 21:00 Enoxaparin [Lovenox] 80 mg SUBCUT Q12HR Triamcinolone Acetonide [Triamcinolone Acetonide 0.1% Crm] 0 gm TOP BID 08/13/21 05:00 CBC WITH AUTO DIFF [HEME] DAILY COMPREHENSIVE METABOLIC PN,CMP [CHEM] DAILY 08/13/21 09:00 Multivitamins [Tab-A-Jeancarlos] 1 tab PO DAILY Thiamine [Vitamin B-1] 100 mg PO DAILY 08/13/21 09:48 CRP [C-REACTIVE PROTEIN] [CHEM] DAILY 08/14/21 05:00 CBC WITH AUTO DIFF [HEME] DAILY COMPREHENSIVE METABOLIC PN,CMP [CHEM] DAILY 08/14/21 09:48 CRP [C-REACTIVE PROTEIN] [CHEM] DAILY 08/15/21 05:00 CBC WITH AUTO DIFF [HEME] DAILY COMPREHENSIVE METABOLIC PN,CMP [CHEM] DAILY 08/15/21 09:48 CRP [C-REACTIVE PROTEIN] [CHEM] DAILY 08/16/21 05:00 CBC WITH AUTO DIFF [HEME] DAILY COMPREHENSIVE METABOLIC PN,CMP [CHEM] DAILY 08/17/21 05:00 CBC WITH AUTO DIFF [HEME] DAILY COMPREHENSIVE METABOLIC PN,CMP [CHEM] DAILY - Assessment Assessment:: EKG interpretation from 08/11/2021 at 1554 Normal sinus rhythm Rate 65 Abnormal P wave, left atrial enlargement Prolonged WI Prolonged QTC Flat T waves in inferior leads T wave inversions in lead V3 and V4 Left anterior fascicular block No prior - Plan Plan:: Oscar is a 46-year-old male with past medical history of recurrent alcohol intoxication and psoriasis presenting to the emergency room via ambulance with abdominal pain, intoxication, and suicide attempt with Prozac. #Alcohol intoxication Recurrent alcohol intoxication CIWA protocol with with librium, Ativan prn Seizure precautions Banana bag x 1 today Mag 1.9 Phos 3.8 Thiamine, MV, and folate #Self-reports history of seizure 3 days ago Possibly related to use of alcohol I would not like to initiate meds for seizure Monitor f/u with neurology #Complains of severe abdominal pain, but lipase is negative, so pancreatitis is unlikely at this time, but not off the differential Monitor #Suicide attempt With Prozac, unknown number of pills, unknown timeline EKG in ER showed normal sinus rhythm, rate 65 bpm, abnormal P wave in leads II, III, and aVF, left atrial enlargement, prolonged WI interval, prolonged QTc, flat T waves in inferior leads, T wave inversions in leads V3 and V4, left ante rior fascicular block, and a regular rhythm Spoke with poison control and they recommended to procure BMP and EtOH every 4 hours until the EtOH is less than 100. EtOH trending down to 60. Observe for serotonin syndrome Suicide precautions [facility] to be consulted for psych eval Patient cannot leave hospital due to suicide attempt before psych eval #COVID-19 positive Requiring 1 L of oxygen as desaturates quickly with activity EKG showed left anterior fascicular block and left atrial enlargement Dexamethasone 6 mg for 10 days ending on 08/21/2021 Remdesivir started yesterday Lovenox 80mg sc Q12hrs CTA ordered Echo ordered Airborne, droplet, and contact precautions Place in negative pressure room CBC, CMP, and CRP daily #Psoriasis, severe Starting dexamethasone 4 COVID-19, which should help his skin condition Continue home meds Diet: General DVT: Lovenox, prophylactic dose Disposition: Safe alcohol withdrawal and psych eval
[2021-08-12 12:07] LABS: ANION GAP 12.9 mEq/L (7-13); CHLORIDE,CL 102 mmol/L (98-107); SODIUM,NA 136 mmol/L (136-145)
[2021-08-12 17:41] LABS: CHLORIDE,CL 100 mmol/L (98-107); SODIUM,NA 135 mmol/L (136-145)
[2021-08-12] MEDS: Enoxaparin 80 MG/0.8 ML Syringe SUBCUT SCH (20:16)
[2021-08-12] MEDS: Triamcinolone Acetonide 0.1% Crm 15 GM Tube TOP SCH (20:18)
[2021-08-12] MEDS: Check NICOTINE Patch TRDERM SCH (20:22)
[2021-08-13] MEDS: chlordiazePOXIDE 10 MG Cap PO PRN ×2 (00:41→21:06)
[2021-08-13 06:56] LABS: ANION GAP 11.2 mEq/L (7-13); CHLORIDE,CL 101 mmol/L (98-107); SODIUM,NA 135 mmol/L (136-145)
[2021-08-13] MEDS ORDERED: LORazepam 1 MG Tab PO PRN (07:40)
[2021-08-13] MEDS: Metoprolol Tartrate 25 MG Tab PO SCH ×2 (08:25→21:02)
[2021-08-13] MEDS: Folic Acid 1 MG Tab PO SCH (08:25)
[2021-08-13] MEDS: Thiamine 100 MG Tab PO SCH (08:25)
[2021-08-13] MEDS: Multivitamin Tab PO SCH (08:26)
[2021-08-13] MEDS: Enoxaparin 80 MG/0.8 ML Syringe SUBCUT SCH ×2 (08:26→21:03)
[2021-08-13] MEDS: Dexamethasone 6 MG TABLET PO SCH (08:26)
[2021-08-13] MEDS: Triamcinolone Acetonide 0.1% Crm 15 GM Tube TOP SCH ×2 (08:29→21:06)
[2021-08-13] MEDS: Isopropyl Myristate/Mineral Oil/Water Lotion 240 ML Bottle TOP SCH ×4 (08:31→21:01)
[2021-08-13] MEDS: Nicotine 21 MG/24 Hr Patch TRDERM SCH (08:31)
[2021-08-13] MEDS: REMDESIVIR 100 MG in Sodium Chloride 0.9% 100 ML IV SCH (08:38)
[2021-08-13] MEDS ORDERED: hydrOXYzine HCl 25 MG Tab PO PRN (09:30)
--- NOTE | 2021-08-13 10:28 | PN ---
DATE: 08/13/2021 SUBJECTIVE: The patient is a 46-year-old male with past medical history of recurrent alcohol intoxication and psoriasis, who was admitted with abdominal pain and intoxication with alcohol and suicidal attempt with Prozac. The patient this morning is doing fairly well. He denies any more abdominal pain. Denies any chest pain, shortness of breath. He is complaining though of pruritus from his dry skin. LABORATORY WORKUP: This morning; WBC is 4.3, hemoglobin is 11.2, hematocrit is 34.2, platelet is 405. Comprehensive metabolic panel remarkable for sodium of 135, calcium of 7.5, total protein of 5.7, and albumin is 1.9. The rest of the panel unremarkable. OBJECTIVE: Vital Signs: Blood pressure is 113/73, pulse of 90, respirations 20, temperature of 100.1, and saturation is 94% on room air. Heart: Regular rate and rhythm. No gallops. No rubs. Lungs: Clear. No crackles. No wheezing. Abdomen: Soft, nontender. Bowel sounds positive. Extremities: Negative for any significant pedal edema. Skin: Remarkable for the dry skin and psoriasis and some excoriation. ASSESSMENT AND PLAN: 1. Alcohol intoxication and alcohol abuse. The patient is doing fairly well. We will continue with his alcohol withdrawal protocol. 2. History of seizure. The patient is seizure free again. We will continue to monitor and continue with seizure precaution and continue with the alcohol withdrawal protocol. 3. Suicide attempt with Prozac and the patient has been seen by the crisis unit and the patient is doing fairly well and we will continue to monitor for serotonin syndrome. 4. Coronavirus disease 2019 positive. The patient is asymptomatic, but CAT scan is showing some inflammatory changes. The patient is currently on dexamethasone. He is also on deep vein thrombosis prophylaxis and also on remdesivir. 5. Psoriasis. He is complaining of pruritus. He is already on dexamethasone for his coronavirus disease. This should help with his psoriasis. We will also put him on hydroxyzine for pruritus and we will see how he does. [facility] /[id number]
[2021-08-13] MEDS: Check NICOTINE Patch TRDERM SCH (21:01)
[2021-08-13] MEDS: Sodium Chloride 0.9% 10 ML Syringe FLUSH PRN (21:09)
[2021-08-14 07:18] LABS: ANION GAP 12.5 mEq/L (7-13); CHLORIDE,CL 100 mmol/L (98-107); SODIUM,NA 135 mmol/L (136-145)
[2021-08-14] MEDS: Metoprolol Tartrate 25 MG Tab PO SCH (09:11)
[2021-08-14] MEDS: Multivitamin Tab PO SCH (09:11)
[2021-08-14] MEDS: Thiamine 100 MG Tab PO SCH (09:13)
[2021-08-14] MEDS: Dexamethasone 6 MG TABLET PO SCH (09:13)
[2021-08-14] MEDS: Folic Acid 1 MG Tab PO SCH (09:13)
[2021-08-14] MEDS: Enoxaparin 80 MG/0.8 ML Syringe SUBCUT SCH (09:15)
[2021-08-14] MEDS: Nicotine 21 MG/24 Hr Patch TRDERM SCH (09:15)
[2021-08-14] MEDS: Triamcinolone Acetonide 0.1% Crm 15 GM Tube TOP SCH (09:15)
[2021-08-14] MEDS: REMDESIVIR 100 MG in Sodium Chloride 0.9% 100 ML IV SCH ×2 (09:16→11:42)
[2021-08-14] MEDS: Sodium Chloride 0.9% 10 ML Syringe FLUSH PRN (09:17)
[2021-08-14] MEDS: Isopropyl Myristate/Mineral Oil/Water Lotion 240 ML Bottle TOP SCH ×2 (10:53→14:38)
--- NOTE | 2021-08-14 11:08 | PCM.DCSUM1 ---
Discharge Summary - Hospital Course Free Text/Narrative:: Mr. Crow is a 46-year-old male with a history of chronic alcoholism, depression as well as psoriasis who presented to the hospital for alcohol intoxication using rubbing alcohol and suicidal ideations with Prozac overdose. Patient was also found to incidentally have a positive Covid 19 test without any symptoms. He was placed in a CIWA protocol, he received thiamine ,folate and multivitamins. He also received remdesivir and dexamethasone for the COVID-19. He was seen by the mental health team for his behaviors. Patient was determined to be safe to go home because he denied of having any residual Suicidal. ideations. He has an extensive psoriatic rash and he states he has a cream at home for however I doubt the patient is compliant with this. On 08/14/2021 patient discharged home in stable condition Activity: As tolerated. Persistent will strongly counseled to abstain from alcohol use Physical exam: General: Well-developed male. Awake and alert in no acute distress CVS: S1 is appreciated regular rhythm no murmurs rubs or gallops Lungs: Clear without wheezes Abdomen: Soft obese nontender bowel sounds present Extremities: There is no clubbing, cyanosis or edema. Pulses 2+. Patient has extensive psoriatic rash on all of his extremities and face. Neuro: no focal deficits. No tremors psych: Stable mood and affect. Denies being suicidal. Diagnosis: Stroke: No - Discharge Data Discharge Date: 08/14/21 Discharge Disposition: Home, Self-Care 01 Condition: Stable - Referral to Home Health Primary Care Physician: Jer GODINEZ [place] - Patient Summary/Data Consults: Consultations 08/11/21 16:52 Consult to Case Management/Nail Expert [CONS] Routine PT Evaluation and Treatment [CONS] Routine - Discharge Plan *PRESCRIPTION DRUG MONITORING PROGRAM REVIEWED*: No *COPY OF PRESCRIPTION DRUG MONITORING REPORT IN PATIENT RASHMI: Not Applicable Prescriptions/Med Rec: dexAMETHasone [Decadron] 6 mg PO DAILY #7 tablet Home Medications: Home Meds Adalimumab [Humira Pen] 40 mg SQ .[id number] 04/14/21 [History] Hydrophilic Ointment [Aquaphilic Ointment] 1 dose TOP ASDIRECTED PRN 06/20/21 [History] Multivitamin [Multivitamins] 1 tab PO DAILY 06/20/21 [History] Thiamine [Vitamin B-1] 100 mg PO DAILY 06/20/21 [History] Triamcinolone Acetonide [Kenalog 0.1% Crm] 1 dose TOP BID 06/20/21 [History] diphenhydrAMINE [Benadryl] 50 mg PO BID PRN 06/20/21 [History] dexAMETHasone [Decadron] 6 mg PO DAILY #7 tablet 08/14/21 [Rx] Forms: ED Department Discharge Referrals: Jer Garner [Primary Care Provider] - - Discharge Summary/Plan Comment DC Time >30 min.: Yes Total # of Minutes for Discharge Time: 35 mins - Patient Data Vitals - Most Recent: Last Vital Signs Temp 98.9 F 08/14/21 08:00 Pulse 87 08/14/21 09:11 Resp 20 08/14/21 08:00 BP 115/70 08/14/21 09:11 Pulse Ox 96 08/14/21 08:00 Weight - Most Recent: 178 lb I&O - Last 24 hours: Intake & Output 08/13/21 08/14/21 08/14/21 22:59 06:59 14:59 Intake Total 500 200 Balance 500 200 Lab Results - Last 24 hrs: Laboratory Results - last 24 hr 08/14/21 08/14/21 Range/Units 06:05 06:05 WBC 6.0 (5.0-10.0) 10^3/uL RBC 3.83 L (4.6-6.2) 10^6/uL Hgb 11.5 L (14.0-18.0) g/dL Hct 35.2 L (40.0-54.0) % MCV 91.9 (80-100) fL MCH 30.0 (27.0-34.0) pg MCHC 32.7 L (33.0-35.0) g/dL Plt Count 343 (150-450) 10^3/uL Neut % (Auto) 65.1 (42.2-75.2) % Lymph % (Auto) 22.0 (20.5-50.1) % [place] % (Auto) 7.8 (2-8) % Eos % (Auto) 4.3 H (1.0-3.0) % Baso % (Auto) 0.8 (0.0-1.0) % Sodium 135 L (136-145) mmol/L Potassium 4.5 (3.5-5.1) mmol/L Chloride 100 (98-107) mmol/L Carbon Dioxide 27 (21-32) mmol/L Anion Gap 12.5 (7-13) mEq/L BUN 13 (7-18) mg/dL Creatinine 0.65 L (0.70-1.30) mg/dL Est Cr Clr Drug Dosing 138.98 mL/min Estimated GFR (MDRD) > 60 BUN/Creatinine Ratio 20.0 (No establ ref range) Glucose 89 (70-99) mg/dL Calcium 7.4 L (8.5-10.1) mg/dL Total Bilirubin 0.2 (0.2-1.0) mg/dL AST 29 (15-37) U/L ALT 24 (16-63) U/L Alkaline Phosphatase 100 (46-116) U/L C-Reactive Protein < 0.2 (0.0-0.9) mg/dL Total Protein 5.9 L (6.4-8.2) g/dL Albumin 2.0 L (3.4-5.0) g/dL Globulin 3.9 Albumin/Globulin Ratio 0.51 Med Orders - Current: Current Medications Chlordiazepoxide HCl (Chlordiazepoxide 10 Mg Cap) 10 mg PO Q6H PRN PRN Reason: Withdrawal Symptoms Last Admin: 08/13/21 21:06 Dose: 10 mg Documented by: Chlordiazepoxide HCl (Chlordiazepoxide 25 Mg Cap) 25 mg PO Q6H PRN PRN Reason: Withdrawal Symptoms Chlordiazepoxide HCl (Chlordiazepoxide 25 Mg Cap) 50 mg PO Q6H PRN PRN Reason: Withdrawal Symptoms Dexamethasone (Dexamethasone 6 Mg Tablet) 6 mg PO DAILY [facility] Stop: 08/20/21 09:01 Last Admin: 08/14/21 09:13 Dose: 6 mg Documented by: Emollient Ointment (Isopropyl Myristate/Mineral Oil/Water Lotion 240 Ml Bottle) 0 ml TOP QID [facility] Last Admin: 08/14/21 10:53 Dose: 1 applic Documented by: Enoxaparin Sodium (Enoxaparin 80 Mg/0.8 Ml Syringe) 80 mg SUBCUT Q12HR [facility] Last Admin: 08/14/21 09:15 Dose: 80 mg Documented by: Hydralazine HCl (Hydralazine 20 Mg/Ml Sdv) 10 mg IVPUSH Q4H PRN PRN Reason: Hypertension Last Admin: 08/12/21 17:13 Dose: 10 mg Documented by: Hydroxyzine HCl (Hydroxyzine Hcl 25 Mg Tab) 25 mg PO Q4H PRN PRN Reason: pruritus Last Admin: 08/14/21 06:27 Dose: 25 mg Documented by: Remdesivir 100 mg/ Sodium (Chloride) 100 mls @ 100 mls/hr IV Q24H [facility] Stop: 08/15/21 09:59 Last Infusion: 08/13/21 10:20 Dose: Infused Documented by: Lorazepam (Lorazepam 2 Mg/Ml Sdv) 1 mg IVPUSH Q4H PRN PRN Reason: Withdrawal Symptoms Lorazepam (Lorazepam 1 Mg Tab) 0 mg PO Q1H PRN; Protocol PRN Reason: Withdrawal Symptoms Metoprolol Tartrate (Metoprolol Tartrate 5 Mg/5 Ml Sdv) 2.5 mg IVPUSH Q10M PRN PRN Reason: Tachycardia Metoprolol Tartrate (Metoprolol Tartrate 25 Mg Tab) 12.5 mg PO Q12H [facility] Last Admin: 08/14/21 09:11 Dose: 12.5 mg Documented by: Miscellaneous Information (Check Nicotine Patch) 1 ea TRDERM BEDTIME [facility] Last Admin: 08/13/21 21:01 Dose: Not Given Documented by: Multivitamins/Minerals/Vitamin C (Multivitamin Tab) 1 tab PO DAILY [facility] Last Admin: 08/14/21 09:11 Dose: 1 tab Documented by: Nicotine (Nicotine 21 Mg/24 Hr Patch) 21 mg TRDERM DAILY [facility] Last Admin: 08/14/21 09:15 Dose: Not Given Documented by: Sodium Chloride (Sodium Chloride 0.9% 10 Ml Syringe) 10 ml FLUSH ASDIRECTED PRN PRN Reason: Keep Vein Open Last Admin: 08/14/21 09:17 Dose: 10 ml Documented by: Thiamine HCl (Thiamine 100 Mg Tab) 100 mg PO DAILY [facility] Last Admin: 08/14/21 09:13 Dose: 100 mg Documented by: Triamcinolone Acetonide (Triamcinolone Acetonide 0.1% Crm 15 Gm Tube) 0 gm TOP BID [facility] Last Admin: 08/14/21 09:15 Dose: Not Given Documented by: Discontinued Medications Acetaminophen (Acetaminophen 325 Mg Tab) 650 mg PO Q4H PRN PRN Reason: Pain (Mild 1-3)/fever Last Admin: 08/12/21 00:15 Dose: 650 mg Documented by: Enoxaparin Sodium (Enoxaparin 40 Mg/0.4 Ml Syringe) 40 mg SUBCUT DAILY [facility] Last Admin: 08/12/21 08:20 Dose: 40 mg Documented by: Enoxaparin Sodium (Enoxaparin 40 Mg/0.4 Ml Syringe) 40 mg SUBCUT ONETIME ONE Stop: 08/12/21 09:46 Last Admin: 08/12/21 11:01 Dose: 40 mg Documented by: Folic Acid (Folic Acid 1 Mg Tab) 1 mg PO DAILY [facility] Stop: 08/14/21 09:01 Last Admin: 08/14/21 09:13 Dose: 1 mg Documented by: Hydroxyzine HCl (Hydroxyzine Hcl 10 Mg Tab) 10 mg PO ONETIME ONE Stop: 08/11/21 20:43 Last Admin: 08/11/21 21:08 Dose: 10 mg Documented by: Multivitamins/Minerals 10 ml/Thiamine HCl 100 mg/ Folic Acid 1 mg/ Lactated Ringer's 1,011.2 mls @ 999 mls/hr IV .BOLUS ONE Stop: 08/11/21 13:45 Last Admin: 08/11/21 13:29 Dose: 999 mls/hr Documented by: Lactated Ringer's (Ringers, Lactated) 1,000 mls @ 125 mls/hr IV ASDIRECTED YVAN Stop: 08/11/21 21:01 Last Admin: 08/11/21 20:18 Dose: 125 mls/hr Documented by: Remdesivir 200 mg/ Sodium (Chloride) 250 mls @ 250 mls/hr IV ONETIME ONE Stop: 08/11/21 18:00 Last Admin: 08/11/21 18:46 Dose: 250 mls/hr Documented by: Sterile Water (Sterile Water For Injection) Confirm Administered Dose 40 mls @ as directed .ROUTE .STK-MED ONE Stop: 08/11/21 18:23 Last Admin: 08/11/21 18:54 Dose: Not Given Documented by: Multivitamins/Minerals 10 ml/Folic Acid 1 mg/ Thiamine HCl 100 mg/ Lactated Ringer's 1,011.2 mls @ 250 mls/hr IV ONETIME ONE Stop: 08/12/21 13:48 Last Infusion: 08/12/21 20:04 Dose: Infused Documented by: Iopamidol (Iopamidol 755 Mg/Ml 100 Ml Bottle) 100 ml IVPUSH ONETIME ONE Stop: 08/11/21 17:40 Last Admin: 08/11/21 18:32 Dose: 100 ml Documented by: Lorazepam (Lorazepam 2 Mg/Ml Sdv) 0 mg IV TITRATE PRN; Protocol PRN Reason: alcohol withdrawal Last Admin: 08/12/21 03:15 Dose: 2 mg Documented by: Lorazepam (Lorazepam 0.5 Mg Tab) 0 mg PO TITRATE PRN; Protocol PRN Reason: alcohol withdrawal Multivitamins/Minerals/Vitamin C (Multivitamin Tab) 1 tab PO DAILY [facility] Last Admin: 08/12/21 08:17 Dose: 1 tab Documented by: Thiamine HCl (Thiamine 100 Mg Tab) 100 mg PO DAILY [facility] Last Admin: 08/12/21 08:17 Dose: 100 mg Documented by:
[2021-08-14 12:26] VITALS: BP 101/64; PULSE 89
== END 2021-08-14 14:45 | disposition home or self-care (01) ==
LOC: DL.ED 12:34 → DL.MS 16:40
PROVIDERS: ADMIT Family Medicine; ATTEND Hospitalist
DX: T43.222A Poisoning by selective serotonin reuptake inhibitors, intentional self-harm, initial encounter (principal); T49.0X1A Poisoning by local antifungal, anti-infective and anti-inflammatory drugs, accidental (unintentional), initial encounter; L40.9 Psoriasis, unspecified; U07.1 COVID-19; J96.01 Acute respiratory failure with hypoxia; F41.9 Anxiety disorder, unspecified; I10 Essential (primary) hypertension; F17.210 Nicotine dependence, cigarettes, uncomplicated; F10.129 Alcohol abuse with intoxication, unspecified; L30.9 Dermatitis, unspecified; Z91.011 Allergy to milk products; Z91.018 Allergy to other foods; Z88.8 Allergy status to other drugs, medicaments and biological substances; Z79.899 Other long term (current) drug therapy
CPT/HCPCS: 36415; 71260; 80048; 80053; 80143; 80179; 80305; 80307; 81001; 82150; 82248; 83690; 83735; 84100; 85025; 85379; 85610; 85730; 86140; 96365; 96366; 96367; 96372; 96375; 96376; 99285; A9270; G0378; J0360; J1650; J2060; J3411; J7050; J7120; J8540; Q9967; U0002; G0480; J3490

== ENCOUNTER 2021-08-22 22:44 | Inpatient (IN) | payer MEDICARE, MEDICAID ==
[2021-08-22] MEDS ORDERED: Dexamethasone 4 MG/ML SDV IVPUSH ONE (23:14)
[2021-08-22] MEDS ORDERED: LORazepam 2 MG/ML SDV IVPUSH ONE (23:22)
--- NOTE | 2021-08-22 23:33 | CR ---
PROCEDURE INFORMATION: Exam: XR Chest Exam date and time: 08/22/2021 11:14 PM Age: 46 years old Clinical indication: Other: SOB covid +; Additional info: SOB covid + TECHNIQUE: Imaging protocol: XR of the chest. Views: 1 view. COMPARISON: CR Chest 1V Frontal 06/08/2021 8:38 AM FINDINGS: Lungs: Patchy bilateral airspace disease. Pleural spaces: Unremarkable. No pleural effusion. No pneumothorax. Heart/Mediastinum: Unremarkable. No cardiomegaly. Bones/joints: Unremarkable. IMPRESSION: Moderate patchy bilateral airspace disease compatible with pneumonia
[2021-08-22 23:48] LABS: ANION GAP 12.2 mEq/L (7-13); CHLORIDE,CL 105 mmol/L (98-107); SODIUM,NA 140 mmol/L (136-145)
[2021-08-23] MEDS ORDERED: Potassium Chloride 20 MEQ in Premix Bag 1 BAG IV ONE (00:34)
[2021-08-23] MEDS ORDERED: Magnesium Sulfate/Water 2 GM in Premix Bag 1 BAG IV ONE (00:34)
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
[2021-08-23] MEDS ORDERED: Sodium Chloride 0.9% 500 ML IV SCH (01:00)
[2021-08-23] MEDS ORDERED: Potassium Chloride 10 MEQ Tab.ER PO ONE (02:02)
[2021-08-23] MEDS ORDERED: oxyCODONE 5 MG Tab PO PRN (02:07)
[2021-08-23] MEDS ORDERED: Sodium Chloride 0.9% 10 ML Syringe FLUSH PRN (02:07)
[2021-08-23] MEDS ORDERED: Ondansetron 4 MG/2 ML SDV IVPUSH PRN (02:07)
[2021-08-23] MEDS ORDERED: Acetaminophen 325 MG Tab PO PRN (02:07)
[2021-08-23] MEDS ORDERED: DIPHENHYDRAMINE 25 MG PO PRN (02:17)
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
[2021-08-23] MEDS ORDERED: amLODIPine 5 MG Tab PO ONE (03:00)
[2021-08-23 03:01] LABS: AMPHETAMINES,URINE POSITIVE (NEGATIVE); BARBITURATES,URINE NEGATIVE (NEGATIVE); BENZODIAZEPINE,URINE POSITIVE (NEGATIVE); MDMA (ECSTASY), URINE NEGATIVE (NEGATIVE); METHADONE,URINE NEGATIVE (NEGATIVE); METHAMPHETAMINES,URINE POSITIVE (NEGATIVE); OPIATES,URINE NEGATIVE (NEGATIVE); PHENCYCLIDINE,URINE NEGATIVE (NEGATIVE); TCA,URINE NEGATIVE (NEGATIVE)
[2021-08-23 03:02] LABS: OXYCODONE,URINE NEGATIVE (NEGATIVE)
[2021-08-23] MEDS: Docusate Sodium 100 MG Cap PO PRN (03:09)
[2021-08-23] MEDS: Temazepam 15 MG Cap PO PRN ×2 (03:10→21:14)
[2021-08-23] MEDS: Enoxaparin 80 MG/0.8 ML Syringe SUBCUT SCH ×2 (03:10→15:15)
[2021-08-23 07:21] LABS: ANION GAP 12.3 mEq/L (7-13); CHLORIDE,CL 106 mmol/L (98-107); SODIUM,NA 139 mmol/L (136-145)
[2021-08-23] MEDS: Thiamine 100 MG Tab PO SCH (10:00)
[2021-08-23] MEDS: Multivitamins, Therapeutic with Minerals Tab PO SCH (10:00)
[2021-08-23] MEDS: Triamcinolone Acetonide 0.1% Crm 15 GM Tube TOP SCH ×2 (10:00→21:15)
[2021-08-23] MEDS: Dexamethasone 6 MG TABLET PO SCH (10:00)
[2021-08-23] MEDS: Folic Acid 1 MG Tab PO SCH (10:16)
--- NOTE | 2021-08-23 15:01 | US ---
EXAMINATION: Venous Doppler Lwr Ext Bi SEX: Male AGE: 46 years CLINICAL HISTORY: 46-year-old male with abnormally elevated serum D dimer (hospitalized patient is COVID positive). Interpretation: Negative exam. No deep vein thrombosis lower extremities. 1. No sign of intraluminal echogenic thrombus and normal compressibility of the deep veins both lower extremities. 2. Satisfactory augmentation venous waveforms demonstrated respectively in the peroneal/posterior tibial veins of both calves, popliteal veins behind both knees, and proximally in the femoral veins of both thighs/groins. (Prominent lymph node left groin) 3. No popliteal or Lopez's cyst identified lying either knee. 4. No lower extremity hematomas.
[2021-08-23] MEDS: hydrOXYzine HCl 25 MG Tab PO PRN (18:55)
[2021-08-24] MEDS: Enoxaparin 80 MG/0.8 ML Syringe SUBCUT SCH ×2 (02:16→14:23)
[2021-08-24 06:58] LABS: CHLORIDE,CL 102 mmol/L (98-107); SODIUM,NA 136 mmol/L (136-145)
[2021-08-24] MEDS: Dexamethasone 6 MG TABLET PO SCH (08:37)
[2021-08-24] MEDS: Thiamine 100 MG Tab PO SCH (08:37)
[2021-08-24] MEDS: Folic Acid 1 MG Tab PO SCH (08:37)
[2021-08-24] MEDS: Multivitamins, Therapeutic with Minerals Tab PO SCH (08:38)
[2021-08-24] MEDS: Triamcinolone Acetonide 0.1% Crm 15 GM Tube TOP SCH ×2 (08:40→20:51)
[2021-08-24] MEDS ORDERED: amLODIPine 5 MG Tab PO SCH (09:00)
--- NOTE | 2021-08-24 12:48 | PCM.PN ---
- General Info Date of Service: 08/24/21 Admission Dx/Problem (Free Text): Admission Diagnosis/Problem Admission Diagnosis/Problem Hypoxia Subjective Update: last night needed more medications for itching remained on NC oxygen with c/o moderate sob and lightheadedness, worse with getting up associated with cough with sputum but no cp no abd pain eating ok no apparent bleeding Functional Status: Reports: Tolerating Diet - Review of Systems General: Reports: Weakness Pulmonary: Reports: Shortness of Breath, Cough, Sputum Cardiovascular: Denies: Chest Pain, Edema Genitourinary: Denies: Dysuria Neurological: Denies: Confusion - Patient Data Vitals - Most Recent: Last Vital Signs Temp 97.2 F 08/24/21 11:25 Pulse 95 08/24/21 11:25 Resp 23 H 08/24/21 11:25 BP 110/86 08/24/21 11:25 Pulse Ox 96 08/24/21 11:25 Weight - Most Recent: 178 lb I&O - Last 24 Hours: Intake & Output 08/23/21 08/24/21 08/24/21 22:59 06:59 14:59 Intake Total 600 Output Total 500 Balance 600 -500 Lab Results Last 24 Hours: Laboratory Results - last 24 hr 08/23/21 08/24/21 08/24/21 Range/Units 02:04 06:14 06:14 WBC 10.3 H (5.0-10.0) 10^3/uL RBC 3.97 L (4.6-6.2) 10^6/uL Hgb 11.9 L (14.0-18.0) g/dL Hct 36.6 L (40.0-54.0) % MCV 92.2 (80-100) fL MCH 30.0 (27.0-34.0) pg MCHC 32.5 L (33.0-35.0) g/dL Plt Count 283 (150-450) 10^3/uL Neut % (Auto) 72.8 (42.2-75.2) % Lymph % (Auto) 18.5 L (20.5-50.1) % Haakon % (Auto) 6.5 (2-8) % Eos % (Auto) 2.0 (1.0-3.0) % Baso % (Auto) 0.2 (0.0-1.0) % D-Dimer, Quantitative 2950 H (0-400) ng/mL Sodium (136-145) mmol/L Potassium (3.5-5.1) mmol/L Chloride (98-107) mmol/L Carbon Dioxide (21-32) mmol/L Anion Gap (7-13) mEq/L BUN (7-18) mg/dL Creatinine (0.70-1.30) mg/dL Est Cr Clr Drug Dosing mL/min Estimated GFR (MDRD) Glucose (70-99) mg/dL Calcium (8.5-10.1) mg/dL Phosphorus (2.6-4.7) mg/dL Magnesium (1.8-2.4) mg/dL Total Bilirubin (0.2-1.0) mg/dL Direct Bilirubin (0.0-0.2) mg/dL Indirect Bilirubin AST (15-37) U/L ALT (16-63) U/L Alkaline Phosphatase (46-116) U/L Total Protein (6.4-8.2) g/dL Albumin (3.4-5.0) g/dL Globulin Albumin/Globulin Ratio Procalcitonin 0.06 ng/mL 08/24/21 Range/Units 06:14 WBC (5.0-10.0) 10^3/uL RBC (4.6-6.2) 10^6/uL Hgb (14.0-18.0) g/dL Hct (40.0-54.0) % MCV (80-100) fL MCH (27.0-34.0) pg MCHC (33.0-35.0) g/dL Plt Count (150-450) 10^3/uL Neut % (Auto) (42.2-75.2) % Lymph % (Auto) (20.5-50.1) % Haakon % (Auto) (2-8) % Eos % (Auto) (1.0-3.0) % Baso % (Auto) (0.0-1.0) % D-Dimer, Quantitative (0-400) ng/mL Sodium 136 (136-145) mmol/L Potassium 4.0 (3.5-5.1) mmol/L Chloride 102 (98-107) mmol/L Carbon Dioxide 26 (21-32) mmol/L Anion Gap 12.0 (7-13) mEq/L BUN 11 (7-18) mg/dL Creatinine 0.65 L (0.70-1.30) mg/dL Est Cr Clr Drug Dosing 143.50 mL/min Estimated GFR (MDRD) > 60 Glucose 97 (70-99) mg/dL Calcium 7.3 L (8.5-10.1) mg/dL Phosphorus 2.1 L (2.6-4.7) mg/dL Magnesium 1.9 (1.8-2.4) mg/dL Total Bilirubin 0.2 (0.2-1.0) mg/dL Direct Bilirubin < 0.1 (0.0-0.2) mg/dL Indirect Bilirubin 0.70185 AST 25 (15-37) U/L ALT 24 (16-63) U/L Alkaline Phosphatase 148 H (46-116) U/L Total Protein 6.2 L (6.4-8.2) g/dL Albumin 1.9 L (3.4-5.0) g/dL Globulin 4.3 Albumin/Globulin Ratio 0.44 Procalcitonin ng/mL Sammy Results Last 24 Hours: Microbiology 08/22/21 23:05 Aerobic Blood Culture - Preliminary Blood NO GROWTH AFTER 1 DAY Anaerobic Blood Culture - Preliminary NO GROWTH AFTER 1 DAY Med Orders - Current: Current Medications Acetaminophen (Acetaminophen 325 Mg Tab) 650 mg PO Q4H PRN PRN Reason: Pain (Mild 1-3)/fever Dexamethasone (Dexamethasone 6 Mg Tablet) 6 mg PO DAILY@0800 [facility] Last Admin: 08/24/21 08:37 Dose: 6 mg Documented by: Docusate Sodium (Docusate Sodium 100 Mg Cap) 100 mg PO BID PRN PRN Reason: Constipation Last Admin: 08/23/21 03:09 Dose: 100 mg Documented by: Enoxaparin Sodium (Enoxaparin 80 Mg/0.8 Ml Syringe) 80 mg SUBCUT Q12H [facility] Last Admin: 08/24/21 02:16 Dose: 80 mg Documented by: Folic Acid (Folic Acid 1 Mg Tab) 1 mg PO DAILY [facility] Last Admin: 08/24/21 08:37 Dose: 1 mg Documented by: Hydroxyzine HCl (Hydroxyzine Hcl 25 Mg Tab) 25 mg PO Q6H PRN PRN Reason: Itching Last Admin: 08/23/21 18:55 Dose: 25 mg Documented by: Influenza Virus Vaccine (Pharmacy To Dose - Influenza Vaccine) 1 each IM DAILY [facility] Last Admin: 08/24/21 08:44 Dose: Not Given Documented by: Lorazepam (Lorazepam 1 Mg Tab) 1 mg PO Q6H PRN PRN Reason: Anxiety Multivitamins/Minerals (Multivitamins, Therapeutic With Minerals Tab) 1 tab PO WITHBREAKFAST [facility] Last Admin: 08/24/21 08:38 Dose: 1 tab Documented by: Ondansetron HCl (Ondansetron 4 Mg/2 Ml Sdv) 4 mg IVPUSH Q6H PRN PRN Reason: Nausea/Vomiting Oxycodone HCl (Oxycodone 5 Mg Tab) 5 mg PO Q4H PRN PRN Reason: Pain (moderate 4-6) Sodium Chloride (Sodium Chloride 0.9% 10 Ml Syringe) 10 ml FLUSH ASDIRECTED PRN PRN Reason: Keep Vein Open Sodium Phosphate (Phosphorus #1 250 Mg Tab) 250 mg PO QID [facility] Stop: 08/24/21 21:01 Temazepam (Temazepam 15 Mg Cap) 15 mg PO BEDTIME PRN PRN Reason: Sleep Last Admin: 08/23/21 21:14 Dose: 15 mg Documented by: Thiamine HCl (Thiamine 100 Mg Tab) 100 mg PO DAILY [facility] Last Admin: 08/24/21 08:37 Dose: 100 mg Documented by: Triamcinolone Acetonide (Triamcinolone Acetonide 0.1% Crm 15 Gm Tube) 0 gm TOP BID [facility] Last Admin: 08/24/21 08:40 Dose: Not Given Documented by: Discontinued Medications Amlodipine Besylate (Amlodipine 5 Mg Tab) 5 mg PO DAILY [facility] Amlodipine Besylate (Amlodipine 5 Mg Tab) 5 mg PO ONETIME ONE Stop: 08/23/21 03:01 Last Admin: 08/23/21 03:09 Dose: 5 mg Documented by: Dexamethasone (Dexamethasone 4 Mg/Ml Sdv) 6 mg IVPUSH ONETIME ONE Stop: 08/22/21 23:15 Last Admin: 08/22/21 23:26 Dose: 6 mg Documented by: Magnesium Sulfate 2 gm/ Premix 50 mls @ 25 mls/hr IV ONETIME ONE Stop: 08/23/21 02:33 Last Admin: 08/23/21 00:47 Dose: 25 mls/hr Documented by: Potassium Chloride 20 meq/ (Premix) 100 mls @ 50 mls/hr IV ONETIME ONE Stop: 08/23/21 02:33 Last Admin: 08/23/21 00:46 Dose: 50 mls/hr Documented by: Sodium Chloride (Normal Saline) 500 mls @ 25 mls/hr IV .BOLUS YVAN Last Admin: 08/23/21 00:56 Dose: 25 mls/hr Documented by: Lorazepam (Lorazepam 2 Mg/Ml Sdv) 1 mg IVPUSH ONETIME ONE Stop: 08/22/21 23:23 Last Admin: 08/22/21 23:29 Dose: 1 mg Documented by: Non-Formulary Medication (Diphenhydramine [Benadryl]) 50 mg PO BID PRN PRN Reason: itchiness Potassium Chloride (Potassium Chloride 10 Meq Tab.Er) 40 meq PO ONETIME ONE Stop: 08/23/21 02:03 Last Admin: 08/23/21 03:09 Dose: 40 meq Documented by: - Exam General: Alert, Oriented Neck: Supple Lungs: Clear to Auscultation, Normal Respiratory Effort Cardiovascular: Regular Rate, Regular Rhythm GI/Abdominal Exam: Normal Bowel Sounds, Soft, Non-Tender Extremities: No Pedal Edema - Patient Data Lab Results Last 24 hrs: Laboratory Results - last 24 hr 08/23/21 08/24/21 08/24/21 Range/Units 02:04 06:14 06:14 WBC 10.3 H (5.0-10.0) 10^3/uL RBC 3.97 L (4.6-6.2) 10^6/uL Hgb 11.9 L (14.0-18.0) g/dL Hct 36.6 L (40.0-54.0) % MCV 92.2 (80-100) fL MCH 30.0 (27.0-34.0) pg MCHC 32.5 L (33.0-35.0) g/dL Plt Count 283 (150-450) 10^3/uL Neut % (Auto) 72.8 (42.2-75.2) % Lymph % (Auto) 18.5 L (20.5-50.1) % Haakon % (Auto) 6.5 (2-8) % Eos % (Auto) 2.0 (1.0-3.0) % Baso % (Auto) 0.2 (0.0-1.0) % D-Dimer, Quantitative 2950 H (0-400) ng/mL Sodium (136-145) mmol/L Potassium (3.5-5.1) mmol/L Chloride (98-107) mmol/L Carbon Dioxide (21-32) mmol/L Anion Gap (7-13) mEq/L BUN (7-18) mg/dL Creatinine (0.70-1.30) mg/dL Est Cr Clr Drug Dosing mL/min Estimated GFR (MDRD) Glucose (70-99) mg/dL Calcium (8.5-10.1) mg/dL Phosphorus (2.6-4.7) mg/dL Magnesium (1.8-2.4) mg/dL Total Bilirubin (0.2-1.0) mg/dL Direct Bilirubin (0.0-0.2) mg/dL Indirect Bilirubin AST (15-37) U/L ALT (16-63) U/L Alkaline Phosphatase (46-116) U/L Total Protein (6.4-8.2) g/dL Albumin (3.4-5.0) g/dL Globulin Albumin/Globulin Ratio Procalcitonin 0.06 ng/mL 08/24/21 Range/Units 06:14 WBC (5.0-10.0) 10^3/uL RBC (4.6-6.2) 10^6/uL Hgb (14.0-18.0) g/dL Hct (40.0-54.0) % MCV (80-100) fL MCH (27.0-34.0) pg MCHC (33.0-35.0) g/dL Plt Count (150-450) 10^3/uL Neut % (Auto) (42.2-75.2) % Lymph % (Auto) (20.5-50.1) % Haakon % (Auto) (2-8) % Eos % (Auto) (1.0-3.0) % Baso % (Auto) (0.0-1.0) % D-Dimer, Quantitative (0-400) ng/mL Sodium 136 (136-145) mmol/L Potassium 4.0 (3.5-5.1) mmol/L Chloride 102 (98-107) mmol/L Carbon Dioxide 26 (21-32) mmol/L Anion Gap 12.0 (7-13) mEq/L BUN 11 (7-18) mg/dL Creatinine 0.65 L (0.70-1.30) mg/dL Est Cr Clr Drug Dosing 143.50 mL/min Estimated GFR (MDRD) > 60 Glucose 97 (70-99) mg/dL Calcium 7.3 L (8.5-10.1) mg/dL Phosphorus 2.1 L (2.6-4.7) mg/dL Magnesium 1.9 (1.8-2.4) mg/dL Total Bilirubin 0.2 (0.2-1.0) mg/dL Direct Bilirubin < 0.1 (0.0-0.2) mg/dL Indirect Bilirubin 0.25532 AST 25 (15-37) U/L ALT 24 (16-63) U/L Alkaline Phosphatase 148 H (46-116) U/L Total Protein 6.2 L (6.4-8.2) g/dL Albumin 1.9 L (3.4-5.0) g/dL Globulin 4.3 Albumin/Globulin Ratio 0.44 Procalcitonin ng/mL Result Diagrams: 08/24/21 06:14 08/24/21 06:14 Sammy Results Last 24 hrs: Microbiology 08/22/21 23:05 Aerobic Blood Culture - Preliminary Blood NO GROWTH AFTER 1 DAY Anaerobic Blood Culture - Preliminary NO GROWTH AFTER 1 DAY Sepsis Event Note - Evaluation Sepsis Screening Result: No Definite Risk - Focused Exam Vital Signs: Vital Signs Temp Pulse Resp BP Pulse Ox Pulse Ox 08/24/21 11:25 97.2 F 95 23 H 110/86 96 08/24/21 07:22 97.5 F 104 H 24 H 121/96 H 93 L 08/24/21 04:00 76 96 08/24/21 02:07 94 L - Problem List & Annotations (1) Hypokalemia SNOMED Code(s): 91778527 Code(s): E87.6 - HYPOKALEMIA Status: Acute Current Visit: Yes (2) Hypomagnesemia SNOMED Code(s): 356316308 Code(s): E83.42 - HYPOMAGNESEMIA Status: Acute Current Visit: Yes (3) Pneumonia due to COVID-19 virus SNOMED Code(s): 708815495053985225 Code(s): U07.1 - COVID-19; J12.82 - PNEUMONIA DUE TO CORONAVIRUS DISEASE 2019 Status: Acute Current Visit: Yes (4) Acute respiratory failure with hypoxia SNOMED Code(s): 62585986, 710343111 Code(s): J96.01 - ACUTE RESPIRATORY FAILURE WITH HYPOXIA Status: Acute Priority: High Current Visit: No - Problem List Review Problem List Initiated/Reviewed/Updated: Yes - My Orders Last 24 Hours: My Active Orders 08/23/21 15:51 hydrOXYzine HCL [Atarax] 25 mg PO Q6H PRN 08/24/21 06:14 PROCALCITONIN [REF] AM 08/24/21 11:45 Chest PE [Ang Chest] [CT] Routine 08/24/21 13:00 Phosphorus #1 [Neutra-Phos] 250 mg PO QID 08/25/21 05:00 MAGNESIUM [CHEM] DAILY 08/25/21 05:11 BASIC METABOLIC PANEL,BMP [CHEM] AM CBC WITH AUTO DIFF [HEME] AM DD [D-DIMER QUANTITATIVE] [COAG] AM HEPATIC FUNCTION PANEL,HFP [CHEM] AM PHOSPHORUS [CHEM] AM PROCALCITONIN [REF] AM 08/26/21 05:00 MAGNESIUM [CHEM] DAILY 08/26/21 05:11 BASIC METABOLIC PANEL,BMP [CHEM] AM CBC WITH AUTO DIFF [HEME] AM DD [D-DIMER QUANTITATIVE] [COAG] AM HEPATIC FUNCTION PANEL,HFP [CHEM] AM PHOSPHORUS [CHEM] AM PROCALCITONIN [REF] AM 08/27/21 05:00 MAGNESIUM [CHEM] DAILY 08/27/21 05:11 BASIC METABOLIC PANEL,BMP [CHEM] AM CBC WITH AUTO DIFF [HEME] AM HEPATIC FUNCTION PANEL,HFP [CHEM] AM PHOSPHORUS [CHEM] AM 08/28/21 05:11 BASIC METABOLIC PANEL,BMP [CHEM] AM CBC WITH AUTO DIFF [HEME] AM 08/29/21 05:11 BASIC METABOLIC PANEL,BMP [CHEM] AM CBC WITH AUTO DIFF [HEME] AM - Plan Plan:: Recently hospitalized when presented with suicide attempt with prozac overdose, alcohol intoxication. Was found to be covid positive on that admission on 08/11 without apparent symptoms. Required oxygen on admission. Treated with remdesivir (4 days), dexamethasone. Presented with sob. Says he has not been drinking since discharge. He said his oximeter showed oxygen sats < 90% Acute hypoxemic respiratory failure Hypoxemia noted on admission in er 86% on RA Will supplement oxygen as needed currently on 3.4 l/min NC - will taper as possible Acute covid 19 pneumonia Vaccination status: Symptom onset: asymptomatic at the time of diagnosis Covid test positive: 08/11/21 Treat with dexamethasone Treat with mvi /vit d Follow daily cbc, bmp, trop, procal, ddimer Evaluations for concurrent bacterial pneumonia: Procalcitonin: pending c/o cough with sputum and has leukocytosis start ceftriaxone, azithromycin for possible community acquired pneumonia Evaluations for thrombotic complications Ddimer:improved but still significantly increased Prophylaxis: use therapeutic lovenox Has single kidney careful with contrast b/l LE US r/o VDT was negative obtain ct chest r/o PE Hypokalemia, hypomagnesemia Will replace, recheck in AM Htn Treat with norvasc amphetamine use Code status: discussed on admission : full
[2021-08-24] MEDS: cefTRIAXone 1 GM in Sodium Chloride 0.9% 50 ML IV SCH (13:45)
[2021-08-24] MEDS: Phosphorus #1 250 MG Tab PO SCH ×3 (13:45→20:51)
[2021-08-24] MEDS: Azithromycin 500 MG in Sodium Chloride 0.9% 250 ML IV SCH (14:20)
[2021-08-24] MEDS ORDERED: Iopamidol 755 Mg/ML 100 ML Bottle IVPUSH ONE (16:44)
--- NOTE | 2021-08-24 17:18 | CT ---
EXAMINATION: Chest w Cont SEX: Male AGE: 46 years CLINICAL HISTORY: 46-year-old hospitalized male with elevated serum D dimer (2950) and shortness of breath who has tested COVID Positive. Negative lower extremity ultrasound exam for DVT. Comparison CT chest 11 August with serum D dimer 1620 revealed "no evidence of pulmonary embolism to the segmental level; small right pleural effusion; right middle lobe opacities compatible with infection". Scan technique: Volume acquisition of data from the chest (bony thorax, lungs and mediastinum) obtained during the intravenous administration of 68 cc nonionic Isovue contrast at 5 cc/s via injector while patient was lying supine on the Siemens multislice scanner [place], [place]. All data archived in the PACS system for storage, reformatting axial/sagittal/coronal planes and study. Interpretation: Abnormal. 1. Intraluminal filling defects (thrombus) involving the second tier pulmonary artery segments right middle lobe (RML). Some pleural reactive scarring posteriorly on the right but no residual dependent pleural effusions. 2. *Extensive, new "groundglass", interstitial lung densities coalesced throughout both lung almanza (predominantly lower lobes and right lung greater than left). No air bronchograms. Appearance consistent with the viral Covid 19 pneumonia. 3. No lung mass or hilar/mediastinal lymphadenopathy. 4. Normal cardiac silhouette (size and configuration). No vascular congestion or alveolar edema. No pleural effusions. 5. Osteopenia; insufficiency fractures T8 and 9; hypertrophic spondylosis mid dorsal spine. 6. No pneumothorax or pneumomediastinum. Midline tracheal bronchial airway unremarkable. No subdiaphragmatic air. 7. No cystic or bullous emphysematous lesions. No air trapping. 8. Ectasia normal caliber thoracic aorta. Upper abdominal viscera unremarkable. 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 No sign of lung malignancy, heart failure or alveolar consolidation.
[2021-08-25] MEDS: Temazepam 15 MG Cap PO PRN (01:15)
[2021-08-25 07:15] LABS: ANION GAP 13.3 mEq/L (7-13); CHLORIDE,CL 104 mmol/L (98-107); SODIUM,NA 136 mmol/L (136-145)
[2021-08-25] MEDS ORDERED: Enoxaparin 80 MG/0.8 ML Syringe SUBCUT SCH (09:00)
[2021-08-25] MEDS: Folic Acid 1 MG Tab PO SCH (09:06)
[2021-08-25] MEDS: Docusate Sodium 100 MG Cap PO PRN (09:06)
[2021-08-25] MEDS: Triamcinolone Acetonide 0.1% Crm 15 GM Tube TOP SCH ×2 (09:09→21:17)
[2021-08-25] MEDS: Dexamethasone 6 MG TABLET PO SCH (09:09)
[2021-08-25] MEDS: Multivitamins, Therapeutic with Minerals Tab PO SCH (10:33)
[2021-08-25] MEDS: Thiamine 100 MG Tab PO SCH (10:33)
--- NOTE | 2021-08-25 12:42 | PCM.PN ---
- General Info Date of Service: 08/25/21 Admission Dx/Problem (Free Text): Admission Diagnosis/Problem Admission Diagnosis/Problem Hypoxia Subjective Update: feeling better more alert and engaging remained on NC oxygen with c/o moderate sob and lightheadedness, worse with getting up associated with cough with sputum but no cp no abd pain no apparent bleeding Functional Status: Reports: Pain Controlled, Tolerating Diet - Review of Systems General: Reports: Weakness. Denies: Fever Pulmonary: Reports: Shortness of Breath Cardiovascular: Denies: Chest Pain, Edema Neurological: Denies: Confusion - Patient Data Vitals - Most Recent: Last Vital Signs Temp 98.5 F 08/25/21 11:38 Pulse 77 08/25/21 11:38 Resp 20 08/25/21 11:38 BP 100/72 08/25/21 11:38 Pulse Ox 96 08/25/21 11:38 Weight - Most Recent: 178 lb I&O - Last 24 Hours: Intake & Output 08/24/21 08/25/21 08/25/21 22:59 06:59 14:59 Intake Total 700 Output Total 350 700 Balance 350 -700 Lab Results Last 24 Hours: Laboratory Results - last 24 hr 08/24/21 08/25/21 08/25/21 Range/Units 06:14 06:40 06:40 WBC 10.2 H (5.0-10.0) 10^3/uL RBC 3.97 L (4.6-6.2) 10^6/uL Hgb 11.9 L (14.0-18.0) g/dL Hct 36.2 L (40.0-54.0) % MCV 91.2 (80-100) fL MCH 30.0 (27.0-34.0) pg MCHC 32.9 L (33.0-35.0) g/dL Plt Count 333 (150-450) 10^3/uL Neut % (Auto) 75.4 H (42.2-75.2) % Lymph % (Auto) 13.9 L (20.5-50.1) % [place] % (Auto) 6.8 (2-8) % Eos % (Auto) 3.7 H (1.0-3.0) % Baso % (Auto) 0.2 (0.0-1.0) % Add Manual Diff D-Dimer, Quantitative 3450 H (0-400) ng/mL Sodium (136-145) mmol/L Potassium (3.5-5.1) mmol/L Chloride (98-107) mmol/L Carbon Dioxide (21-32) mmol/L Anion Gap (7-13) mEq/L BUN (7-18) mg/dL Creatinine (0.70-1.30) mg/dL Est Cr Clr Drug Dosing mL/min Estimated GFR (MDRD) Glucose (70-99) mg/dL Calcium (8.5-10.1) mg/dL Phosphorus (2.6-4.7) mg/dL Magnesium (1.8-2.4) mg/dL Total Bilirubin (0.2-1.0) mg/dL Direct Bilirubin (0.0-0.2) mg/dL Indirect Bilirubin AST (15-37) U/L ALT (16-63) U/L Alkaline Phosphatase (46-116) U/L Total Protein (6.4-8.2) g/dL Albumin (3.4-5.0) g/dL Globulin Albumin/Globulin Ratio Procalcitonin 0.05 ng/mL 08/25/21 08/25/21 Range/Units 06:40 06:40 WBC (5.0-10.0) 10^3/uL RBC (4.6-6.2) 10^6/uL Hgb (14.0-18.0) g/dL Hct (40.0-54.0) % MCV (80-100) fL MCH (27.0-34.0) pg MCHC (33.0-35.0) g/dL Plt Count (150-450) 10^3/uL Neut % (Auto) (42.2-75.2) % Lymph % (Auto) (20.5-50.1) % [place] % (Auto) (2-8) % Eos % (Auto) (1.0-3.0) % Baso % (Auto) (0.0-1.0) % Add Manual Diff D-Dimer, Quantitative (0-400) ng/mL Sodium 136 (136-145) mmol/L Potassium 4.3 (3.5-5.1) mmol/L Chloride 104 (98-107) mmol/L Carbon Dioxide 23 (21-32) mmol/L Anion Gap 13.3 H (7-13) mEq/L BUN 13 (7-18) mg/dL Creatinine 0.65 L (0.70-1.30) mg/dL Est Cr Clr Drug Dosing 143.50 mL/min Estimated GFR (MDRD) > 60 Glucose 99 (70-99) mg/dL Calcium 7.4 L (8.5-10.1) mg/dL Phosphorus 3.8 (2.6-4.7) mg/dL Magnesium 2.2 (1.8-2.4) mg/dL Total Bilirubin 0.2 (0.2-1.0) mg/dL Direct Bilirubin 0.1 (0.0-0.2) mg/dL Indirect Bilirubin 0.1 AST 25 (15-37) U/L ALT 27 (16-63) U/L Alkaline Phosphatase 128 H (46-116) U/L Total Protein 6.3 L (6.4-8.2) g/dL Albumin 2.0 L (3.4-5.0) g/dL Globulin 4.3 Albumin/Globulin Ratio 0.47 Procalcitonin ng/mL Sammy Results Last 24 Hours: Microbiology 08/22/21 23:05 Aerobic Blood Culture - Preliminary Blood NO GROWTH AFTER 2 DAYS Anaerobic Blood Culture - Preliminary NO GROWTH AFTER 2 DAYS Med Orders - Current: Current Medications Acetaminophen (Acetaminophen 325 Mg Tab) 650 mg PO Q4H PRN PRN Reason: Pain (Mild 1-3)/fever Dexamethasone (Dexamethasone 6 Mg Tablet) 6 mg PO DAILY@0800 [facility] Last Admin: 08/25/21 09:09 Dose: 6 mg Documented by: Docusate Sodium (Docusate Sodium 100 Mg Cap) 100 mg PO BID PRN PRN Reason: Constipation Last Admin: 08/25/21 09:06 Dose: 100 mg Documented by: Folic Acid (Folic Acid 1 Mg Tab) 1 mg PO DAILY [facility] Last Admin: 08/25/21 09:06 Dose: 1 mg Documented by: Hydroxyzine HCl (Hydroxyzine Hcl 25 Mg Tab) 25 mg PO Q6H PRN PRN Reason: Itching Last Admin: 08/23/21 18:55 Dose: 25 mg Documented by: Azithromycin 500 mg/ Sodium (Chloride) 250 mls @ 250 mls/hr IV Q24H [facility] Last Admin: 08/24/21 14:20 Dose: 250 mls/hr Documented by: Ceftriaxone Sodium 1 gm/ (Sodium Chloride) 50 mls @ 100 mls/hr IV Q24H [facility] Last Admin: 08/24/21 13:45 Dose: 100 mls/hr Documented by: Influenza Virus Vaccine (Pharmacy To Dose - Influenza Vaccine) 1 each IM DAILY [facility] Last Admin: 08/25/21 10:33 Dose: Not Given Documented by: Lorazepam (Lorazepam 1 Mg Tab) 1 mg PO Q6H PRN PRN Reason: Anxiety Multivitamins/Minerals (Multivitamins, Therapeutic With Minerals Tab) 1 tab PO WITHBREAKFAST [facility] Last Admin: 08/25/21 10:33 Dose: 1 tab Documented by: Ondansetron HCl (Ondansetron 4 Mg/2 Ml Sdv) 4 mg IVPUSH Q6H PRN PRN Reason: Nausea/Vomiting Oxycodone HCl (Oxycodone 5 Mg Tab) 5 mg PO Q4H PRN PRN Reason: Pain (moderate 4-6) Sodium Chloride (Sodium Chloride 0.9% 10 Ml Syringe) 10 ml FLUSH ASDIRECTED PRN PRN Reason: Keep Vein Open Temazepam (Temazepam 15 Mg Cap) 15 mg PO BEDTIME PRN PRN Reason: Sleep Last Admin: 08/25/21 01:15 Dose: 15 mg Documented by: Thiamine HCl (Thiamine 100 Mg Tab) 100 mg PO DAILY [facility] Last Admin: 08/25/21 10:33 Dose: 100 mg Documented by: Triamcinolone Acetonide (Triamcinolone Acetonide 0.1% Crm 15 Gm Tube) 0 gm TOP BID [facility] Last Admin: 08/25/21 09:09 Dose: Not Given Documented by: Discontinued Medications Amlodipine Besylate (Amlodipine 5 Mg Tab) 5 mg PO DAILY [facility] Amlodipine Besylate (Amlodipine 5 Mg Tab) 5 mg PO ONETIME ONE Stop: 08/23/21 03:01 Last Admin: 08/23/21 03:09 Dose: 5 mg Documented by: Dexamethasone (Dexamethasone 4 Mg/Ml Sdv) 6 mg IVPUSH ONETIME ONE Stop: 08/22/21 23:15 Last Admin: 08/22/21 23:26 Dose: 6 mg Documented by: Enoxaparin Sodium (Enoxaparin 80 Mg/0.8 Ml Syringe) 80 mg SUBCUT Q12H [facility] Last Admin: 08/24/21 14:23 Dose: 80 mg Documented by: Enoxaparin Sodium (Enoxaparin 80 Mg/0.8 Ml Syringe) 80 mg SUBCUT Q12H [facility] Last Admin: 08/25/21 10:32 Dose: 80 mg Documented by: Magnesium Sulfate 2 gm/ Premix 50 mls @ 25 mls/hr IV ONETIME ONE Stop: 08/23/21 02:33 Last Admin: 08/23/21 00:47 Dose: 25 mls/hr Documented by: Potassium Chloride 20 meq/ (Premix) 100 mls @ 50 mls/hr IV ONETIME ONE Stop: 08/23/21 02:33 Last Admin: 08/23/21 00:46 Dose: 50 mls/hr Documented by: Sodium Chloride (Normal Saline) 500 mls @ 25 mls/hr IV .BOLUS [facility] Last Admin: 08/23/21 00:56 Dose: 25 mls/hr Documented by: Iopamidol (Iopamidol 755 Mg/Ml 100 Ml Bottle) 100 ml IVPUSH ONETIME ONE Stop: 08/24/21 16:45 Last Admin: 08/24/21 17:10 Dose: 100 ml Documented by: Lorazepam (Lorazepam 2 Mg/Ml Sdv) 1 mg IVPUSH ONETIME ONE Stop: 08/22/21 23:23 Last Admin: 08/22/21 23:29 Dose: 1 mg Documented by: Non-Formulary Medication (Diphenhydramine [Benadryl]) 50 mg PO BID PRN PRN Reason: itchiness Potassium Chloride (Potassium Chloride 10 Meq Tab.Er) 40 meq PO ONETIME ONE Stop: 08/23/21 02:03 Last Admin: 08/23/21 03:09 Dose: 40 meq Documented by: Sodium Phosphate (Phosphorus #1 250 Mg Tab) 250 mg PO QID [facility] Stop: 08/24/21 21:01 Last Admin: 08/24/21 20:51 Dose: 250 mg Documented by: - Exam Quality Assessment: Supplemental Oxygen General: Alert, Oriented Lungs: Normal Respiratory Effort, Rhonchi Cardiovascular: Regular Rate, Regular Rhythm GI/Abdominal Exam: Normal Bowel Sounds, Soft, Non-Tender Extremities: No Pedal Edema - Patient Data Lab Results Last 24 hrs: Laboratory Results - last 24 hr 08/24/21 08/25/21 08/25/21 Range/Units 06:14 06:40 06:40 WBC 10.2 H (5.0-10.0) 10^3/uL RBC 3.97 L (4.6-6.2) 10^6/uL Hgb 11.9 L (14.0-18.0) g/dL Hct 36.2 L (40.0-54.0) % MCV 91.2 (80-100) fL MCH 30.0 (27.0-34.0) pg MCHC 32.9 L (33.0-35.0) g/dL Plt Count 333 (150-450) 10^3/uL Neut % (Auto) 75.4 H (42.2-75.2) % Lymph % (Auto) 13.9 L (20.5-50.1) % [place] % (Auto) 6.8 (2-8) % Eos % (Auto) 3.7 H (1.0-3.0) % Baso % (Auto) 0.2 (0.0-1.0) % Add Manual Diff D-Dimer, Quantitative 3450 H (0-400) ng/mL Sodium (136-145) mmol/L Potassium (3.5-5.1) mmol/L Chloride (98-107) mmol/L Carbon Dioxide (21-32) mmol/L Anion Gap (7-13) mEq/L BUN (7-18) mg/dL Creatinine (0.70-1.30) mg/dL Est Cr Clr Drug Dosing mL/min Estimated GFR (MDRD) Glucose (70-99) mg/dL Calcium (8.5-10.1) mg/dL Phosphorus (2.6-4.7) mg/dL Magnesium (1.8-2.4) mg/dL Total Bilirubin (0.2-1.0) mg/dL Direct Bilirubin (0.0-0.2) mg/dL Indirect Bilirubin AST (15-37) U/L ALT (16-63) U/L Alkaline Phosphatase (46-116) U/L Total Protein (6.4-8.2) g/dL Albumin (3.4-5.0) g/dL Globulin Albumin/Globulin Ratio Procalcitonin 0.05 ng/mL 08/25/21 08/25/21 Range/Units 06:40 06:40 WBC (5.0-10.0) 10^3/uL RBC (4.6-6.2) 10^6/uL Hgb (14.0-18.0) g/dL Hct (40.0-54.0) % MCV (80-100) fL MCH (27.0-34.0) pg MCHC (33.0-35.0) g/dL Plt Count (150-450) 10^3/uL Neut % (Auto) (42.2-75.2) % Lymph % (Auto) (20.5-50.1) % [place] % (Auto) (2-8) % Eos % (Auto) (1.0-3.0) % Baso % (Auto) (0.0-1.0) % Add Manual Diff D-Dimer, Quantitative (0-400) ng/mL Sodium 136 (136-145) mmol/L Potassium 4.3 (3.5-5.1) mmol/L Chloride 104 (98-107) mmol/L Carbon Dioxide 23 (21-32) mmol/L Anion Gap 13.3 H (7-13) mEq/L BUN 13 (7-18) mg/dL Creatinine 0.65 L (0.70-1.30) mg/dL Est Cr Clr Drug Dosing 143.50 mL/min Estimated GFR (MDRD) > 60 Glucose 99 (70-99) mg/dL Calcium 7.4 L (8.5-10.1) mg/dL Phosphorus 3.8 (2.6-4.7) mg/dL Magnesium 2.2 (1.8-2.4) mg/dL Total Bilirubin 0.2 (0.2-1.0) mg/dL Direct Bilirubin 0.1 (0.0-0.2) mg/dL Indirect Bilirubin 0.1 AST 25 (15-37) U/L ALT 27 (16-63) U/L Alkaline Phosphatase 128 H (46-116) U/L Total Protein 6.3 L (6.4-8.2) g/dL Albumin 2.0 L (3.4-5.0) g/dL Globulin 4.3 Albumin/Globulin Ratio 0.47 Procalcitonin ng/mL Result Diagrams: 08/25/21 06:40 08/25/21 06:40 Sammy Results Last 24 hrs: Microbiology 08/22/21 23:05 Aerobic Blood Culture - Preliminary Blood NO GROWTH AFTER 2 DAYS Anaerobic Blood Culture - Preliminary NO GROWTH AFTER 2 DAYS Sepsis Event Note - Evaluation Sepsis Screening Result: No Definite Risk - Focused Exam Vital Signs: Vital Signs Temp Pulse Resp BP Pulse Ox Pulse Ox 08/25/21 11:38 98.5 F 77 20 100/72 96 08/25/21 08:00 97.9 F 74 20 117/79 91 L 08/25/21 04:00 77 97 08/25/21 02:00 94 L - Problem List & Annotations (1) Hypokalemia SNOMED Code(s): 11898792 Code(s): E87.6 - HYPOKALEMIA Status: Acute Current Visit: Yes (2) Hypomagnesemia SNOMED Code(s): 286906837 Code(s): E83.42 - HYPOMAGNESEMIA Status: Acute Current Visit: Yes (3) Pneumonia due to COVID-19 virus SNOMED Code(s): 150936898612321901 Code(s): U07.1 - COVID-19; J12.82 - PNEUMONIA DUE TO CORONAVIRUS DISEASE 2019 Status: Acute Current Visit: Yes (4) Acute respiratory failure with hypoxia SNOMED Code(s): 33276680, 019363869 Code(s): J96.01 - ACUTE RESPIRATORY FAILURE WITH HYPOXIA Status: Acute Priority: High Current Visit: No - Problem List Review Problem List Initiated/Reviewed/Updated: Yes - My Orders Last 24 Hours: My Active Orders 08/24/21 13:00 cefTRIAXone [Rocephin] 1 gm Sodium Chloride 0.9% [Normal Saline AdvBag] 50 ml IV Q24H 08/24/21 14:00 Azithromycin [Zithromax] 500 mg Sodium Chloride 0.9% [Normal Saline AdvBag] 250 ml IV Q24H 08/25/21 06:40 PROCALCITONIN [REF] AM 08/25/21 21:00 Apixaban [Eliquis] 10 mg PO BID 08/26/21 05:00 MAGNESIUM [CHEM] DAILY 08/26/21 05:11 BASIC METABOLIC PANEL,BMP [CHEM] AM CBC WITH AUTO DIFF [HEME] AM DD [D-DIMER QUANTITATIVE] [COAG] AM HEPATIC FUNCTION PANEL,HFP [CHEM] AM PHOSPHORUS [CHEM] AM PROCALCITONIN [REF] AM 08/27/21 05:00 MAGNESIUM [CHEM] DAILY 08/27/21 05:11 BASIC METABOLIC PANEL,BMP [CHEM] AM CBC WITH AUTO DIFF [HEME] AM HEPATIC FUNCTION PANEL,HFP [CHEM] AM PHOSPHORUS [CHEM] AM 08/28/21 05:11 BASIC METABOLIC PANEL,BMP [CHEM] AM CBC WITH AUTO DIFF [HEME] AM 08/29/21 05:11 BASIC METABOLIC PANEL,BMP [CHEM] AM CBC WITH AUTO DIFF [HEME] AM - Plan Plan:: Recently hospitalized when presented with suicide attempt with prozac overdose, alcohol intoxication. Was found to be covid positive on that admission on 08/11 without apparent symptoms. Required oxygen on admission. Treated with remdesivir (4 days), dexamethasone. Presented with sob. Says he has not been drinking since discharge. He said his oximeter showed oxygen sats < 90% Acute hypoxemic respiratory failure Hypoxemia noted on admission in er 86% on RA Will supplement oxygen as needed currently on NC - will taper as possible Acute covid 19 pneumonia Vaccination status: Symptom onset: asymptomatic at the time of diagnosis Covid test positive: 08/11/21 Treat with dexamethasone Treat with mvi /vit d Follow daily cbc, bmp, trop, procal, ddimer Evaluations for concurrent bacterial pneumonia: Procalcitonin: pending c/o cough with sputum and has leukocytosis started ceftriaxone, azithromycin for possible community acquired pneumonia Evaluations for thrombotic complications Ddimer:improved but still significantly increased LE US neg for DVT CT CHest showed PE on 08/24 treatment: transition to Apixaban from therapeutic lovenox Hypokalemia, hypomagnesemia replaced Htn Treat with norvasc Code status: discussed on admission : full
[2021-08-25] MEDS: cefTRIAXone 1 GM in Sodium Chloride 0.9% 50 ML IV SCH (13:38)
[2021-08-25] MEDS: Azithromycin 500 MG in Sodium Chloride 0.9% 250 ML IV SCH (13:42)
[2021-08-25] MEDS: LORazepam 1 MG Tab PO PRN (15:36)
[2021-08-25] MEDS: hydrOXYzine HCl 25 MG Tab PO PRN (15:36)
[2021-08-25] MEDS ORDERED: Warfarin 5 MG Tab PO ONE (21:00)
[2021-08-25] MEDS ORDERED: Apixaban 5 MG Tab PO SCH (21:00)
[2021-08-26] MEDS: Temazepam 15 MG Cap PO PRN ×2 (00:27→21:34)
[2021-08-26] MEDS: hydrOXYzine HCl 25 MG Tab PO PRN ×3 (06:41→21:34)
[2021-08-26 07:26] LABS: ANION GAP 13.3 mEq/L (7-13); CHLORIDE,CL 105 mmol/L (98-107); SODIUM,NA 135 mmol/L (136-145)
[2021-08-26] MEDS: Dexamethasone 6 MG TABLET PO SCH (08:55)
[2021-08-26] MEDS: Multivitamins, Therapeutic with Minerals Tab PO SCH (08:55)
[2021-08-26] MEDS: Thiamine 100 MG Tab PO SCH (08:56)
[2021-08-26] MEDS: Folic Acid 1 MG Tab PO SCH (08:56)
[2021-08-26] MEDS: Triamcinolone Acetonide 0.1% Crm 15 GM Tube TOP SCH ×2 (09:00→20:57)
--- NOTE | 2021-08-26 13:23 | PCM.PN ---
- General Info Date of Service: 08/26/21 Admission Dx/Problem (Free Text): Admission Diagnosis/Problem Admission Diagnosis/Problem Hypoxia Subjective Update: feeling better but has episodes of severe anxiety attacks remained on NC oxygen with c/o moderate sob and lightheadedness, worse with getting up associated with diaphoresis no abd pain no apparent bleeding he says he has had bloating from milk he says he had to use epipen in the past - it appears this was due to strawberry and not milk he has had no problem with ie salad dressing, coffee creamer since admission Functional Status: Reports: Pain Controlled, Tolerating Diet - Review of Systems Pulmonary: Reports: Shortness of Breath Cardiovascular: Denies: Chest Pain, Edema Gastrointestinal: Denies: Abdominal Pain Neurological: Denies: Confusion - Patient Data Vitals - Most Recent: Last Vital Signs Temp 98.4 F 08/26/21 08:00 Pulse 91 08/26/21 08:00 Resp 24 H 08/26/21 08:00 BP 112/76 08/26/21 08:00 Pulse Ox 95 08/26/21 08:00 Weight - Most Recent: 178 lb I&O - Last 24 Hours: Intake & Output 08/25/21 08/26/21 08/26/21 22:59 06:59 14:59 Intake Total 600 600 760 Output Total 650 800 Balance 600 -50 -40 Lab Results Last 24 Hours: Laboratory Results - last 24 hr 08/25/21 08/25/21 08/26/21 Range/Units 06:40 18:41 06:50 WBC 11.8 H (5.0-10.0) 10^3/uL RBC 3.71 L (4.6-6.2) 10^6/uL Hgb 11.1 L (14.0-18.0) g/dL Hct 34.5 L (40.0-54.0) % MCV 93.0 (80-100) fL MCH 29.9 (27.0-34.0) pg MCHC 32.2 L (33.0-35.0) g/dL Plt Count 333 (150-450) 10^3/uL Neut % (Auto) 79.0 H (42.2-75.2) % Lymph % (Auto) 11.2 L (20.5-50.1) % Hardin % (Auto) 6.8 (2-8) % Eos % (Auto) 2.7 (1.0-3.0) % Baso % (Auto) 0.3 (0.0-1.0) % Add Manual Diff Yes Neutrophils % (Manual) 79 H (42-75) % Band Neutrophils % 1 % Lymphocytes % (Manual) 15 L (20-50) % Monocytes % (Manual) 2 (2-8) % Eosinophils % (Manual) 3 (1-3) % PT 9.4 (9.0-12.0) SEC INR 0.9 (0.9-1.2) D-Dimer, Quantitative (0-400) ng/mL Sodium (136-145) mmol/L Potassium (3.5-5.1) mmol/L Chloride (98-107) mmol/L Carbon Dioxide (21-32) mmol/L Anion Gap (7-13) mEq/L BUN (7-18) mg/dL Creatinine (0.70-1.30) mg/dL Est Cr Clr Drug Dosing mL/min Estimated GFR (MDRD) Glucose (70-99) mg/dL Calcium (8.5-10.1) mg/dL Phosphorus (2.6-4.7) mg/dL Magnesium (1.8-2.4) mg/dL Total Bilirubin (0.2-1.0) mg/dL Direct Bilirubin (0.0-0.2) mg/dL Indirect Bilirubin AST (15-37) U/L ALT (16-63) U/L Alkaline Phosphatase (46-116) U/L Total Protein (6.4-8.2) g/dL Albumin (3.4-5.0) g/dL Globulin Albumin/Globulin Ratio Procalcitonin 0.06 ng/mL 08/26/21 08/26/21 08/26/21 Range/Units 06:50 06:50 06:50 WBC (5.0-10.0) 10^3/uL RBC (4.6-6.2) 10^6/uL Hgb (14.0-18.0) g/dL Hct (40.0-54.0) % MCV (80-100) fL MCH (27.0-34.0) pg MCHC (33.0-35.0) g/dL Plt Count (150-450) 10^3/uL Neut % (Auto) (42.2-75.2) % Lymph % (Auto) (20.5-50.1) % Hardin % (Auto) (2-8) % Eos % (Auto) (1.0-3.0) % Baso % (Auto) (0.0-1.0) % Add Manual Diff Neutrophils % (Manual) (42-75) % Band Neutrophils % % Lymphocytes % (Manual) (20-50) % Monocytes % (Manual) (2-8) % Eosinophils % (Manual) (1-3) % PT 9.6 (9.0-12.0) SEC INR 1.0 (0.9-1.2) D-Dimer, Quantitative 3060 H (0-400) ng/mL Sodium 135 L (136-145) mmol/L Potassium 4.3 (3.5-5.1) mmol/L Chloride 105 (98-107) mmol/L Carbon Dioxide 21 (21-32) mmol/L Anion Gap 13.3 H (7-13) mEq/L BUN 15 (7-18) mg/dL Creatinine 0.60 L (0.70-1.30) mg/dL Est Cr Clr Drug Dosing 155.46 mL/min Estimated GFR (MDRD) > 60 Glucose 110 H (70-99) mg/dL Calcium 7.5 L (8.5-10.1) mg/dL Phosphorus 3.1 (2.6-4.7) mg/dL Magnesium 2.0 (1.8-2.4) mg/dL Total Bilirubin 0.2 (0.2-1.0) mg/dL Direct Bilirubin 0.1 (0.0-0.2) mg/dL Indirect Bilirubin 0.1 AST 21 (15-37) U/L ALT 31 (16-63) U/L Alkaline Phosphatase 117 H (46-116) U/L Total Protein 6.2 L (6.4-8.2) g/dL Albumin 2.0 L (3.4-5.0) g/dL Globulin 4.2 Albumin/Globulin Ratio 0.48 Procalcitonin ng/mL Sammy Results Last 24 Hours: Microbiology 08/22/21 23:05 Aerobic Blood Culture - Preliminary Blood NO GROWTH AFTER 3 DAYS Anaerobic Blood Culture - Preliminary NO GROWTH AFTER 3 DAYS Med Orders - Current: Current Medications Acetaminophen (Acetaminophen 325 Mg Tab) 650 mg PO Q4H PRN PRN Reason: Pain (Mild 1-3)/fever Dexamethasone (Dexamethasone 6 Mg Tablet) 6 mg PO DAILY@0800 [facility] Last Admin: 08/26/21 08:55 Dose: 6 mg Documented by: Docusate Sodium (Docusate Sodium 100 Mg Cap) 100 mg PO BID PRN PRN Reason: Constipation Last Admin: 08/25/21 09:06 Dose: 100 mg Documented by: Enoxaparin Sodium (Enoxaparin 80 Mg/0.8 Ml Syringe) 80 mg SUBCUT Q12HR [facility] Folic Acid (Folic Acid 1 Mg Tab) 1 mg PO DAILY [facility] Last Admin: 08/26/21 08:56 Dose: 1 mg Documented by: Hydroxyzine HCl (Hydroxyzine Hcl 25 Mg Tab) 25 mg PO Q6H PRN PRN Reason: Itching Last Admin: 08/26/21 06:41 Dose: 25 mg Documented by: Azithromycin 500 mg/ Sodium (Chloride) 250 mls @ 250 mls/hr IV Q24H [facility] Last Infusion: 08/25/21 15:30 Dose: Infused Documented by: Ceftriaxone Sodium 1 gm/ (Sodium Chloride) 50 mls @ 100 mls/hr IV Q24H [facility] Last Infusion: 08/25/21 18:29 Dose: Infused Documented by: Influenza Virus Vaccine (Pharmacy To Dose - Influenza Vaccine) 1 each IM DAILY [facility] Last Admin: 08/26/21 09:00 Dose: Not Given Documented by: Lorazepam (Lorazepam 1 Mg Tab) 1 mg PO Q6H PRN PRN Reason: Anxiety Last Admin: 08/25/21 15:36 Dose: 1 mg Documented by: Multivitamins/Minerals (Multivitamins, Therapeutic With Minerals Tab) 1 tab PO WITHBREAKFAST [facility] Last Admin: 08/26/21 08:55 Dose: 1 tab Documented by: Ondansetron HCl (Ondansetron 4 Mg/2 Ml Sdv) 4 mg IVPUSH Q6H PRN PRN Reason: Nausea/Vomiting Oxycodone HCl (Oxycodone 5 Mg Tab) 5 mg PO Q4H PRN PRN Reason: Pain (moderate 4-6) Sodium Chloride (Sodium Chloride 0.9% 10 Ml Syringe) 10 ml FLUSH ASDIRECTED PRN PRN Reason: Keep Vein Open Temazepam (Temazepam 15 Mg Cap) 15 mg PO BEDTIME PRN PRN Reason: Sleep Last Admin: 08/26/21 00:27 Dose: 15 mg Documented by: Thiamine HCl (Thiamine 100 Mg Tab) 100 mg PO DAILY [facility] Last Admin: 08/26/21 08:56 Dose: 100 mg Documented by: Triamcinolone Acetonide (Triamcinolone Acetonide 0.1% Crm 15 Gm Tube) 0 gm TOP BID [facility] Last Admin: 08/26/21 09:00 Dose: Not Given Documented by: Warfarin Sodium (Pharmacy To Dose - Warfarin) 1 dose .XX ASDIRECTED [facility] Warfarin Sodium (Warfarin 5 Mg Tab) 5 mg PO ONETIME ONE Stop: 08/26/21 14:01 Discontinued Medications Amlodipine Besylate (Amlodipine 5 Mg Tab) 5 mg PO DAILY [facility] Amlodipine Besylate (Amlodipine 5 Mg Tab) 5 mg PO ONETIME ONE Stop: 08/23/21 03:01 Last Admin: 08/23/21 03:09 Dose: 5 mg Documented by: Apixaban (Apixaban 5 Mg Tab) 10 mg PO BID [facility] Dexamethasone (Dexamethasone 4 Mg/Ml Sdv) 6 mg IVPUSH ONETIME ONE Stop: 08/22/21 23:15 Last Admin: 08/22/21 23:26 Dose: 6 mg Documented by: Enoxaparin Sodium (Enoxaparin 80 Mg/0.8 Ml Syringe) 80 mg SUBCUT Q12H [facility] Last Admin: 08/24/21 14:23 Dose: 80 mg Documented by: Enoxaparin Sodium (Enoxaparin 80 Mg/0.8 Ml Syringe) 80 mg SUBCUT Q12H [facility] Last Admin: 08/25/21 10:32 Dose: 80 mg Documented by: Magnesium Sulfate 2 gm/ Premix 50 mls @ 25 mls/hr IV ONETIME ONE Stop: 08/23/21 02:33 Last Admin: 08/23/21 00:47 Dose: 25 mls/hr Documented by: Potassium Chloride 20 meq/ (Premix) 100 mls @ 50 mls/hr IV ONETIME ONE Stop: 08/23/21 02:33 Last Admin: 08/23/21 00:46 Dose: 50 mls/hr Documented by: Sodium Chloride (Normal Saline) 500 mls @ 25 mls/hr IV .BOLUS [facility] Last Admin: 08/23/21 00:56 Dose: 25 mls/hr Documented by: Iopamidol (Iopamidol 755 Mg/Ml 100 Ml Bottle) 100 ml IVPUSH ONETIME ONE Stop: 08/24/21 16:45 Last Admin: 08/24/21 17:10 Dose: 100 ml Documented by: Lorazepam (Lorazepam 2 Mg/Ml Sdv) 1 mg IVPUSH ONETIME ONE Stop: 08/22/21 23:23 Last Admin: 08/22/21 23:29 Dose: 1 mg Documented by: Non-Formulary Medication (Diphenhydramine [Benadryl]) 50 mg PO BID PRN PRN Reason: itchiness Potassium Chloride (Potassium Chloride 10 Meq Tab.Er) 40 meq PO ONETIME ONE Stop: 08/23/21 02:03 Last Admin: 08/23/21 03:09 Dose: 40 meq Documented by: Sodium Phosphate (Phosphorus #1 250 Mg Tab) 250 mg PO QID YVAN Stop: 08/24/21 21:01 Last Admin: 08/24/21 20:51 Dose: 250 mg Documented by: Warfarin Sodium (Warfarin 5 Mg Tab) 5 mg PO ONETIME ONE Stop: 08/25/21 21:01 Last Admin: 08/25/21 21:16 Dose: 5 mg Documented by: - Exam Quality Assessment: Supplemental Oxygen General: Alert, Oriented Neck: Supple Lungs: Normal Respiratory Effort, Rhonchi Cardiovascular: Regular Rate, Regular Rhythm GI/Abdominal Exam: Normal Bowel Sounds, Soft, Non-Tender Extremities: No Pedal Edema - Patient Data Lab Results Last 24 hrs: Laboratory Results - last 24 hr 08/25/21 08/25/21 08/26/21 Range/Units 06:40 18:41 06:50 WBC 11.8 H (5.0-10.0) 10^3/uL RBC 3.71 L (4.6-6.2) 10^6/uL Hgb 11.1 L (14.0-18.0) g/dL Hct 34.5 L (40.0-54.0) % MCV 93.0 (80-100) fL MCH 29.9 (27.0-34.0) pg MCHC 32.2 L (33.0-35.0) g/dL Plt Count 333 (150-450) 10^3/uL Neut % (Auto) 79.0 H (42.2-75.2) % Lymph % (Auto) 11.2 L (20.5-50.1) % Hardin % (Auto) 6.8 (2-8) % Eos % (Auto) 2.7 (1.0-3.0) % Baso % (Auto) 0.3 (0.0-1.0) % Add Manual Diff Yes Neutrophils % (Manual) 79 H (42-75) % Band Neutrophils % 1 % Lymphocytes % (Manual) 15 L (20-50) % Monocytes % (Manual) 2 (2-8) % Eosinophils % (Manual) 3 (1-3) % PT 9.4 (9.0-12.0) SEC INR 0.9 (0.9-1.2) D-Dimer, Quantitative (0-400) ng/mL Sodium (136-145) mmol/L Potassium (3.5-5.1) mmol/L Chloride (98-107) mmol/L Carbon Dioxide (21-32) mmol/L Anion Gap (7-13) mEq/L BUN (7-18) mg/dL Creatinine (0.70-1.30) mg/dL Est Cr Clr Drug Dosing mL/min Estimated GFR (MDRD) Glucose (70-99) mg/dL Calcium (8.5-10.1) mg/dL Phosphorus (2.6-4.7) mg/dL Magnesium (1.8-2.4) mg/dL Total Bilirubin (0.2-1.0) mg/dL Direct Bilirubin (0.0-0.2) mg/dL Indirect Bilirubin AST (15-37) U/L ALT (16-63) U/L Alkaline Phosphatase (46-116) U/L Total Protein (6.4-8.2) g/dL Albumin (3.4-5.0) g/dL Globulin Albumin/Globulin Ratio Procalcitonin 0.06 ng/mL 08/26/21 08/26/21 08/26/21 Range/Units 06:50 06:50 06:50 WBC (5.0-10.0) 10^3/uL RBC (4.6-6.2) 10^6/uL Hgb (14.0-18.0) g/dL Hct (40.0-54.0) % MCV (80-100) fL MCH (27.0-34.0) pg MCHC (33.0-35.0) g/dL Plt Count (150-450) 10^3/uL Neut % (Auto) (42.2-75.2) % Lymph % (Auto) (20.5-50.1) % Hardin % (Auto) (2-8) % Eos % (Auto) (1.0-3.0) % Baso % (Auto) (0.0-1.0) % Add Manual Diff Neutrophils % (Manual) (42-75) % Band Neutrophils % % Lymphocytes % (Manual) (20-50) % Monocytes % (Manual) (2-8) % Eosinophils % (Manual) (1-3) % PT 9.6 (9.0-12.0) SEC INR 1.0 (0.9-1.2) D-Dimer, Quantitative 3060 H (0-400) ng/mL Sodium 135 L (136-145) mmol/L Potassium 4.3 (3.5-5.1) mmol/L Chloride 105 (98-107) mmol/L Carbon Dioxide 21 (21-32) mmol/L Anion Gap 13.3 H (7-13) mEq/L BUN 15 (7-18) mg/dL Creatinine 0.60 L (0.70-1.30) mg/dL Est Cr Clr Drug Dosing 155.46 mL/min Estimated GFR (MDRD) > 60 Glucose 110 H (70-99) mg/dL Calcium 7.5 L (8.5-10.1) mg/dL Phosphorus 3.1 (2.6-4.7) mg/dL Magnesium 2.0 (1.8-2.4) mg/dL Total Bilirubin 0.2 (0.2-1.0) mg/dL Direct Bilirubin 0.1 (0.0-0.2) mg/dL Indirect Bilirubin 0.1 AST 21 (15-37) U/L ALT 31 (16-63) U/L Alkaline Phosphatase 117 H (46-116) U/L Total Protein 6.2 L (6.4-8.2) g/dL Albumin 2.0 L (3.4-5.0) g/dL Globulin 4.2 Albumin/Globulin Ratio 0.48 Procalcitonin ng/mL Result Diagrams: 08/26/21 06:50 08/26/21 06:50 Sammy Results Last 24 hrs: Microbiology 08/22/21 23:05 Aerobic Blood Culture - Preliminary Blood NO GROWTH AFTER 3 DAYS Anaerobic Blood Culture - Preliminary NO GROWTH AFTER 3 DAYS Sepsis Event Note - Evaluation Sepsis Screening Result: No Definite Risk - Focused Exam Vital Signs: Vital Signs Temp Pulse Resp BP Pulse Ox Pulse Ox 08/26/21 08:00 98.4 F 91 24 H 112/76 95 08/26/21 04:00 97.9 F 83 20 119/85 93 L 08/26/21 02:00 95 - Problem List & Annotations (1) Hypokalemia SNOMED Code(s): 87692424 Code(s): E87.6 - HYPOKALEMIA Status: Acute Current Visit: Yes (2) Hypomagnesemia SNOMED Code(s): 961508734 Code(s): E83.42 - HYPOMAGNESEMIA Status: Acute Current Visit: Yes (3) Pneumonia due to COVID-19 virus SNOMED Code(s): 665280330010439920 Code(s): U07.1 - COVID-19; J12.82 - PNEUMONIA DUE TO CORONAVIRUS DISEASE 2019 Status: Acute Current Visit: Yes (4) Acute respiratory failure with hypoxia SNOMED Code(s): 75688147, 419612270 Code(s): J96.01 - ACUTE RESPIRATORY FAILURE WITH HYPOXIA Status: Acute Priority: High Current Visit: No - Problem List Review Problem List Initiated/Reviewed/Updated: Yes - My Orders Last 24 Hours: My Active Orders 08/25/21 16:00 Pharmacy to Dose - Warfarin 1 dose .XX ASDIRECTED 08/26/21 06:50 PROCALCITONIN [REF] AM 08/26/21 14:00 Warfarin [Coumadin] 5 mg PO ONETIME ONE 08/26/21 21:00 Enoxaparin [Lovenox] 80 mg SUBCUT Q12HR 08/27/21 05:00 MAGNESIUM [CHEM] DAILY 08/27/21 05:11 BASIC METABOLIC PANEL,BMP [CHEM] AM CBC WITH AUTO DIFF [HEME] AM HEPATIC FUNCTION PANEL,HFP [CHEM] AM INR,PT,PROTHROMBIN TIME [COAG] AM PHOSPHORUS [CHEM] AM 08/28/21 05:11 BASIC METABOLIC PANEL,BMP [CHEM] AM CBC WITH AUTO DIFF [HEME] AM INR,PT,PROTHROMBIN TIME [COAG] AM 08/29/21 05:11 BASIC METABOLIC PANEL,BMP [CHEM] AM CBC WITH AUTO DIFF [HEME] AM INR,PT,PROTHROMBIN TIME [COAG] AM 08/30/21 05:11 INR,PT,PROTHROMBIN TIME [COAG] AM 08/31/21 05:11 INR,PT,PROTHROMBIN TIME [COAG] AM 09/01/21 05:11 INR,PT,PROTHROMBIN TIME [COAG] AM - Plan Plan:: Recently hospitalized when presented with suicide attempt with prozac overdose, alcohol intoxication. Was found to be covid positive on that admission on 08/11 without apparent symptoms. Required oxygen on admission. Treated with remdesivir (4 days), dexamethasone. Presented with sob. Says he has not been drinking since discharge. He said his oximeter showed oxygen sats < 90% Acute hypoxemic respiratory failure Hypoxemia noted on admission in er 86% on RA Will supplement oxygen as needed currently on NC - will taper as possible Acute covid 19 pneumonia Symptom onset: asymptomatic at the time of diagnosis Covid test positive: 08/11/21 Treat with dexamethasone Treat with mvi /vit d Follow daily cbc, bmp, trop, procal, ddimer Evaluations for concurrent bacterial pneumonia: Procalcitonin: negative c/o cough with sputum and has leukocytosis started ceftriaxone, azithromycin for possible community acquired pneumonia - I will stop that Evaluations for thrombotic complications Ddimer:improved but still significantly increased LE US neg for DVT CT CHest showed PE on 08/24 treatment: per pharmacy Apixaban/xarelto might cross react with mild allergy - although the milk allergy is questionable - more likely lactose intolerance ongoing dexamethasone might make it even more difficult to evaluate for reaction, then might develop adverse effect when off dexa will anticoagulate with coumadin - in the meantime continue therapeutic lovenox Hypokalemia, hypomagnesemia replaced Htn Treat with norvasc Code status: discussed on admission : full
[2021-08-26] MEDS: LORazepam 1 MG Tab PO PRN (13:35)
[2021-08-26] MEDS: cefTRIAXone 1 GM in Sodium Chloride 0.9% 50 ML IV SCH (13:37)
[2021-08-26] MEDS ORDERED: Warfarin 5 MG Tab PO ONE (14:00)
[2021-08-26] MEDS: Enoxaparin 80 MG/0.8 ML Syringe SUBCUT SCH (20:57)
[2021-08-27] MEDS: hydrOXYzine HCl 25 MG Tab PO PRN ×3 (03:53→21:25)
[2021-08-27 07:16] LABS: ANION GAP 12.2 mEq/L (7-13); CHLORIDE,CL 104 mmol/L (98-107); SODIUM,NA 134 mmol/L (136-145)
[2021-08-27] MEDS: Folic Acid 1 MG Tab PO SCH (08:19)
[2021-08-27] MEDS: Dexamethasone 6 MG TABLET PO SCH (08:19)
[2021-08-27] MEDS: Multivitamins, Therapeutic with Minerals Tab PO SCH (08:19)
[2021-08-27] MEDS: Thiamine 100 MG Tab PO SCH (08:19)
[2021-08-27] MEDS: Triamcinolone Acetonide 0.1% Crm 15 GM Tube TOP SCH ×2 (08:20→21:28)
[2021-08-27] MEDS: Enoxaparin 80 MG/0.8 ML Syringe SUBCUT SCH ×2 (08:20→21:24)
[2021-08-27] MEDS: LORazepam 1 MG Tab PO PRN ×2 (09:30→21:25)
[2021-08-27] MEDS ORDERED: Warfarin 5 MG, Warfarin 2.5 MG PO ONE ×2 (14:00)
--- NOTE | 2021-08-27 16:14 | PCM.PN ---
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 - he thinks he would be able to do lovenox injections at home Functional Status: Reports: Pain Controlled, Tolerating Diet - Review of Systems General: Reports: Weakness Pulmonary: Reports: Shortness of Breath (improved on 2 l nc oxygen) Cardiovascular: Denies: Chest Pain, Palpitations, Edema Gastrointestinal: Denies: Abdominal Pain Neurological: Denies: Confusion - Patient Data Vitals - Most Recent: Last Vital Signs Temp 98.6 F 08/27/21 15:55 Pulse 77 08/27/21 15:55 Resp 20 08/27/21 15:55 BP 100/66 08/27/21 15:55 Pulse Ox 93 L 08/27/21 15:55 Weight - Most Recent: 178 lb I&O - Last 24 Hours: Intake & Output 08/27/21 08/27/21 08/27/21 06:59 14:59 22:59 Intake Total 500 2560 Output Total 800 1400 Balance -300 1160 Lab Results Last 24 Hours: Laboratory Results - last 24 hr 08/27/21 08/27/21 08/27/21 Range/Units 06:40 06:40 06:40 WBC 11.9 H (5.0-10.0) 10^3/uL RBC 3.69 L (4.6-6.2) 10^6/uL Hgb 10.9 L (14.0-18.0) g/dL Hct 34.2 L (40.0-54.0) % MCV 92.7 (80-100) fL MCH 29.5 (27.0-34.0) pg MCHC 31.9 L (33.0-35.0) g/dL Plt Count 428 D (150-450) 10^3/uL Neut % (Auto) 80.2 H (42.2-75.2) % Lymph % (Auto) 10.1 L (20.5-50.1) % [place] % (Auto) 7.5 (2-8) % Eos % (Auto) 2.0 (1.0-3.0) % Baso % (Auto) 0.2 (0.0-1.0) % PT 10.5 (9.0-12.0) SEC INR 1.0 (0.9-1.2) Sodium 134 L (136-145) mmol/L Potassium 4.2 (3.5-5.1) mmol/L Chloride 104 (98-107) mmol/L Carbon Dioxide 22 (21-32) mmol/L Anion Gap 12.2 (7-13) mEq/L BUN 17 (7-18) mg/dL Creatinine 0.60 L (0.70-1.30) mg/dL Est Cr Clr Drug Dosing 155.46 mL/min Estimated GFR (MDRD) > 60 Glucose 107 H (70-99) mg/dL Calcium 7.8 L (8.5-10.1) mg/dL Phosphorus 3.4 (2.6-4.7) mg/dL Magnesium 2.0 (1.8-2.4) mg/dL Total Bilirubin 0.2 (0.2-1.0) mg/dL Direct Bilirubin 0.1 (0.0-0.2) mg/dL Indirect Bilirubin 0.1 AST 17 (15-37) U/L ALT 33 (16-63) U/L Alkaline Phosphatase 110 (46-116) U/L Total Protein 6.5 (6.4-8.2) g/dL Albumin 2.2 L (3.4-5.0) g/dL Globulin 4.3 Albumin/Globulin Ratio 0.51 Sammy Results Last 24 Hours: Microbiology 08/22/21 23:05 Aerobic Blood Culture - Preliminary Blood NO GROWTH AFTER 4 DAYS Anaerobic Blood Culture - Preliminary NO GROWTH AFTER 4 DAYS Med Orders - Current: Current Medications Acetaminophen (Acetaminophen 325 Mg Tab) 650 mg PO Q4H PRN PRN Reason: Pain (Mild 1-3)/fever Dexamethasone (Dexamethasone 6 Mg Tablet) 6 mg PO DAILY@0800 [facility] Last Admin: 08/27/21 08:19 Dose: 6 mg Documented by: Docusate Sodium (Docusate Sodium 100 Mg Cap) 100 mg PO BID PRN PRN Reason: Constipation Last Admin: 08/25/21 09:06 Dose: 100 mg Documented by: Enoxaparin Sodium (Enoxaparin 80 Mg/0.8 Ml Syringe) 80 mg SUBCUT Q12HR [facility] Last Admin: 08/27/21 08:20 Dose: 80 mg Documented by: Folic Acid (Folic Acid 1 Mg Tab) 1 mg PO DAILY [facility] Last Admin: 08/27/21 08:19 Dose: 1 mg Documented by: Hydroxyzine HCl (Hydroxyzine Hcl 25 Mg Tab) 25 mg PO Q6H PRN PRN Reason: Itching Last Admin: 08/27/21 09:30 Dose: 25 mg Documented by: Influenza Virus Vaccine (Pharmacy To Dose - Influenza Vaccine) 1 each IM DAILY [facility] Last Admin: 08/27/21 08:20 Dose: Not Given Documented by: Lorazepam (Lorazepam 1 Mg Tab) 1 mg PO Q6H PRN PRN Reason: Anxiety Last Admin: 08/27/21 09:30 Dose: 1 mg Documented by: Multivitamins/Minerals (Multivitamins, Therapeutic With Minerals Tab) 1 tab PO WITHBREAKFAST [facility] Last Admin: 08/27/21 08:19 Dose: 1 tab Documented by: Ondansetron HCl (Ondansetron 4 Mg/2 Ml Sdv) 4 mg IVPUSH Q6H PRN PRN Reason: Nausea/Vomiting Oxycodone HCl (Oxycodone 5 Mg Tab) 5 mg PO Q4H PRN PRN Reason: Pain (moderate 4-6) Sodium Chloride (Sodium Chloride 0.9% 10 Ml Syringe) 10 ml FLUSH ASDIRECTED PRN PRN Reason: Keep Vein Open Temazepam (Temazepam 15 Mg Cap) 15 mg PO BEDTIME PRN PRN Reason: Sleep Last Admin: 08/26/21 21:34 Dose: 15 mg Documented by: Thiamine HCl (Thiamine 100 Mg Tab) 100 mg PO DAILY [facility] Last Admin: 08/27/21 08:19 Dose: 100 mg Documented by: Triamcinolone Acetonide (Triamcinolone Acetonide 0.1% Crm 15 Gm Tube) 0 gm TOP BID [facility] Last Admin: 08/27/21 08:20 Dose: Not Given Documented by: Warfarin Sodium (Pharmacy To Dose - Warfarin) 1 dose .XX ASDIRECTED [facility] Discontinued Medications Amlodipine Besylate (Amlodipine 5 Mg Tab) 5 mg PO DAILY [facility] Amlodipine Besylate (Amlodipine 5 Mg Tab) 5 mg PO ONETIME ONE Stop: 08/23/21 03:01 Last Admin: 08/23/21 03:09 Dose: 5 mg Documented by: Apixaban (Apixaban 5 Mg Tab) 10 mg PO BID [facility] Dexamethasone (Dexamethasone 4 Mg/Ml Sdv) 6 mg IVPUSH ONETIME ONE Stop: 08/22/21 23:15 Last Admin: 08/22/21 23:26 Dose: 6 mg Documented by: Enoxaparin Sodium (Enoxaparin 80 Mg/0.8 Ml Syringe) 80 mg SUBCUT Q12H [facility] Last Admin: 08/24/21 14:23 Dose: 80 mg Documented by: Enoxaparin Sodium (Enoxaparin 80 Mg/0.8 Ml Syringe) 80 mg SUBCUT Q12H [facility] Last Admin: 08/25/21 10:32 Dose: 80 mg Documented by: Magnesium Sulfate 2 gm/ Premix 50 mls @ 25 mls/hr IV ONETIME ONE Stop: 08/23/21 02:33 Last Admin: 08/23/21 00:47 Dose: 25 mls/hr Documented by: Potassium Chloride 20 meq/ (Premix) 100 mls @ 50 mls/hr IV ONETIME ONE Stop: 08/23/21 02:33 Last Admin: 08/23/21 00:46 Dose: 50 mls/hr Documented by: Sodium Chloride (Normal Saline) 500 mls @ 25 mls/hr IV .BOLUS [facility] Last Admin: 08/23/21 00:56 Dose: 25 mls/hr Documented by: Azithromycin 500 mg/ Sodium (Chloride) 250 mls @ 250 mls/hr IV Q24H [facility] Last Infusion: 08/25/21 15:30 Dose: Infused Documented by: Ceftriaxone Sodium 1 gm/ (Sodium Chloride) 50 mls @ 100 mls/hr IV Q24H [facility] Last Infusion: 08/26/21 14:07 Dose: Infused Documented by: Iopamidol (Iopamidol 755 Mg/Ml 100 Ml Bottle) 100 ml IVPUSH ONETIME ONE Stop: 08/24/21 16:45 Last Admin: 08/24/21 17:10 Dose: 100 ml Documented by: Lorazepam (Lorazepam 2 Mg/Ml Sdv) 1 mg IVPUSH ONETIME ONE Stop: 08/22/21 23:23 Last Admin: 08/22/21 23:29 Dose: 1 mg Documented by: Non-Formulary Medication (Diphenhydramine [Benadryl]) 50 mg PO BID PRN PRN Reason: itchiness Potassium Chloride (Potassium Chloride 10 Meq Tab.Er) 40 meq PO ONETIME ONE Stop: 08/23/21 02:03 Last Admin: 08/23/21 03:09 Dose: 40 meq Documented by: Sodium Phosphate (Phosphorus #1 250 Mg Tab) 250 mg PO QID YVAN Stop: 08/24/21 21:01 Last Admin: 08/24/21 20:51 Dose: 250 mg Documented by: Warfarin Sodium (Warfarin 5 Mg Tab) 5 mg PO ONETIME ONE Stop: 08/25/21 21:01 Last Admin: 08/25/21 21:16 Dose: 5 mg Documented by: Warfarin Sodium (Warfarin 5 Mg Tab) 5 mg PO ONETIME ONE Stop: 08/26/21 14:01 Last Admin: 08/26/21 13:35 Dose: 5 mg Documented by: Warfarin Sodium 5 mg/ Warfarin (Sodium 2.5 mg) 7.5 mg PO ONETIME ONE Stop: 08/27/21 14:01 Last Admin: 08/27/21 13:41 Dose: 7.5 mg Documented by: - Exam Quality Assessment: Supplemental Oxygen General: Alert, Oriented Neck: Supple Lungs: Normal Respiratory Effort, Rhonchi Cardiovascular: Regular Rate, Regular Rhythm GI/Abdominal Exam: Normal Bowel Sounds, Soft, Non-Tender Extremities: No Pedal Edema - Patient Data Lab Results Last 24 hrs: Laboratory Results - last 24 hr 08/27/21 08/27/21 08/27/21 Range/Units 06:40 06:40 06:40 WBC 11.9 H (5.0-10.0) 10^3/uL RBC 3.69 L (4.6-6.2) 10^6/uL Hgb 10.9 L (14.0-18.0) g/dL Hct 34.2 L (40.0-54.0) % MCV 92.7 (80-100) fL MCH 29.5 (27.0-34.0) pg MCHC 31.9 L (33.0-35.0) g/dL Plt Count 428 D (150-450) 10^3/uL Neut % (Auto) 80.2 H (42.2-75.2) % Lymph % (Auto) 10.1 L (20.5-50.1) % [place] % (Auto) 7.5 (2-8) % Eos % (Auto) 2.0 (1.0-3.0) % Baso % (Auto) 0.2 (0.0-1.0) % PT 10.5 (9.0-12.0) SEC INR 1.0 (0.9-1.2) Sodium 134 L (136-145) mmol/L Potassium 4.2 (3.5-5.1) mmol/L Chloride 104 (98-107) mmol/L Carbon Dioxide 22 (21-32) mmol/L Anion Gap 12.2 (7-13) mEq/L BUN 17 (7-18) mg/dL Creatinine 0.60 L (0.70-1.30) mg/dL Est Cr Clr Drug Dosing 155.46 mL/min Estimated GFR (MDRD) > 60 Glucose 107 H (70-99) mg/dL Calcium 7.8 L (8.5-10.1) mg/dL Phosphorus 3.4 (2.6-4.7) mg/dL Magnesium 2.0 (1.8-2.4) mg/dL Total Bilirubin 0.2 (0.2-1.0) mg/dL Direct Bilirubin 0.1 (0.0-0.2) mg/dL Indirect Bilirubin 0.1 AST 17 (15-37) U/L ALT 33 (16-63) U/L Alkaline Phosphatase 110 (46-116) U/L Total Protein 6.5 (6.4-8.2) g/dL Albumin 2.2 L (3.4-5.0) g/dL Globulin 4.3 Albumin/Globulin Ratio 0.51 Result Diagrams: 08/27/21 06:40 08/27/21 06:40 Sammy Results Last 24 hrs: Microbiology 08/22/21 23:05 Aerobic Blood Culture - Preliminary Blood NO GROWTH AFTER 4 DAYS Anaerobic Blood Culture - Preliminary NO GROWTH AFTER 4 DAYS Sepsis Event Note - Evaluation Sepsis Screening Result: No Definite Risk - Focused Exam Vital Signs: Vital Signs Temp Pulse Resp BP Pulse Ox 08/27/21 15:55 98.6 F 77 20 100/66 93 L 08/27/21 12:00 98.6 F 97 22 H 107/76 93 L 08/27/21 08:15 98.5 F 72 18 100/85 93 L - Problem List & Annotations (1) Hypokalemia SNOMED Code(s): 69462714 Code(s): E87.6 - HYPOKALEMIA Status: Acute Current Visit: Yes (2) Hypomagnesemia SNOMED Code(s): 304209731 Code(s): E83.42 - HYPOMAGNESEMIA Status: Acute Current Visit: Yes (3) Pneumonia due to COVID-19 virus SNOMED Code(s): 605566204215862563 Code(s): U07.1 - COVID-19; J12.82 - PNEUMONIA DUE TO CORONAVIRUS DISEASE 2019 Status: Acute Current Visit: Yes (4) Acute respiratory failure with hypoxia SNOMED Code(s): 39538013, 407665915 Code(s): J96.01 - ACUTE RESPIRATORY FAILURE WITH HYPOXIA Status: Acute Priority: High Current Visit: No - Problem List Review Problem List Initiated/Reviewed/Updated: Yes - My Orders Last 24 Hours: My Active Orders 08/26/21 21:00 Enoxaparin [Lovenox] 80 mg SUBCUT Q12HR 08/28/21 05:11 BASIC METABOLIC PANEL,BMP [CHEM] AM CBC WITH AUTO DIFF [HEME] AM INR,PT,PROTHROMBIN TIME [COAG] AM 08/29/21 05:11 BASIC METABOLIC PANEL,BMP [CHEM] AM CBC WITH AUTO DIFF [HEME] AM INR,PT,PROTHROMBIN TIME [COAG] AM 08/30/21 05:11 INR,PT,PROTHROMBIN TIME [COAG] AM 08/31/21 05:11 INR,PT,PROTHROMBIN TIME [COAG] AM 09/01/21 05:11 INR,PT,PROTHROMBIN TIME [COAG] AM - Plan Plan:: Recently hospitalized when presented with suicide attempt with prozac overdose, alcohol intoxication. Was found to be covid positive on that admission on 08/11 without apparent symptoms. Required oxygen on admission. Treated with remdesivir (4 days), dexamethasone. Presented with sob. Says he has not been drinking since discharge. He said his oximeter showed oxygen sats < 90% Acute hypoxemic respiratory failure Hypoxemia noted on admission in er 86% on RA Will supplement oxygen as needed currently on NC - will taper as possible Acute covid 19 pneumonia Symptom onset: asymptomatic at the time of diagnosis Covid test positive: 08/11/21 Treat with dexamethasone Treat with mvi /vit d Follow daily cbc, bmp, trop, procal, ddimer Evaluations for concurrent bacterial pneumonia: Procalcitonin: negative c/o cough with sputum and has leukocytosis started ceftriaxone, azithromycin for possible community acquired pneumonia - stopped on 08/26 - follow wbc and symptoms Evaluations for thrombotic complications Ddimer:improved but still significantly increased LE US neg for DVT CT CHest showed PE on 08/24 treatment: per pharmacy Apixaban/xarelto might cross react with mild allergy - although the milk allergy is questionable - more likely lactose intolerance ongoing dexamethasone might make it even more difficult to evaluate for reaction, then might develop adverse effect when off dexa will anticoagulate with coumadin - in the meantime continue therapeutic lovenox - plan for bridging at home Hypokalemia, hypomagnesemia replaced Htn Treat with norvasc Code status: discussed on admission : full
[2021-08-27] MEDS: Temazepam 15 MG Cap PO PRN (21:25)
[2021-08-28 07:58] LABS: ANION GAP 12.2 mEq/L (7-13); CHLORIDE,CL 106 mmol/L (98-107); SODIUM,NA 136 mmol/L (136-145)
[2021-08-28] MEDS: Dexamethasone 6 MG TABLET PO SCH (08:38)
[2021-08-28] MEDS: Folic Acid 1 MG Tab PO SCH (08:38)
[2021-08-28] MEDS: Multivitamins, Therapeutic with Minerals Tab PO SCH (08:38)
[2021-08-28] MEDS: Enoxaparin 80 MG/0.8 ML Syringe SUBCUT SCH (08:39)
[2021-08-28] MEDS: Thiamine 100 MG Tab PO SCH (08:41)
[2021-08-28] MEDS: Triamcinolone Acetonide 0.1% Crm 15 GM Tube TOP SCH (08:41)
--- NOTE | 2021-08-28 12:08 | PCM.DCSUM1 ---
Discharge Summary - Hospital Course Free Text/Narrative:: Recently hospitalized when presented with suicide attempt with prozac overdose, alcohol intoxication. Was found to be covid positive on that admission on 08/11 without apparent symptoms. Required oxygen on admission. Treated with remdesivir (4 days), dexamethasone. discharged home on 08/15 Presented with sob on 08/23 Said he has not been drinking since discharge. He said his oximeter showed oxygen sats < 90% Acute hypoxemic respiratory failure Hypoxemia noted on admission in er 86% on RA Will supplement oxygen he needs 2 l/min NC oxygen at rest and at night 3 l/min with activity length of need is likely 1 mo or less Acute covid 19 pneumonia Symptom onset: asymptomatic at the time of diagnosis Covid test positive: 08/11/21 Treat with dexamethasone Treat with mvi /vit d does not need respiratory/droplet precautions any more Evaluations for concurrent bacterial pneumonia: Procalcitonin: negative c/o cough with sputum and has leukocytosis started ceftriaxone, azithromycin for possible community acquired pneumonia - stopped on 08/26 - follow wbc and symptoms periodically Evaluations for thrombotic complications noted elevated ddimer LE US neg for DVT CT CHest showed PE on 08/24 treatment: per pharmacy Apixaban/xarelto might cross react with mild allergy - although the milk allergy is questionable - more likely lactose intolerance ongoing dexamethasone might make it even more difficult to evaluate for reaction, then might develop adverse effect when off dexa will anticoagulate with coumadin - in the meantime continue therapeutic lovenox - plan for bridging at home Hypokalemia, hypomagnesemia replaced Htn Treat with norvasc Diagnosis: Stroke: No - Discharge Data Discharge Date: 08/28/21 Discharge Disposition: Home, Self-Care 01 Condition: Stable - Referral to Home Health Primary Care Physician: PCP None - Discharge Diagnosis/Problem(s) (1) Hypokalemia SNOMED Code(s): 01277242 ICD Code: E87.6 - HYPOKALEMIA Status: Acute Current Visit: Yes (2) Hypomagnesemia SNOMED Code(s): 166202807 ICD Code: E83.42 - HYPOMAGNESEMIA Status: Acute Current Visit: Yes (3) Pneumonia due to COVID-19 virus SNOMED Code(s): 698963500043669467 ICD Code: U07.1 - COVID-19; J12.82 - PNEUMONIA DUE TO CORONAVIRUS DISEASE 2019 Status: Acute Current Visit: Yes (4) Acute respiratory failure with hypoxia SNOMED Code(s): 12731312, 066941090 ICD Code: J96.01 - ACUTE RESPIRATORY FAILURE WITH HYPOXIA Status: Acute Priority: High Current Visit: No - Patient Instructions Diet: Heart Healthy Diet Activity: As Tolerated - Discharge Plan *PRESCRIPTION DRUG MONITORING PROGRAM REVIEWED*: No *COPY OF PRESCRIPTION DRUG MONITORING REPORT IN PATIENT RASHMI: No Prescriptions/Med Rec: Warfarin [Coumadin] 5 mg PO DAILY #30 tab dexAMETHasone [Dexamethasone] 6 mg PO DAILY 5 Days #15 tab Folic Acid 1 mg PO DAILY 30 Days #30 tablet Enoxaparin [Lovenox] 80 mg SUBCUT BID #10 syringe Thiamine [Vitamin B-1] 100 mg PO DAILY 30 Days #30 tablet Multivitamins/Minerals [Vitamins and Minerals] 1 tab PO WITHBREAKFAST 30 Days #30 tablet Home Medications: Home Meds Adalimumab [Humira Pen] 40 mg SQ Q14D 04/14/21 [History] Hydrophilic Ointment [Aquaphilic Ointment] 1 dose TOP ASDIRECTED PRN 06/20/21 [History] Multivitamin [Multivitamins] 1 tab PO DAILY 06/20/21 [History] [place]/Min Oil/June/Wool Alcoh [Eucerin Creme] 1 dose TOP BID PRN 08/23/21 [History] FLUoxetine HCl [Prozac] 40 mg PO DAILY 08/23/21 [History] Ferrous Sulfate 325 mg PO Q48H 08/23/21 [History] busPIRone [Buspar] 10 mg PO BID 08/23/21 [History] Enoxaparin [Lovenox] 80 mg SUBCUT BID #10 syringe 08/28/21 [Rx] Folic Acid 1 mg PO DAILY 30 Days #30 tablet 08/28/21 [Rx] Multivitamins/Minerals [Vitamins and Minerals] 1 tab PO WITHBREAKFAST 30 Days #30 tablet 08/28/21 [Rx] Thiamine [Vitamin B-1] 100 mg PO DAILY 30 Days #30 tablet 08/28/21 [Rx] Warfarin [Coumadin] 5 mg PO DAILY #30 tab 08/28/21 [Rx] dexAMETHasone [Dexamethasone] 6 mg PO DAILY 5 Days #15 tab 08/28/21 [Rx] Oxygen Therapy Mode: Nasal Cannula Referrals: Nadir Leal PA-C [Ordering Only Provider] - - Discharge Summary/Plan Comment DC Time >30 min.: Yes Total # of Minutes for Discharge Time: 35 min includes time for planning admission to alcohol treatment, arranging supplemental oxygen - General Info Date of Service: 08/28/21 Subjective Update: feeling better less sleepy less anxiety remained on [place] oxygen no abd pain no apparent bleeding 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 - he thinks he would be able to do lovenox injections at home - Review of Systems General: Denies: Fever Pulmonary: Reports: Shortness of Breath (improved) Cardiovascular: Denies: Chest Pain, Edema Gastrointestinal: Denies: Abdominal Pain Neurological: Denies: Confusion - Patient Data Vitals - Most Recent: Last Vital Signs Temp 96.9 F 08/28/21 08:41 Pulse 74 08/28/21 08:41 Resp 20 08/28/21 08:41 BP 97/59 L 08/28/21 08:41 Pulse Ox 98 08/28/21 08:41 Weight - Most Recent: 178 lb I&O - Last 24 hours: Intake & Output 08/27/21 08/28/21 08/28/21 22:59 06:59 14:59 Intake Total 1560 200 Balance 1560 200 Lab Results - Last 24 hrs: Laboratory Results - last 24 hr 08/28/21 08/28/21 08/28/21 Range/Units 06:30 06:30 06:30 WBC 12.2 H (5.0-10.0) 10^3/uL RBC 3.67 L (4.6-6.2) 10^6/uL Hgb 10.8 L (14.0-18.0) g/dL Hct 34.2 L (40.0-54.0) % MCV 93.2 (80-100) fL MCH 29.4 (27.0-34.0) pg MCHC 31.6 L (33.0-35.0) g/dL Plt Count 490 H (150-450) 10^3/uL Neut % (Auto) 76.2 H (42.2-75.2) % Lymph % (Auto) 11.5 L (20.5-50.1) % [place] % (Auto) 9.5 H (2-8) % Eos % (Auto) 2.5 (1.0-3.0) % Baso % (Auto) 0.3 (0.0-1.0) % Add Manual Diff PT 14.5 H D (9.0-12.0) SEC INR 1.5 H (0.9-1.2) Sodium 136 (136-145) mmol/L Potassium 4.2 (3.5-5.1) mmol/L Chloride 106 (98-107) mmol/L Carbon Dioxide 22 (21-32) mmol/L Anion Gap 12.2 (7-13) mEq/L BUN 21 H (7-18) mg/dL Creatinine 0.57 L (0.70-1.30) mg/dL Est Cr Clr Drug Dosing 163.65 mL/min Estimated GFR (MDRD) > 60 Glucose 96 (70-99) mg/dL Calcium 7.9 L (8.5-10.1) mg/dL [facility] Results - Last 24 hrs: Microbiology 08/22/21 23:05 Aerobic Blood Culture - Final Blood NO GROWTH AFTER 5 DAYS Anaerobic Blood Culture - Final NO GROWTH AFTER 5 DAYS Med Orders - Current: Current Medications Acetaminophen (Acetaminophen 325 Mg Tab) 650 mg PO Q4H PRN PRN Reason: Pain (Mild 1-3)/fever Dexamethasone (Dexamethasone 6 Mg Tablet) 6 mg PO DAILY@0800 [facility] Last Admin: 08/28/21 08:38 Dose: 6 mg Documented by: Docusate Sodium (Docusate Sodium 100 Mg Cap) 100 mg PO BID PRN PRN Reason: Constipation Last Admin: 08/25/21 09:06 Dose: 100 mg Documented by: Enoxaparin Sodium (Enoxaparin 80 Mg/0.8 Ml Syringe) 80 mg SUBCUT Q12HR [facility] Last Admin: 08/28/21 08:39 Dose: 80 mg Documented by: Folic Acid (Folic Acid 1 Mg Tab) 1 mg PO DAILY [facility] Last Admin: 08/28/21 08:38 Dose: 1 mg Documented by: Hydroxyzine HCl (Hydroxyzine Hcl 25 Mg Tab) 25 mg PO Q6H PRN PRN Reason: Itching Last Admin: 08/27/21 21:25 Dose: 25 mg Documented by: Influenza Virus Vaccine (Pharmacy To Dose - Influenza Vaccine) 1 each IM DAILY [facility] Last Admin: 08/27/21 08:20 Dose: Not Given Documented by: Lorazepam (Lorazepam 1 Mg Tab) 1 mg PO Q6H PRN PRN Reason: Anxiety Last Admin: 08/27/21 21:25 Dose: 1 mg Documented by: Multivitamins/Minerals (Multivitamins, Therapeutic With Minerals Tab) 1 tab PO WITHBREAKFAST [facility] Last Admin: 08/28/21 08:38 Dose: 1 tab Documented by: Ondansetron HCl (Ondansetron 4 Mg/2 Ml Sdv) 4 mg IVPUSH Q6H PRN PRN Reason: Nausea/Vomiting Oxycodone HCl (Oxycodone 5 Mg Tab) 5 mg PO Q4H PRN PRN Reason: Pain (moderate 4-6) Sodium Chloride (Sodium Chloride 0.9% 10 Ml Syringe) 10 ml FLUSH ASDIRECTED PRN PRN Reason: Keep Vein Open Temazepam (Temazepam 15 Mg Cap) 15 mg PO BEDTIME PRN PRN Reason: Sleep Last Admin: 08/27/21 21:25 Dose: 15 mg Documented by: Thiamine HCl (Thiamine 100 Mg Tab) 100 mg PO DAILY [facility] Last Admin: 08/28/21 08:41 Dose: 100 mg Documented by: Triamcinolone Acetonide (Triamcinolone Acetonide 0.1% Crm 15 Gm Tube) 0 gm TOP BID [facility] Last Admin: 08/28/21 08:41 Dose: Not Given Documented by: Warfarin Sodium (Pharmacy To Dose - Warfarin) 1 dose .XX ASDIRECTED [facility] Discontinued Medications Amlodipine Besylate (Amlodipine 5 Mg Tab) 5 mg PO DAILY [facility] Amlodipine Besylate (Amlodipine 5 Mg Tab) 5 mg PO ONETIME ONE Stop: 08/23/21 03:01 Last Admin: 08/23/21 03:09 Dose: 5 mg Documented by: Apixaban (Apixaban 5 Mg Tab) 10 mg PO BID [facility] Dexamethasone (Dexamethasone 4 Mg/Ml Sdv) 6 mg IVPUSH ONETIME ONE Stop: 08/22/21 23:15 Last Admin: 08/22/21 23:26 Dose: 6 mg Documented by: Enoxaparin Sodium (Enoxaparin 80 Mg/0.8 Ml Syringe) 80 mg SUBCUT Q12H [facility] Last Admin: 08/24/21 14:23 Dose: 80 mg Documented by: Enoxaparin Sodium (Enoxaparin 80 Mg/0.8 Ml Syringe) 80 mg SUBCUT Q12H [facility] Last Admin: 08/25/21 10:32 Dose: 80 mg Documented by: Magnesium Sulfate 2 gm/ Premix 50 mls @ 25 mls/hr IV ONETIME ONE Stop: 08/23/21 02:33 Last Admin: 08/23/21 00:47 Dose: 25 mls/hr Documented by: Potassium Chloride 20 meq/ (Premix) 100 mls @ 50 mls/hr IV ONETIME ONE Stop: 08/23/21 02:33 Last Admin: 08/23/21 00:46 Dose: 50 mls/hr Documented by: Sodium Chloride (Normal Saline) 500 mls @ 25 mls/hr IV .BOLUS [facility] Last Admin: 08/23/21 00:56 Dose: 25 mls/hr Documented by: Azithromycin 500 mg/ Sodium (Chloride) 250 mls @ 250 mls/hr IV Q24H [facility] Last Infusion: 08/25/21 15:30 Dose: Infused Documented by: Ceftriaxone Sodium 1 gm/ (Sodium Chloride) 50 mls @ 100 mls/hr IV Q24H [facility] Last Infusion: 08/26/21 14:07 Dose: Infused Documented by: Iopamidol (Iopamidol 755 Mg/Ml 100 Ml Bottle) 100 ml IVPUSH ONETIME ONE Stop: 08/24/21 16:45 Last Admin: 08/24/21 17:10 Dose: 100 ml Documented by: Lorazepam (Lorazepam 2 Mg/Ml Sdv) 1 mg IVPUSH ONETIME ONE Stop: 08/22/21 23:23 Last Admin: 08/22/21 23:29 Dose: 1 mg Documented by: Non-Formulary Medication (Diphenhydramine [Benadryl]) 50 mg PO BID PRN PRN Reason: itchiness Potassium Chloride (Potassium Chloride 10 Meq Tab.Er) 40 meq PO ONETIME ONE Stop: 08/23/21 02:03 Last Admin: 08/23/21 03:09 Dose: 40 meq Documented by: Sodium Phosphate (Phosphorus #1 250 Mg Tab) 250 mg PO QID [facility] Stop: 08/24/21 21:01 Last Admin: 08/24/21 20:51 Dose: 250 mg Documented by: Warfarin Sodium (Warfarin 5 Mg Tab) 5 mg PO ONETIME ONE Stop: 08/25/21 21:01 Last Admin: 08/25/21 21:16 Dose: 5 mg Documented by: Warfarin Sodium (Warfarin 5 Mg Tab) 5 mg PO ONETIME ONE Stop: 08/26/21 14:01 Last Admin: 08/26/21 13:35 Dose: 5 mg Documented by: Warfarin Sodium 5 mg/ Warfarin (Sodium 2.5 mg) 7.5 mg PO ONETIME ONE Stop: 08/27/21 14:01 Last Admin: 08/27/21 13:41 Dose: 7.5 mg Documented by: - Exam Quality Assessment: Reports: Supplemental Oxygen General: Reports: Alert, Oriented Neck: Reports: Supple Lungs: Reports: Normal Respiratory Effort, Rhonchi Cardiovascular: Reports: Regular Rate, Regular Rhythm GI/Abdominal Exam: Normal Bowel Sounds, Soft, Non-Tender Extremities: No Pedal Edema
[2021-08-28] MEDS: hydrOXYzine HCl 25 MG Tab PO PRN (13:29)
[2021-08-28] MEDS ORDERED: Warfarin 2.5 MG Tab PO ONE (14:00)
[2021-08-28 15:59] VITALS: BP 110/69; PULSE 83
== END 2021-08-28 17:00 | disposition home or self-care (01) | DRG 177 ==
LOC: DL.ED 22:44 → UNDOADMIN 08-23 00:16 → DL.MS 08-23 00:16
PROVIDERS: ADMIT Internal Medicine; ATTEND Internal Medicine
PROC: 3E0333Z Introduction of Anti-inflammatory into Peripheral Vein, Percutaneous Approach (ICD-10-PCS; 2021-08-22)
PROC: 3E0DX3Z Introduction of Anti-inflammatory into Mouth and Pharynx, External Approach (ICD-10-PCS; principal; 2021-08-23)
DX: U07.1 COVID-19 (principal); J12.82 Pneumonia due to coronavirus disease 2019; J96.01 Acute respiratory failure with hypoxia; E87.6 Hypokalemia; E83.42 Hypomagnesemia; R09.02 Hypoxemia; I10 Essential (primary) hypertension; H54.7 Unspecified visual loss; Q60.0 Renal agenesis, unilateral; F41.9 Anxiety disorder, unspecified; F32.A Depression, unspecified; F10.20 Alcohol dependence, uncomplicated; Y90.9 Presence of alcohol in blood, level not specified; L30.9 Dermatitis, unspecified; Z91.011 Allergy to milk products; Z88.1 Allergy status to other antibiotic agents; Z88.8 Allergy status to other drugs, medicaments and biological substances; Z91.048 Other nonmedicinal substance allergy status; Z91.018 Allergy to other foods; Z79.899 Other long term (current) drug therapy; Z87.01 Personal history of pneumonia (recurrent); Z28.82 Immunization not carried out because of caregiver refusal
CPT/HCPCS: 36415; 71045; 71260; 80048; 80053; 80076; 80305-QW; 80307; 81003; 82150; 83605; 83690; 83735; 84100; 84145; 85025; 85379; 85610; 87040; 93005; 93970; 96374; 96375; 99285-25; A9270-GY; J0456; J0696; J1100; J1650; J2060; J3475; J3480; J7040; J7050; J8540; Q9967

== ENCOUNTER 2021-10-03 12:33 | Emergency (ER) | payer MEDICARE, MEDICAID ==
[2021-10-03 13:11] LABS: BASE EXCESS ARTERIAL -25 mmol/L ((-2)-(+3)); BICARBONATE,ARTERIAL 4.2 mmol/L (22-26); O2 DELIVERY DEVICE NON REBR MASK; O2 SATURATION ARTERIAL 100 % (95-100); PO2 ARTERIAL 178 mmHg (70-100)
[2021-10-03 13:14] LABS: PCO2 ARTERIAL 16 mmHg (35-45)
[2021-10-03 13:15] LABS: ALLEN TEST pos; O2 FLOW RATE 15
[2021-10-03 13:26] LABS: ANION GAP 36.5 mEq/L (7-13); CHLORIDE,CL 103 mmol/L (98-107); SODIUM,NA 142 mmol/L (136-145)
[2021-10-03 14:10] VITALS: BP 88/52; PULSE 92
[2021-10-03] MEDS ORDERED: Pantoprazole 40 MG Vial IVPUSH ONE (14:56)
[2021-10-03] MEDS ORDERED: Phytonadione 5 MG in Sodium Chloride 0.9% 50 ML IV ONE (15:01)
[2021-10-03] MEDS ORDERED: Ondansetron 4 MG/2 ML SDV IVPUSH ONE (15:16)
== END 2021-10-03 19:40 ==
LOC: DL.ED 12:33
DX: K92.2 Gastrointestinal hemorrhage, unspecified (principal); D64.9 Anemia, unspecified; I10 Essential (primary) hypertension; Z86.16 Personal history of COVID-19; Z91.011 Allergy to milk products; Z91.018 Allergy to other foods; Z88.8 Allergy status to other drugs, medicaments and biological substances; Z88.1 Allergy status to other antibiotic agents; Z91.048 Other nonmedicinal substance allergy status; Z79.01 Long term (current) use of anticoagulants; Z79.899 Other long term (current) drug therapy
CPT/HCPCS: 36415; 36430; 36600; 70450; 70486; 71250; 72125; 74176; 80053; 80307; 82272; 82803; 83605; 84484; 85025; 85379; 85610; 86850; 86900; 86901; 86920; 86922; 87040; 96365; 96375; 99285; C9113; J2405; J3430; P9016

== ENCOUNTER 2021-10-19 23:27 | Emergency (ER) | payer MEDICARE, MEDICAID ==
[2021-10-20 01:53] LABS: ANION GAP 17.8 mEq/L (7-13); CHLORIDE,CL 108 mmol/L (98-107); SODIUM,NA 145 mmol/L (136-145)
[2021-10-20] MEDS ORDERED: Pantoprazole 40 MG Vial IVPUSH ONE (02:03)
[2021-10-20 07:25] LABS: AMPHETAMINES,URINE NEGATIVE (NEGATIVE); BARBITURATES,URINE NEGATIVE (NEGATIVE); BENZODIAZEPINE,URINE NEGATIVE (NEGATIVE); MDMA (ECSTASY), URINE NEGATIVE (NEGATIVE); METHADONE,URINE NEGATIVE (NEGATIVE); METHAMPHETAMINES,URINE NEGATIVE (NEGATIVE); OPIATES,URINE NEGATIVE (NEGATIVE); OXYCODONE,URINE NEGATIVE (NEGATIVE); PHENCYCLIDINE,URINE NEGATIVE (NEGATIVE); TCA,URINE NEGATIVE (NEGATIVE)
[2021-10-20 08:30] VITALS: BP 145/84; PULSE 88
== END 2021-10-20 10:28 | disposition home or self-care (01) ==
LOC: DL.ED 23:27
DX: D64.9 Anemia, unspecified (principal); I10 Essential (primary) hypertension; Z86.711 Personal history of pulmonary embolism; Z86.16 Personal history of COVID-19; Z91.011 Allergy to milk products; Z91.018 Allergy to other foods; Z88.8 Allergy status to other drugs, medicaments and biological substances; Z88.1 Allergy status to other antibiotic agents; Z91.048 Other nonmedicinal substance allergy status; Z79.01 Long term (current) use of anticoagulants; Z79.899 Other long term (current) drug therapy
CPT/HCPCS: 36415; 36430; 80053; 80305; 80307; 81001; 82272; 85014; 85018; 85025; 85610; 86850; 86900; 86901; 86920; 86922; 96374; 99284; C9113; P9016

== ENCOUNTER 2021-10-21 23:20 | Emergency (ER) | payer MEDICARE, MEDICAID ==
[~2021-10-21 23:20] MED LIST changes: -Diphtheria,Pertussis(Acell),Tetanus Vaccine 0.5 ML SDV IM ONE; -Ondansetron 4 MG/2 ML SDV IV ONE
[2021-10-21] MEDS ORDERED: Rocuronium 100 MG/10 ML MDV IV ONE (23:21)
[2021-10-21] MEDS ORDERED: Succinylcholine 200 MG/10 ML MDV IV ONE (23:21)
[2021-10-21] MEDS ORDERED: Propofol 200 MG/20 ML SDV IV ONE (23:21)
[2021-10-21 23:45] LABS: ANION GAP 17.3 mEq/L (7-13); CHLORIDE,CL 106 mmol/L (98-107); SODIUM,NA 142 mmol/L (136-145)
[2021-10-22] MEDS ORDERED: Sodium Chloride 0.9% 1,000 ML IV ONE ×2 (00:13→02:52)
[2021-10-22 00:38] LABS: O2 DELIVERY DEVICE ROOM AIR
[2021-10-22 00:44] LABS: BASE EXCESS VENOUS -1.8 mmol/l ((-2)-(+3)); BICARBONATE,VENOUS 22 mmol/l (19-25); O2 SATURATION VENOUS 96.2 % (60-80); PCO2 VENOUS 37 mmHg (41-51); PO2 VENOUS 76 mmHg (35-42)
[2021-10-22 00:46] LABS: O2 FLOW RATE 0
[2021-10-22 01:05] LABS: AMPHETAMINES,URINE NEGATIVE (NEGATIVE); BARBITURATES,URINE NEGATIVE (NEGATIVE); BENZODIAZEPINE,URINE NEGATIVE (NEGATIVE); MDMA (ECSTASY), URINE NEGATIVE (NEGATIVE); METHADONE,URINE NEGATIVE (NEGATIVE); METHAMPHETAMINES,URINE NEGATIVE (NEGATIVE); OPIATES,URINE NEGATIVE (NEGATIVE); OXYCODONE,URINE NEGATIVE (NEGATIVE); PHENCYCLIDINE,URINE NEGATIVE (NEGATIVE); TCA,URINE NEGATIVE (NEGATIVE)
[2021-10-22 03:16] VITALS: PULSE 86
[2021-10-22 03:22] LABS: ANION GAP 19.6 mEq/L (7-13); CHLORIDE,CL 109 mmol/L (98-107); SODIUM,NA 147 mmol/L (136-145)
[2021-10-22 04:33] LABS: O2 DELIVERY DEVICE NASAL CANNULA
[2021-10-22 04:50] LABS: BASE EXCESS VENOUS -4.2 mmol/l ((-2)-(+3)); BICARBONATE,VENOUS 18 mmol/l (19-25); O2 SATURATION VENOUS 100.2 % (60-80); PCO2 VENOUS 24 mmHg (41-51); PH,VENOUS 7.48 (7.31-7.41); PO2 VENOUS 184 mmHg (35-42)
[2021-10-22 04:52] LABS: O2 FLOW RATE 4
[2021-10-22] MEDS ORDERED: Furosemide 40 MG/4 ML VIAL IVPUSH ONE (05:04)
[2021-10-22] MEDS ORDERED: Furosemide 40 MG/4 ML VIAL ONE (05:07)
[2021-10-22 05:13] VITALS: BP 147/86
[2021-10-22] MEDS ORDERED: Midazolam 50 MG in Sodium Chloride 0.9% 40 ML IV SCH (05:30)
[2021-10-22] MEDS ORDERED: fentaNYL 100 MCG/2 ML SDV IVPUSH ONE (05:43)
== END 2021-10-22 06:27 ==
LOC: DL.ED 23:20
DX: T43.221A Poisoning by selective serotonin reuptake inhibitors, accidental (unintentional), initial encounter (principal); J81.1 Chronic pulmonary edema; D64.9 Anemia, unspecified; F10.10 Alcohol abuse, uncomplicated; I10 Essential (primary) hypertension; Z91.011 Allergy to milk products; Z91.018 Allergy to other foods; Z88.1 Allergy status to other antibiotic agents; Z91.048 Other nonmedicinal substance allergy status; Z72.0 Tobacco use; Z20.822 Contact with and (suspected) exposure to COVID-19
CPT/HCPCS: 31500; 36415; 36430; 71045; 80053; 80305; 80307; 81003; 82272; 82803; 83605; 83690; 83735; 84100; 85025; 85610; 86140; 86850; 86900; 86901; 86920; 86922; 93005; 96365; 96375; 99285; J0330; J1940; J2250; J2704; J3010; J7030; P9016; U0002

== ENCOUNTER 2021-11-27 03:26 | Emergency (ER) | payer MEDICARE, MEDICAID ==
[2021-11-27] MEDS ORDERED: Doxycycline Monohydrate 100 MG Cap PO ONE (03:47)
[2021-11-27 03:51] VITALS: BP 173/107; PULSE 89
== END 2021-11-27 04:03 | disposition home or self-care (01) ==
LOC: DL.ED 03:26
DX: L03.115 Cellulitis of right lower limb (principal); L03.116 Cellulitis of left lower limb; I10 Essential (primary) hypertension; Z91.011 Allergy to milk products; Z91.018 Allergy to other foods; Z88.1 Allergy status to other antibiotic agents; Z79.01 Long term (current) use of anticoagulants; Z79.899 Other long term (current) drug therapy
CPT/HCPCS: 99283; A9270

== ENCOUNTER 2021-12-29 00:33 | Emergency (ER) | payer MEDICARE, MEDICAID ==
[2021-12-29 01:15] VITALS: BP 134/66; PULSE 100
[2021-12-29 01:38] LABS: ANION GAP 18.6 mEq/L (7-13); CHLORIDE,CL 100 mmol/L (98-107); SODIUM,NA 135 mmol/L (136-145)
[2021-12-29 01:39] LABS: ACETAMINOPHEN 0 ug/mL (10-30 (Therapeutic))
[2021-12-29 01:46] LABS: CORONAVIRUS COVID-19 NAA NEGATIVE (NEGATIVE)
[2021-12-29] MEDS ORDERED: diphenhydrAMINE 25 MG Tab PO ONE (01:56)
== END 2021-12-29 03:53 | disposition home or self-care (01) ==
LOC: DL.ED 00:33
DX: R06.02 Shortness of breath (principal); U09.9 Post COVID-19 condition, unspecified; L30.9 Dermatitis, unspecified; I10 Essential (primary) hypertension; Z91.011 Allergy to milk products; Z91.018 Allergy to other foods; Z91.048 Other nonmedicinal substance allergy status; Z72.0 Tobacco use; Z20.822 Contact with and (suspected) exposure to COVID-19
CPT/HCPCS: 0240U; 36415; 71045; 80053; 80143; 80179; 80307; 82140; 82150; 83605; 83690; 83735; 84484; 85025; 87040; 93005; 99285; A9270; 93010; 99284

== ENCOUNTER 2022-01-09 00:18 | Emergency (ER) | payer MEDICARE, MEDICAID ==
[~2022-01-09 00:18] MED LIST changes: +Acetaminophen 500 MG Tab PO ONE; +Sodium Chloride 0.9% 1,000 ML IV ONE; -Sodium Chloride 0.9% 10 ML Syringe FLUSH PRN
[2022-01-09 00:36] LABS: BASE EXCESS ARTERIAL -4 mmol/L ((-2)-(+3)); BICARBONATE,ARTERIAL 19.1 mmol/L (22-26); O2 DELIVERY DEVICE NASAL CANNULA; O2 SATURATION ARTERIAL 96 % (95-100); PCO2 ARTERIAL 30 mmHg (35-45); PO2 ARTERIAL 73 mmHg (70-100)
[2022-01-09 00:39] LABS: ALLEN TEST rb; O2 FLOW RATE 4
[2022-01-09] MEDS ORDERED: Ibuprofen 600 MG Tab PO ONE (00:50)
[2022-01-09] MEDS ORDERED: Ondansetron 4 MG/2 ML SDV IVPUSH ONE (00:50)
[2022-01-09 00:57] LABS: ANION GAP 19.9 mEq/L (7-13); CHLORIDE,CL 104 mmol/L (98-107); SODIUM,NA 141 mmol/L (136-145)
[2022-01-09 01:01] LABS: AMPHETAMINES,URINE NEGATIVE (NEGATIVE); BARBITURATES,URINE NEGATIVE (NEGATIVE); BENZODIAZEPINE,URINE NEGATIVE (NEGATIVE); MDMA (ECSTASY), URINE NEGATIVE (NEGATIVE); METHADONE,URINE NEGATIVE (NEGATIVE); METHAMPHETAMINES,URINE NEGATIVE (NEGATIVE); OPIATES,URINE NEGATIVE (NEGATIVE); OXYCODONE,URINE NEGATIVE (NEGATIVE); PHENCYCLIDINE,URINE NEGATIVE (NEGATIVE); TCA,URINE NEGATIVE (NEGATIVE)
[2022-01-09 01:03] LABS: ACETAMINOPHEN 0 ug/mL (10-30 (Therapeutic))
[2022-01-09 01:05] LABS: PTT,PARTIAL THROMBOPLSTIN TIME 25.4 SEC (22.0-34.0)
[2022-01-09] MEDS ORDERED: Sodium Chloride 0.9% 1,000 ML IV ONE (01:17)
[2022-01-09] MEDS ORDERED: Magnesium Sulfate/Water 2 GM in Premix Bag 1 BAG IV ONE (01:35)
[2022-01-09 03:22] VITALS: BP 96/47; PULSE 124
== END 2022-01-09 03:20 ==
LOC: DL.ED 00:18
DX: T49.0X2A Poisoning by local antifungal, anti-infective and anti-inflammatory drugs, intentional self-harm, initial encounter (principal); F10.920 Alcohol use, unspecified with intoxication, uncomplicated; E83.42 Hypomagnesemia; L30.9 Dermatitis, unspecified; I10 Essential (primary) hypertension; Z88.8 Allergy status to other drugs, medicaments and biological substances; Z88.0 Allergy status to penicillin; Z20.822 Contact with and (suspected) exposure to COVID-19; Z79.899 Other long term (current) drug therapy
CPT/HCPCS: 36415; 36600; 80053; 80143; 80179; 80305; 80307; 81001; 82150; 82803; 82947; 83605; 83690; 83735; 84443; 84484; 85025; 85610; 85730; 86140; 87040; 93005; 96365; 96366; 96375; 99285; A9270; J2405; J3475; J7030; U0002